=== PATIENT | male | born 1970 | race African-American/Black ===

== ENCOUNTER 2017-07-03 08:44 | Inpatient (IN) | payer OTHER ==
[~2017-07-03] VITALS: Ht 170.2 cm; Wt 117.8 kg
[2017-07-03] VITALS (12 sets, daily range): BP systolic 104–128; BP diastolic 62–89; PULSE 89–101; RESP 20–28; TEMP 97.8–98.3; O2SAT 94–99
[~2017-07-03 08:44] MED LIST: OXYC-360 PO
[2017-07-03] MEDS ORDERED: ASPIRIN 325 MG TAB PO ONE (09:45)
[2017-07-03] MEDS ORDERED: SODIUM CHLORIDE 0.9% FLUSH 10 ML FLUSH IVF PRN (09:45)
--- NOTE | 2017-07-03 10:00 | PD ---
HPI Chief Complaint: Chest Pain Time Seen by Provider: 09:39 Travel History International Travel<30 days: No Contact w/Intl Traveler<30days: No Traveled to known affect area: No History of Present Illness HPI This patient complains of shortness of breath and chest pain. Duration 2 days. Severity is moderate. He has an anterior sternal heaviness and pressure. He also feels dyspneic. Worse with exertion. He does have a cough. Denies fever or hemoptysis. No alleviating factors. Symptoms of no exacerbating factors. Denies history of coronary artery disease. Chest pain is intermittent and spells are lasting around 10 minutes. PFSH Past Medical History Medical History: Denies Significant Hx Diminished Hearing: No Influenza Vaccination: No ?: Not Past Surgical History Surgical History: No Previous Surgery Social History Alcohol Use: Yes (OCASIONALLY) Tobacco Use: Yes (PPD) Substance Use: No Allergies-Medications (Allergen,Severity, Reaction): Coded Allergies: No Known Allergies (Verified Adverse Reaction, Unknown, 07/03/17) Reported Meds & Prescriptions Reported Meds & Active Scripts Active No Active Prescriptions or Reported Medications Review of Systems General / Constitutional: No: Fever Eyes: No: Visual changes HENT: Positive: Congestion, No: Headaches Cardiovascular: Positive: Chest Pain or Discomfort Respiratory: Positive: Cough, Shortness of Breath Gastrointestinal: No: Abdominal Pain Genitourinary: No: Dysuria Musculoskeletal: No: Pain Skin: No Rash Neurologic: No: Weakness Psychiatric: No: Depression Endocrine: No: Polydipsia Hematologic/Lymphatic: No: Easy Bruising Physical Exam Narrative GENERAL: Well-nourished, well-developed patient in no apparent distress. SKIN: Focused skin assessment reveals no rash and nodules. Skin is Warm and dry. HEAD: Atraumatic. Normocephalic. EYES: Pupils equal and round. No scleral icterus. No injection or drainage. ENT: No nasal bleeding or discharge. Mucous membranes pink and moist. NECK: Trachea midline. No JVD. CARDIOVASCULAR: Regular rate and rhythm. No murmur appreciated. RESPIRATORY: No accessory muscle use. Clear to auscultation. Breath sounds equal bilaterally. GASTROINTESTINAL: Abdomen soft, non-tender, obese, nondistended. Hepatic and splenic margins not palpable. MUSCULOSKELETAL: No obvious deformities. No clubbing. No cyanosis. No edema. NEUROLOGICAL: Awake and alert. No obvious cranial nerve deficits. Motor grossly within normal limits. Normal speech. PSYCHIATRIC: Appropriate mood and affect; insight and judgment normal. Data Data Last Documented VS Vital Signs Date Time Temp Pulse Resp B/P (MAP) Pulse Ox O2 Delivery O2 Flow Rate FiO2 07/03/17 12:06 89 28 118/62 (80) 98 Nasal Cannula 2.00 07/03/17 09:27 98.0 Orders Orders Electrocardiogram (07/03/17 09:45) Basic Metabolic Panel (Bmp) (07/03/17 09:45) Ckmb (Isoenzyme) Profile (07/03/17 09:45) Complete Blood Count With Diff (07/03/17 09:45) D-Dimer (07/03/17 09:45) Prothrombin Time / Inr (Pt) (07/03/17 09:45) Act Partial Throm Time (Ptt) (07/03/17 09:45) Troponin I (07/03/17 09:45) Chest, Single Ap (07/03/17 09:45) Ecg Monitoring (07/03/17 09:45) Iv Access Insert/Monitor (07/03/17 09:45) Oximetry (07/03/17 09:45) Oxygen Administration (07/03/17 09:45) Aspirin (Aspirin) (07/03/17 09:45) Sodium Chloride 0.9% Flush (Ns Flush) (07/03/17 09:45) CKMB (07/03/17 09:40) CKMB% (07/03/17 09:40) Ct Pulmonary Angiogram (07/03/17 ) Iohexol 350 Inj (Omnipaque 350 Inj) (07/03/17 11:14) Furosemide Inj (Lasix Inj) (07/03/17 11:45) Nitroglycerin 2% Oint (Nitroglycerin 2% (07/03/17 11:45) Enoxaparin Inj (Lovenox Inj) (07/03/17 11:45) Chest, Pa & Lat (07/03/17 ) Drug Screen, Random Urine (07/03/17 11:56) Alcohol (Ethanol) (07/03/17 11:56) Tylenol (Acetaminophen) (07/03/17 11:56) Salicylates (Aspirin) (07/03/17 11:56) Place In Observation (07/03/17 ) Vital Signs (Adult) MELISSA.Q4H (07/03/17 11:57) Activity Bed Rest (07/03/17 11:57) Durable Medical Equipment Repairer / Telemetry MELISSA.Q8H (07/03/17 11:57) Intake + Output 06,14,22 (07/03/17 11:57) Notify Dr: Other (07/03/17 11:57) Resp Oxygen Tom C Titrat 1-4 L (07/03/17 ) Sodium Chloride 0.9% Flush (Ns Flush) (07/03/17 12:00) Sodium Chloride 0.9% Flush (Ns Flush) (07/03/17 12:00) Labs Laboratory Tests Test 07/03/17 09:40 White Blood Count 8.8 TH/MM3 Red Blood Count 4.66 MIL/MM3 Hemoglobin 13.8 GM/DL Hematocrit 40.0 % Mean Corpuscular Volume 85.8 FL Mean Corpuscular Hemoglobin 29.6 PG Mean Corpuscular Hemoglobin Concent 34.5 % Red Cell Distribution Width 15.5 % Platelet Count 274 TH/MM3 Mean Platelet Volume 8.1 FL Neutrophils (%) (Auto) 70.7 % Lymphocytes (%) (Auto) 18.6 % Monocytes (%) (Auto) 8.7 % Eosinophils (%) (Auto) 0.8 % Basophils (%) (Auto) 1.2 % Neutrophils # (Auto) 6.2 TH/MM3 Lymphocytes # (Auto) 1.6 TH/MM3 Monocytes # (Auto) 0.8 TH/MM3 Eosinophils # (Auto) 0.1 TH/MM3 Basophils # (Auto) 0.1 TH/MM3 CBC Comment DIFF FINAL Differential Comment Prothrombin Time 12.7 SEC Prothromb Time International Ratio 1.3 RATIO Activated Partial Thromboplast Time 25.8 SEC D-Dimer Quantitative (PE/DVT) 1.97 MG/L FEU Blood Urea Nitrogen 10 MG/DL Creatinine 1.02 MG/DL Random Glucose 177 MG/DL Calcium Level 8.7 MG/DL Sodium Level 139 MEQ/L Potassium Level 4.3 MEQ/L Chloride Level 107 MEQ/L Carbon Dioxide Level 27.1 MEQ/L Anion Gap 5 MEQ/L Estimat Glomerular Filtration Rate 95 ML/MIN Total Creatine Kinase 321 U/L Creatine Kinase MB 2.5 NG/ML Creatine Kinase MB % 0.8 % Troponin I 0.90 NG/ML Salicylates Level LESS THAN 1.7 MG/DL MDM Medical Decision Making Medical Screen Exam Complete: Yes Emergency Medical Condition: Yes Medical Record Reviewed: Yes Differential Diagnosis PR, ACS, COPD, pneumonia, PE Narrative Course I have reviewed the patient's electronic medical record. IV placed I reviewed the EKG which shows sinus rhythm and no acute ST elevation I reviewed the chest x-ray which shows a large size heart with bibasilar effusion Extended cardiac monitoring shows sinus rhythm without ectopy CBC is normal Metabolic profile is normal CK is normal Troponin is elevated at 0.9 Coagulation studies are normal D-dimer is elevated and therefore not useful to rule out PE CT pulmonary angiogram was done as dyspnea was his main complaint. It is negative for PE. It shows bilateral pleural effusion and some diffuse groundglass infiltrates the radiologist suspects is edema He does have some mild lower extremity symmetric edema I gave him 40 mg IV Lasix and 100 mg subcutaneous Lovenox and 2 inches of nitroglycerin paste Patient will require inpatient telemetry admission I reviewed with medical residents who will admit for acute coronary syndrome and dyspnea Critical Care Narrative Aggregate critical care time was 35 minutes. Time to perform other separately billable procedures was not included in the critical care time. My time did not include minutes spent treating any other patients simultaneously or on activities that did not directly contribute to the patient's treatment. The services I provided to this patient were to treat and/or prevent clinically significant deterioration that could result in: Cardiopulmonary arrest, myocardial damage, cardiac arrhythmia I provided critical care services requiring my management, as noted below: Chart data review, documentation time, medication orders and management, vital sign assessments/reviewing monitor data, ordering and reviewing lab tests, ordering and interpreting/reviewing x-rays and diagnostic studies, care of the patient and discussion of the patient with the admitting physicians. Diagnosis Primary Impression: Acute coronary syndrome Additional Impression: Shortness of breath Admitting Information Admitting Physician Requests: Admit Scripts No Active Prescriptions or Reported Meds Carlos Le MD Jul 03, 2017 10:00
--- NOTE | 2017-07-03 10:04 | RADRPT ---
EXAM DATE/TIME: 07/03/2017 09:52 [facility] COMPARISON: No previous studies available for comparison. INDICATIONS : Chest pain, short of breath. MEDICAL HISTORY : None. SURGICAL HISTORY : None. ENCOUNTER: Initial ACUITY: 2 days PAIN SCORE: 7/10 LOCATION: Bilateral chest FINDINGS: A single portable frontal view the chest is lordotic in position. Lung bases are limited in evaluatio n due to the lordotic nature in conjunction with the patient's body habitus. No gross infiltrate or e ffusion. Heart is normal in size. Bony structures are unremarkable. CONCLUSION: Limited evaluation of the lung bases as detailed above. A lateral view the chest would be a better ev aluation. No infiltrate or effusion observed. Rodolfo Layne Jr., MD on July 03, 2017 at 10:00 Board Certified Radiologist. This report was verified electronically.
[2017-07-03 10:09] LABS: AUTOMATED NEUTROPHIL # 6.2 TH/MM3 (1.8-7.7); BASOPHIL # 0.1 TH/MM3 (0-0.2); BASOPHIL % 1.2 % (0.0-2.0); EOSINOPHIL # 0.1 TH/MM3 (0-0.4); EOSINOPHIL % 0.8 % (0.0-4.0); HEMOGLOBIN 13.8 GM/DL (13.0-17.0); LYMPH % 18.6 % (9.0-44.0); LYMPHOCYTE # 1.6 TH/MM3 (1.0-4.8); MEAN CELL VOLUME 85.8 FL (80.0-100.0); MEAN CORPUSCULAR HEMOGLOBIN 29.6 PG (27.0-34.0); MEAN CORPUSCULAR HGB CONC 34.5 % (32.0-36.0); MEAN PLATELET VOLUME 8.1 FL (7.0-11.0); MONO % 8.7 % (0.0-8.0); MONOCYTE # 0.8 TH/MM3 (0-0.9); NEUT % 70.7 % (16.0-70.0); PLATELET COUNT 274 TH/MM3 (150-450); RED BLOOD COUNT 4.66 MIL/MM3 (4.50-5.90); RED CELL DISTRIBUTION WIDTH 15.5 % (11.6-17.2); WHITE BLOOD COUNT 8.8 TH/MM3 (4.0-11.0)
[2017-07-03 10:20] LABS: INTERNATIONAL NORMALIZED RATIO 1.3 RATIO; PROTHROMBIN TIME - PATIENT 12.7 SEC (9.8-11.6)
[2017-07-03 10:35] LABS: BICARBONATE 27.1 MEQ/L (21.0-32.0); CALCIUM 8.7 MG/DL (8.5-10.1); CREATININE 1.02 MG/DL (0.60-1.30); D-DIMER 1.97 MG/L FEU (0.00-0.50)
[2017-07-03 10:45] LABS: TROPONIN I 0.9 NG/ML (0.02-0.05)
[2017-07-03] MEDS ORDERED: IOHEXOL 350 MG/ML 10 ML VIAL (for RAD DIAG) IVCONTRAST ONE (11:14)
--- NOTE | 2017-07-03 11:27 | RADRPT ---
EXAM DATE/TIME: 07/03/2017 11:08 [facility] COMPARISON: No previous studies available for comparison. INDICATIONS : Chest pain, shortness of breath. IV CONTRAST: 73 cc Omnipaque 350 (iohexol) IV RADIATION DOSE: 23.22 CTDIvol (mGy) MEDICAL HISTORY : None SURGICAL HISTORY : None. ENCOUNTER: Initial ACUITY: 2 days PAIN SCALE: 10/10 LOCATION: chest TECHNIQUE: Volumetric scanning of the chest was performed using a pulmonary embolism protocol MIP images were re constructed. Using automated exposure control and adjustment of the mA and/or kV according to patien t size, radiation dose was kept as low as reasonably achievable to obtain optimal diagnostic quality images. DICOM format image data is available electronically for review and comparison. Follow-up recommendations for detected pulmonary nodules are based at a minimum on nodule size and pa tient risk factors according to Fleischner Society Guidelines. FINDINGS: Study is breathing motion degraded. PULMONARY ARTERIES: The pulmonary arteries are limited in their evaluation due to breathing motion artifact. This limitat ion involves the segmental branches. The more central pulmonary arteries are well evaluated. No filli ng defects observed. LUNGS: Diffuse bilateral groundglass opacities. No mass or bronchiectasis. PLEURAE: Moderate size bilateral pleural effusions are posteriorly layering. MEDIASTINUM: The heart is at the upper limits of normal in terms of size. No pericardial effusion. Mediastinal rosario nopathy is noted involving the anterior mediastinum. The largest lymph node is posterior to the SVC m easuring 2.8 x 1.9 cm. MUSCULOSKELETAL: Within normal limits for patient age. MISCELLANEOUS: The visualized upper abdominal organs demonstrate no acute abnormality. CONCLUSION: 1. Limited study due to breathing motion artifact. 2. No pulmonary embolus. 3. Bilateral pleural effusions and diffuse bilateral groundglass infiltrates. I suspect pulmonary heena ma. Rodolfo Layne Jr., MD on July 03, 2017 at 11:20 Board Certified Radiologist. This report was verified electronically.
[2017-07-03] MEDS ORDERED: ENOXAPARIN SODIUM 100 MG/ML SYRINGE SQ ONE (11:45)
[2017-07-03] MEDS ORDERED: FUROSEMIDE 40 MG/4 ML VIAL IV PUSH ONE (11:45)
[2017-07-03] MEDS ORDERED: NITROGLYCERIN 2% OINT 1 GM PACKET TOPICAL ONE (11:45)
[2017-07-03] MEDS ORDERED: SODIUM CHLORIDE 0.9% FLUSH 10 ML FLUSH IV FLUSH SCH (12:00)
[2017-07-03] MEDS ORDERED: SODIUM CHLORIDE 0.9% FLUSH 10 ML FLUSH IV FLUSH PRN ×2 (12:00→13:45)
[2017-07-03 12:25] LABS: ACETAMINOPHEN LESS THAN 2.0 MCG/ML (10.0-30.0)
--- NOTE | 2017-07-03 12:43 | RADRPT ---
EXAM DATE/TIME: 07/03/2017 12:19 [facility] COMPARISON: CHEST SINGLE AP, July 03, 2017, 9:52. INDICATIONS : Chest pain. MEDICAL HISTORY : None. SURGICAL HISTORY : None. ENCOUNTER: Initial ACUITY: 1 day PAIN SCORE: 7/10 LOCATION: Bilateral chest FINDINGS: Slight cardiomegaly has not changed. There may be a small loculated pleural effusion on the right beau e posteriorly. Slight degree of pulmonary venous congestion and pulmonary edema is seen. CONCLUSION: Mild CHF and possible mild loculated pleural effusion on the right. Kunal Mock MD on July 03, 2017 at 12:39 Board Certified Radiologist. This report was verified electronically.
--- NOTE | 2017-07-03 13:30 | HHI.HP ---
HPI Service Family Medicine Primary Care Physician No Primary Care Physician Admission Diagnosis ACS,short of breath Diagnoses: Chief Complaint: SOB, CP International Travel<30 Days: No Contact w/Intl Traveler<30days: No Known Affected Area: No History of Present Illness Mr Costa is a 46YO male with no PCP and has been told he has HTN in the past presents with a week of SOB progressively getting worse and new onset intermittent chest pain. He reports the dyspnea began a week ago and he thought it would stop or get better but it hasn't. He feels like he he gets out of breath very easy now and feels very anxious because he feels like he is going to . The CP began within the last day or so and pt states the pain is substernal with radiation to his left shoulder and has occurred both at rest and with walking/activity. The pain is 7/10 on pain scale and is worse with inspiration. Coughing makes the pain worse. He has taken no pain medication and , in fact, takes no medications. He denies cold and flu sxs recently. He has a little lower abdominal pain which he can palpate on his belly, but has no N/V. He says he now has a headache too but doesn't have a hx of HAs. Denies hx of [place] , but feels like he has a fair amount of stress. He denies drug (and specifically, cocaine) use. Denies visual sxs but indicates he has seen bright red blood in his stool recently. (Orlando Pollock MD R1) Review of Systems Constitutional: COMPLAINS OF: Weight gain, DENIES: Fever, Weight loss, Chills, Night Sweats Eyes: DENIES: Blurred vision, Diplopia, Vision loss Ears, nose, mouth, throat: DENIES: Hearing loss, Nasal discharge, Running Nose , Sinus Pain Respiratory: COMPLAINS OF: Cough, Snoring, Wheezing, Shortness of breath, DENIES: Hemoptysis, Sputum production Cardiovascular: COMPLAINS OF: Chest pain (radiation to left shoulder), Palpitations, Dyspnea on Exertion, Lower Extremity Edema, DENIES: Syncope, Orthopnea Gastrointestinal: COMPLAINS OF: Abdominal pain, Bloody stools, Constipation, DENIES: Black stools, Diarrhea, Nausea, Vomiting Genitourinary: DENIES: Urinary frequency, Urinary incontinence, Urgency, Hematuria, Dysuria Musculoskeletal: COMPLAINS OF: Joint pain (left shoulder) Integumentary: DENIES: Pruritus, Rash Hematologic/lymphatic: DENIES: Lymphadenopathy Neurologic: COMPLAINS OF: Headache, DENIES: Paresthesias, Seizures (Orlando Pollock MD R1) Past Family Social History Past Medical History denies; however, has been told in the past that he has high blood pressure Past Surgical History none Reported Medications none (Orlando Pollock MD R1) Allergies: Coded Allergies: No Known Allergies (Verified Allergy, Unknown, 07/03/17) Active Ordered Medications Current Medications Medications (Trade) Dose Ordered Sig/Elsa Route Start Time Stop Time Status Last Admin (NS Flush) 2 ml UNSCH PRN IVF 07/03/17 09:45 (NS Flush) 2 ml UNSCH PRN IV FLUSH 07/03/17 12:00 (NS Flush) 2 ml BID IV FLUSH 07/03/17 12:00 07/03/17 12:42 Family History Mother - 62 YOA of COPD, extensive smoking hx Father - in 60s of HTN Social History EtOH - none Tobacco - smokes 1ppd x 20 years Drug - none Lives with Sakshi and daughter No pets (Orlando Pollock MD R1) Physical Exam Vital Signs Vital Signs Date Time Temp Pulse Resp B/P (MAP) Pulse Ox O2 Delivery O2 Flow Rate FiO2 07/03/17 12:06 89 28 118/62 (80) 98 Nasal Cannula 2.00 07/03/17 10:30 99 Nasal Cannula 2.00 07/03/17 09:27 90 28 98 Nasal Cannula 2.00 07/03/17 09:27 98.0 93 28 122/64 (83) 99 Nasal Cannula 2.00 07/03/17 08:46 97.8 101 26 120/88 (99) 97 Physical Exam GENERAL: This is a well-nourished, well-developed obese AAM patient, lying in bed in moderate distress. SKIN: No rashes or ecchymose. Cool and dry. Venous stasis dermatitis over bilateral LEs below the knees. HEAD: Atraumatic. Normocephalic. EYES: Pupils equal round and reactive. Extraocular motions intact. No scleral icterus. No injection or drainage. ENT: Nose without bleeding, drainage or septal abnormality. Throat without erythema, tonsillar hypertrophy or exudate. Uvula midline. Airway patent. MMM. NECK: Trachea midline. No lymphadenopathy. Supple, nontender, no meningeal signs. CARDIOVASCULAR: Regular rate and rhythm without murmur, gallop, or rub. RESPIRATORY: Distant bibasilar breath sounds c/w fluid level posteriorly. Upper lung padilla CTAB. No wheezes, rales, or rhonchi. GASTROINTESTINAL: Abdomen soft, non-tender, distended. No hepato-splenomegaly, or palpable masses. No guarding. MUSCULOSKELETAL: Extremities without clubbing, cyanosis, or edema. No joint tenderness, effusion, or edema noted. No calf tenderness. NEUROLOGICAL: Awake and alert. Cranial nerves II through XII intact. Motor and sensory grossly within normal limits. Five out of 5 muscle strength in all muscle groups. Normal speech. Laboratory Laboratory Tests Test 07/03/17 09:40 White Blood Count 8.8 Red Blood Count 4.66 Hemoglobin 13.8 Hematocrit 40.0 Mean Corpuscular Volume 85.8 Mean Corpuscular Hemoglobin 29.6 Mean Corpuscular Hemoglobin Concent 34.5 Red Cell Distribution Width 15.5 Platelet Count 274 Mean Platelet Volume 8.1 Neutrophils (%) (Auto) 70.7 Lymphocytes (%) (Auto) 18.6 Monocytes (%) (Auto) 8.7 Eosinophils (%) (Auto) 0.8 Basophils (%) (Auto) 1.2 Neutrophils # (Auto) 6.2 Lymphocytes # (Auto) 1.6 Monocytes # (Auto) 0.8 Eosinophils # (Auto) 0.1 Basophils # (Auto) 0.1 CBC Comment DIFF FINAL Differential Comment Prothrombin Time 12.7 Prothromb Time International Ratio 1.3 Activated Partial Thromboplast Time 25.8 D-Dimer Quantitative (PE/DVT) 1.97 Blood Urea Nitrogen 10 Creatinine 1.02 Random Glucose 177 Calcium Level 8.7 Sodium Level 139 Potassium Level 4.3 Chloride Level 107 Carbon Dioxide Level 27.1 Anion Gap 5 Estimat Glomerular Filtration Rate 95 Total Creatine Kinase 321 Creatine Kinase MB 2.5 Creatine Kinase MB % 0.8 Troponin I 0.90 Salicylates Level LESS THAN 1.7 Acetaminophen Level LESS THAN 2.0 Ethyl Alcohol Level LESS THAN 3 (Orlando Pollock MD R1) Result Diagram: 07/03/17 0940 07/03/17 0940 Imaging Last Impressions Chest X-Ray 07/03/17 0945 Signed Impressions: Service Date/Time: June 09:52 - CONCLUSION: Limited evaluation of the lung bases as detailed above. A lateral view the chest would be a better evaluation. No infiltrate or effusion observed. Rodolfo Layne Jr., MD CT Angiography 07/03/17 0000 Signed Impressions: Service Date/Time: June 11:08 - CONCLUSION: 1. Limited study due to breathing motion artifact. 2. No pulmonary embolus. 3. Bilateral pleural effusions and diffuse bilateral groundglass infiltrates. I suspect pulmonary edema. Rodolfo Layne Jr., MD (Orlando Pollock MD R1) Septic Shock Reassessment Septic shock perfusion: reassessment completed (Orlando Pollock MD R1) Caprini VTE Risk Assessment Caprini VTE Risk Assessment: No/Low Risk (score <= 1) Caprini Risk Assessment Model Point Value = 1 Point Value = 2 Point Value = 3 Point Value = 5 Age 41-60 Minor surgery BMI > 25 kg/m2 Swollen legs Varicose veins or History of unexplained or recurrent spontaneous Oral contraceptives or hormone replacement Sepsis (< 1 month) Serious lung disease, including pneumonia (< 1 month) Abnormal pulmonary function Acute myocardial infarction Congestive heart failure (< 1 month) History of inflammatory bowel disease Medical patient at bed rest Age 61-74 Arthroscopic surgery Major open surgery (> 45 min) Laparoscopic surgery (> 45 min) Malignancy Confined to bed (> 72 hours) Immobilizing plaster cast Central venous access Age >= 75 History of VTE Family history of VTE Factor V Leiden Prothrombin [id number] Lupus anticoagulant Anticardiolipin antibodies Elevated serum homocysteine Heparin-induced thrombocytopenia Other congenital or acquired thrombophilia Stroke (< 1 month) Elective arthroplasty Hip, pelvis, or leg fracture Acute spinal cord injury (< 1 month) Prophylaxis Regimen Total Risk Factor Score Risk Level Prophylaxis Regimen 0-1 Low Early ambulation 2 Moderate Order ONE of the following: *Sequential Compression Device (SCD) *Heparin 5000 units SQ BID 3-4 Higher Order ONE of the following medications: *Heparin 5000 units SQ TID *Enoxaparin/Lovenox 40 mg SQ daily (WT < 150 kg, CrCl > 30 mL/min) *Enoxaparin/Lovenox 30 mg SQ daily (WT < 150 kg, CrCl > 10-29 mL/min) *Enoxaparin/Lovenox 30 mg SQ BID (WT < 150 kg, CrCl > 30 mL/min) AND/OR *Sequential Compression Device (SCD) 5 or more Highest Order ONE of the following medications: *Heparin 5000 units SQ TID (Preferred with Epidurals) *Enoxaparin/Lovenox 40 mg SQ daily (WT < 150 kg, CrCl > 30 mL/min) *Enoxaparin/Lovenox 30 mg SQ daily (WT < 150 kg, CrCl > 10-29 mL/min) *Enoxaparin/Lovenox 30 mg SQ BID (WT < 150 kg, CrCl > 30 mL/min) AND *Sequential Compression Device (SCD) (Orlando Pollock MD R1) Assessment and Plan Assessment and Plan 46 YO male with likely Hx of HTN p/w 2 days of CP and 1 week of SOB - ACS r/o empirically; Dr Adhikari took pt to [facility] for left heart cath reported to be wnl, but with concern for cardiomyopathy. Impression: D-dimer 1.57 CTA with No pulmonary embolus. Bilateral pleural effusions and diffuse bilateral ground glass infiltrates. pulmonary edema suspected. Repeat CXR with mild CHF and possible mild loculated pleural effusion on right EKG: POSSIBLE LEFT ATRIAL ENLARGEMENT; MARKED LEFT AXIS DEVIATION; ST DEVIATION AND MODERATE T-WAVE ABNORMALITY, CONSIDER LATERAL ISCHEMIA ABNORMAL ECG Since the prior tracing, there has been no significant change UDS and EtOH neg CBC wnl BMP wnl (glucose 177) Tropnin 0.90 -> 0.81-> 0.68 BNP 467 Total CK 321-> 311-> 253 CK-MB wnl x3 Lipid panel Trig 200 / Chol 186 / LDL 117 / HDL 28.9 1. Atypical CP - ACS r/o - pt risk factors include obesity and smoking hx -As per EKG above, consider lateral ischemia -As per CXR above, Mild CHF -Morphine 2mg q8h IV PRN -O2 supplemental and titrate for effect -Nitroglycerin ointment 0.5inch q3h PRN -ASA 325mg -Consider starting BB in AM (holding due to CHF component and BP in 120s/60s) -Consider starting NICHELLE in AM -Atorvastatin 40mg qhs -Heparin -ECHO results wnl but with cardiomyopathy -Left heart cath wnl 07/03 -Lasix 40mg BID -Lipid panel results as above -Ativan 0.5mg q6h IV PRN 2. Dyspnea -Supplemental O2 as above -Duonebs q4h scheduled -Albuterol nebs q4h PRN -Mucinex BID 3. Tobacco abuse -Encourage smoking cessation 4. HLD -Atorvastatin 40 qhs as above -Encourage lifestyle changes in weight and diet 5. FEN/GI/PPx: Fluids: PO only; pt fluid overloaded Electrolytes: wnl; will monitor and replete as necessary Nutrition: heart healthy diet; Na restriction 2gm per day GI: Protonix 40mg PO daily PPx: Redose Heparin in AM Code Status Full Code Discussed Condition With Korin Pritchard and Diana (Orlando Pollock MD R1) Attending Attestation The patient has been seen and examined. The chart and all resident notes have been reviewed. I agree that inpatient care is appropriate and that a two midnight stay is expected for the reasons documented in the resident history and physical. I have discussed this with the resident and certify the resident s order for inpatient admission. (Alicia Pritchard MD) Problem List: (1) Acute coronary syndrome ICD Codes: I24.9 - Acute ischemic heart disease, unspecified Status: Acute (2) Shortness of breath ICD Codes: R06.02 - Shortness of breath Status: Acute (3) HLD (hyperlipidemia) ICD Codes: E78.5 - Hyperlipidemia, unspecified (4) Tobacco abuse ICD Codes: Z72.0 - Tobacco use (5) FEN/GI/PPx (Orlando Pollock MD R1) Problem Qualifiers (1) HLD (hyperlipidemia): Qualified Codes: E78.2 - Mixed hyperlipidemia Orlando Pollock MD R1 Jul 03, 2017 13:30 Alicia Pritchard MD Jul 07, 2017 09:20
[2017-07-03] MEDS ORDERED: NITROGLYCERIN 2% OINT 1 GM PACKET TOP PRN (13:45)
[2017-07-03] MEDS ORDERED: ONDANSETRON HCL 4 MG/2 ML VIAL IV PUSH PRN (13:45)
[2017-07-03] MEDS ORDERED: DOCUSATE SODIUM 100 MG CAP PO PRN (13:45)
[2017-07-03] MEDS ORDERED: LORazepam 2 MG/ML VIAL IV PUSH PRN (14:00)
[2017-07-03] MEDS: MORPHINE SULFATE 4 MG/ML INJ IV PUSH PRN ×2 (14:32→19:31)
--- NOTE | 2017-07-03 15:24 | PD.CONS ---
HPI Consult Requested By Primary Care Physician No Primary Care Physician History of Present Illness 46 y/o M smoker, obese that presents with complaints of worsening SOB on minimal exertion and chest pain with inspiration. No leg edema or PND. D-Dimer elevated. CTA negative for PE. Troponin trending up. EKG SR with inferior Q waves and non specific ST changes. Cardiology consulted for further evaluation and management. Review of Systems Consitutional: DENIES: Fatigue, Fever, Chills, Weight gain, Weight loss Eyes: DENIES: Amaurosis Fugax, Change in vision HEENT: DENIES: Lightheadedness, Change in hearing Respiratory: COMPLAINS OF: See HPI, Shortness of breath, DENIES: Cough, Snoring , Wheezing, Sputum production Cardiovascular: COMPLAINS OF: See HPI, Chest pain, DENIES: Palpitations, Syncope, Tachycardia Gastrointestinal: DENIES: Nausea, Vomiting, Change in bowel habits, Reflux, Bloody stools, Melena Genitourinary: DENIES: Urinary incontinence, Difficulty voiding Integumentary: DENIES: Rash Neurologic: DENIES: Tingling or numbness, Memory problems, Poor Balance, Stroke symptoms Musculoskeletal: DENIES: Joint pain, Muscle pain, Limited range of motion, Back pain Psychiatric: DENIES: Anxiety, Depression, Sleep disturbances Endocrine: DENIES: Weight gain, Weight loss, Thyroid disease Past Family Social History Allergies: Coded Allergies: No Known Allergies (Verified Allergy, Unknown, 07/03/17) Reported Medications Reported Meds & Active Scripts Active No Active Prescriptions or Reported Medications Active Ordered Medications Current Medications Medications (Trade) Dose Ordered Sig/Elsa Route Start Time Stop Time Status Last Admin (NS Flush) 2 ml BID IV FLUSH 07/03/17 21:00 (NS Flush) 2 ml UNSCH PRN IV FLUSH 07/03/17 13:45 (Ecotrin Ec) 325 mg DAILY PO 07/04/17 09:00 (Nitroglycerin 2% Oint) 0.5 inch Q6HR PRN TOP 07/03/17 13:45 (Morphine Inj) 2 mg Q2HR PRN IV PUSH 07/03/17 13:45 07/03/17 14:32 (Tylenol) 650 mg Q6H PRN PO 07/03/17 13:45 (Colace) 100 mg BID PRN PO 07/03/17 13:45 (Zofran Inj) 4 mg Q6H PRN IV PUSH 07/03/17 13:45 (Lipitor) 40 mg HS PO 07/03/17 21:00 (Ativan Inj) 0.5 mg Q6H PRN IV PUSH 07/03/17 14:00 Social History smoker Physical Exam Vital Signs Vital Signs Date Time Temp Pulse Resp B/P (MAP) Pulse Ox O2 Delivery O2 Flow Rate FiO2 07/03/17 14:06 98.3 94 20 128/69 (88) 97 07/03/17 12:06 89 28 118/62 (80) 98 Nasal Cannula 2.00 07/03/17 10:30 99 Nasal Cannula 2.00 07/03/17 09:27 90 28 98 Nasal Cannula 2.00 07/03/17 09:27 98.0 93 28 122/64 (83) 99 Nasal Cannula 2.00 07/03/17 08:46 97.8 101 26 120/88 (99) 97 Physical Exam GENERAL: Well-nourished, well-developed patient. SKIN: Warm and dry. HEAD: Normocephalic. EYES: No scleral icterus. No injection or drainage. NECK: Supple, trachea midline. No JVD or lymphadenopathy. CARDIOVASCULAR: Regular rate and rhythm without murmurs, gallops, or rubs. RESPIRATORY: Breath sounds equal bilaterally. No accessory muscle use. GASTROINTESTINAL: Abdomen soft, non-tender, nondistended. EXTREMITIES: No cyanosis, or edema. NEUROLOGICAL: Awake, alert, and oriented x 3. Non-focal. Laboratory Laboratory Tests Test 07/03/17 09:40 07/03/17 13:42 07/03/17 14:24 White Blood Count 8.8 Red Blood Count 4.66 Hemoglobin 13.8 Hematocrit 40.0 Mean Corpuscular Volume 85.8 Mean Corpuscular Hemoglobin 29.6 Mean Corpuscular Hemoglobin Concent 34.5 Red Cell Distribution Width 15.5 Platelet Count 274 Mean Platelet Volume 8.1 Neutrophils (%) (Auto) 70.7 Lymphocytes (%) (Auto) 18.6 Monocytes (%) (Auto) 8.7 Eosinophils (%) (Auto) 0.8 Basophils (%) (Auto) 1.2 Neutrophils # (Auto) 6.2 Lymphocytes # (Auto) 1.6 Monocytes # (Auto) 0.8 Eosinophils # (Auto) 0.1 Basophils # (Auto) 0.1 CBC Comment DIFF FINAL Differential Comment Prothrombin Time 12.7 Prothromb Time International Ratio 1.3 Activated Partial Thromboplast Time 25.8 D-Dimer Quantitative (PE/DVT) 1.97 Blood Urea Nitrogen 10 Creatinine 1.02 Random Glucose 177 Calcium Level 8.7 Sodium Level 139 Potassium Level 4.3 Chloride Level 107 Carbon Dioxide Level 27.1 Anion Gap 5 Estimat Glomerular Filtration Rate 95 Total Creatine Kinase 321 Creatine Kinase MB 2.5 Creatine Kinase MB % 0.8 Troponin I 0.90 Salicylates Level LESS THAN 1.7 Acetaminophen Level LESS THAN 2.0 Ethyl Alcohol Level LESS THAN 3 Urine Opiates Screen NEG Urine Barbiturates Screen NEG Urine Amphetamines Screen NEG Urine Benzodiazepines Screen NEG Urine Cocaine Screen NEG Urine Cannabinoids Screen NEG Result Diagram: 07/03/17 0940 07/03/17 0940 Imaging Last Impressions Chest X-Ray 07/03/17 0945 Signed Impressions: Service Date/Time: June 09:52 - CONCLUSION: Limited evaluation of the lung bases as detailed above. A lateral view the chest would be a better evaluation. No infiltrate or effusion observed. Rodolfo Layne Jr., MD CT Angiography 07/03/17 0000 Signed Impressions: Service Date/Time: June 11:08 - CONCLUSION: 1. Limited study due to breathing motion artifact. 2. No pulmonary embolus. 3. Bilateral pleural effusions and diffuse bilateral groundglass infiltrates. I suspect pulmonary edema. Rodolfo Layne Jr., MD Assessment and Plan Problem List: (1) Shortness of breath ICD Codes: R06.02 - Shortness of breath Status: Acute Plan: 46y/o M with cardiac risk factors that include obesity, smoker presents with elevated troponin and EKG changes in the setting of worsening WOLF and atypical chest pain. No previous cardiac hx, however significant SOB/WOLF ? angina equivalent. Recommend LHC for CAD risk stratification. Risk benefits of LHC +/- including but not limited to neurovascular trauma, kidney failure, stroke, CABG, bleeding, infection and have been explained to patient. He understands risk and is willing to proceed. Recommendations: 1. Keep NPO for LHC today 2. ECHO 3. ASA and Heparin drip 4. Lipid panel 5. Smoking cessation Levi Guerrero MD Jul 03, 2017 15:24
[2017-07-03] MEDS ORDERED: HEPARIN-NS/PF INJ 1,000 ML ONE (15:32)
[2017-07-03] MEDS ORDERED: MIDAZOLAM HCL 2 MG/2 ML VIAL ONE (15:32)
[2017-07-03] MEDS ORDERED: VERAPAMIL HCL 5 MG/2 ML VIAL ONE (15:42)
[2017-07-03] MEDS ORDERED: NITROGLYCERIN INJ 5 ML ONE (15:42)
[2017-07-03] MEDS ORDERED: HEPARIN SODIUM - IV 10,000 UNITS/10 ML VIAL ONE (15:42)
[2017-07-03] MEDS ORDERED: FUROSEMIDE 40 MG/4 ML VIAL ONE (16:05)
--- NOTE | 2017-07-03 16:22 | CATHPROC ---
[employer] HIS Report Study Information Study Number Admission Scheduled Start Study Start [id number] Jul 03 2017 12:27PM 07/03/2017 Jul 03 2017 3:32PM [place] Service Cardiac Catheterization Admit Source Facility Department Emergency department [facility] - [employer] Reading Teacher Physician and Clinical Staff Initial Levi Bal Bisque Finishernav Spivey RN, Darren Gordon RN Other cathlab, cathlab Recorder Nany Herndon,VISUAL AID EXPERT TECH2 Scrub Chip Baez RCIS(BS) Procedures Performed Procedure Location (Site) Vessel Name Coronary Angiograms LCA Left Coronary Coronary Angiograms RCA Right Coronary L Heart Cath LV Gram-hand inj. LV LV Ventricle Equipment Time Laborer Driver Description Size Mfg Part Number Used/Scraped TRANSDUCER, TRUWAVE [id number] 15:33 CISNEROS PORTER * Used W/STOCKCOCK *[id number] TRANSDUCER, TRUWAVE [id number] 15:40 CISNEROS PORTER * Used W/STOCKCOCK *[id number] 15:40 [employer] [place] PACK, CCL CUSTOM * Used *[id number] 15:33 [employer] [place] PACK, CCL CUSTOM * Used *[id number] 15:33 [employer] SUPPORT, ARTERIAL ADULT [id number] *[id number] Used 15:40 [employer] SUPPORT, ARTERIAL ADULT 43427 *[id number] Used [id number] 16:05 MEDTRONIC JL 3.5 DXTERITY CATHETER FR 5 Used *[id number] 15:58 [employer] JR 4.0 DXTERITY CATHETER FR 5 Used *[id number] BAND, RADIAL COMPRESSION TR [id number] 16:12 [employer] 29CM Used LARGE 29 *[id number] 15:40 [employer] WIRE, 3MMJ .035 180CM 180CM Used *[id number] [id number] 15:33 [employer] WIRE, 3MMJ .035 180CM 180CM Used *[id number] 15:33 NAMIC MANIFOLD, 4 PORT * Used *[id number] 15:40 [employer] MANIFOLD, 4 PORT * Used *[id number] 15:33 [employer] OMNIPAQUE, 350 MG, 150ML 150ML [id number] Used 15:40 [employer] OMNIPAQUE, 350 MG, 150ML 150ML [id number] Used [id number] 15:40 [employer] BLANKET,WARM AIR CCL * Used *[id number] [id number] 15:33 [facility] BLANKET,WARM AIR CCL * Used *[id number] SHEATH, FR6 TRANSRADIAL RM*[id number] 15:33 [employer] MED[employer] FR 6 Used SLENDER 10CM *[id number] SHEATH, FR6 TRANSRADIAL [id number] 15:40 [employer] FR 6 Used SLENDER 10CM *[id number] Equipment Model, Serial, Lot Number and Expiration Data Description Model Number Serial Number Lot Number Expiration Date JR 4.0 DXTERITY CATHETER [id number] 03-13-2020 History: Allergies Allergy Reaction No Known Allergies History: Risk Factors Family History of Hypertension Dyslipidemia Previous [place] Previous Heart Failure Premature CAD No No No No No Prior Valve Prior PCI Prior CABG Surgery No No No Cerebrovascular Peripheral Artery Chronic Lung On Dialysis Diabetes Disease Disease Disease No No No No No History: Symptoms/Diagnosis Selection Items SOB History: Stress Tests Stress or Imaging Studies Performed No History: Other Current Smoker Packs a Day Years Used Pack Years Yes 1 20 Labs Hgb (g/dl) Hct (%) WBC (l/cumm) Platelets (thousands) 11.60-17.00 35.00-51.00 4.00-11.00 150.00-450.00 13.8 40 8.8 274 Glucose (mg/dl) BUN (mg/dl) Creatinine (mg/dl) BUN:Creatinine (1:x) 74.00-106.00 7.00-18.00 0.50-1.30 10.00-20.00 177 10 1.0 10 Na (meq/l) K (meq/l) 136.00-145.00 3.50-5.10 139 4.3 Troponin I (ng/ml) CPK-MB (ng/ML) 0.02-0.05 0.50-3.60 0.9 2.5 Medication Medication Total Dose (Bolus/Oral) Medication Total Dosage/Unit 1% XYLOCAINE 20 mL FENTANYL 50 mcg LASIX 40 mg OXYGEN 3 l/min RADIAL COCKTAIL 5 mL (Bolus) VERSED 1 mg Medications (Bolus/Oral) Medication Time Given Dosage/Unit Administered By Reason OXYGEN 07/03/2017 3:31:50 PM 3 l/min Levi Guerrero Patient arrived on 3 l/min OXYGEN given by Levi Guerrero via Nasal. Ordered by Levi Guerrero. FENTANYL 07/03/2017 3:55:44 PM 50 mcg Wojciech Spivey RN 50 mcg FENTANYL given in lab by Wojciech Spivey RN in Left Antecubital via Peripheral IV. Ordered by Levi Washington. VERSED 07/03/2017 3:56:10 PM 1 mg Wojciech Spivey RN 1 mg VERSED given in lab by Wojciech Spivey RN in Left Antecubital via Peripheral IV. Ordered by Levi Haskins. 1% XYLOCAINE 07/03/2017 3:56:20 PM 20 mL Levi Guerrero 20 mL 1% XYLOCAINE given in lab by Levi Guerrero in Right Radial via Subcutaneous. Ordered by Levi Washington. Ntg 200mcg Verapamil 2.5mg Heparin RADIAL COCKTAIL 07/03/2017 3:57:48 PM 5 mL (Bolus) Wojciech Spivey RN 2500U 5 mL (Bolus) RADIAL COCKTAIL given in lab by Wojciech Spivey RN via Radial. Using [Solution Name]. Order ed by Levi Guerrero. Reason: Ntg 200mcg Verapamil 2.5mg Heparin 2500U. LASIX 07/03/2017 4:08:59 PM 40 mg Wojciech Spivey RN 40 mg LASIX given in lab by Wojciech Spivey RN in Right Antecubital via Peripheral IV. Ordered by Levi Stapleton. Medication (Drip) Medication Time Given Dosage/Unit Concentration/Unit Diluent (ml) Solution IV Solutions 07/03/2017 3:32:06 PM 0 mL (IV) 500 NaCl .9 IV Solutions given in lab by Wojciech Spivey RN in Left Antecubital via Peripheral IV. Pump/Drip Flow = 20 ml/hr using NaCl .9. Ordered by Levi Guerrero. Initial Case Assessment Cardiovascular HR NIBP 91 120/81 Edema Present Skin color Skin None Normal Warm Dry Circulatory - Right Pulses Dorsalis Pedis Femoral Radial 3 3 3 Scale (0,1,2,3,4,d) Circulatory - Left Pulses Dorsalis Pedis Femoral Radial 3 Scale (0,1,2,3,4,d) Neurological State Oriented to time-place- Alert Moves all extremities person Respiration - General Respiration Rate SpO2 (%) O2 (lpm) (B/min) 13 97 3 Final Case Assessment Cardiovascular HR NIBP 93 141/74 Edema Present Skin color Skin None Normal Warm Dry Circulatory - Right Pulses Dorsalis Pedis Femoral 3 3 Scale (0,1,2,3,4,d) Circulatory - Left Pulses Dorsalis Pedis Femoral 3 Scale (0,1,2,3,4,d) Neurological State Oriented to time-place- Alert Moves all extremities person Respiration - General Respiration Rate SpO2 (%) O2 (lpm) (B/min) 15 95 3 Chronological Log Time Study Chronological Log 15::42 Patient arrived via Bed. 15::43 Patient Name, D.O.B, / Armband Verified By R.N. 15::43 Consent signed by the physician and the patient and verified by the [employer] Reading Teacher staff. 15:31:44 Pre-op and post- op instructions given; patient acknowledges understanding of instructions. Verbal Stimulation=~VERBAL~ Physical Stimulation=~PHYSICAL~ Airway=~AIRWAY~ Respiration=~RESPIR ATION~ 15::44 TOTAL=~TOTAL~. (0=absent, 1=limited, 2=present) 15:31:48 Presedation assessment performed by [employer] Reading Teacher RN. 15:31:50 Patient arrived on 3 l/min OXYGEN given by Levi Guerrero via Nasal. Ordered by Levi Saldana. 15:31:55 Allens test performed on the right radial and ulnar artery. 15:31:57 Patient has been NPO for More than 6Hrs. 15:31:58 Skin Breakdown- 15:31:59 Patient Warmer Placed on the Table. 15:32:03 Lita Prominences Protected 15:32:05 A # 20 IV was noted in the Antecubital (left). Grade = 0 IV Solutions given in lab by Wojciech Spivey RN in Left Antecubital via Peripheral IV. Pump/Drip F low = 20 ml/hr using NaCl 15:32:06 .9. Ordered by Levi Guerrero. 15:32:06 History and physical on the chart or being dictated. Assessment: Initial Case, HR=91 BPM, ZLFW=080/81 mmhg, Edema=None, Color=Normal, Skin = Warm, D ry Right Pulses: Asad Ped=3, Femoral=3, Radial=3 15:32:08 Left Pulses: Femoral=3 Neurological: State=Alert, Ox3, FINLEY Respiration: Resp=13 B/min, SpO2=97 %, O2=3 lpm Vitals capture started with the following parameters, Patient=Adult, Interval=5 min, Initial Pr rewbzl=494 mmHg, 15:39:10 Deflation Rate=5 mmHg, Cuff placed on Left Arm 15:39:48 HR=91 bpm, FMGF=220/81 mmhg, SpO2=97.0 %, Resp=13 B/min, Pain=0, Marta=10, Teixeira=2 15:40:39 Allens test performed on the right radial and ulnar artery. 15:41:13 Reference ECG taken 15:44:41 HR=91 bpm, LEOL=394/81 mmhg, SpO2=96.0 %, Resp=14 B/min, Pain=0, Marta=10, Teixeira=2 15:47:18 Right Radial right groin prepped with 2% chlorhexidine, and draped after a 3 min. waiting t pauly. 15:49:44 HR=91 bpm, WTDB=062/79 mmhg, SpO2=97 %, Resp=13 B/min, Pain=0, Marta=10, Teixeira=2 15:51:32 Pressure channel 1 zeroed. 15:54:43 HR=95 bpm, BDIK=413/94 mmhg, SpO2=97.0 %, Resp=15 B/min, Pain=0, Marta=10, Teixeira=2 15:55:44 50 mcg FENTANYL given in lab by Wojciech Spivey RN in Left Antecubital via Peripheral IV. Orde red by Levi Guerrero. 15:56:10 1 mg VERSED given in lab by Wojciech Spivey RN in Left Antecubital via Peripheral IV. Ordered by Levi Guerrero. Time Out. Correct patient, correct procedure, correct physician, power injector loaded, or not loaded with contrast with 15:56:17 surgical team present. Time Out Concurred by MD and individual staff in procedure. 15:56:18 Case Start 20 mL 1% XYLOCAINE given in lab by Levi Guerrero in Right Radial via Subcutaneous. Ordered by Cesar 15:56:20 Levi. 15:57:40 Access site was Radial Artery. 5 mL (Bolus) RADIAL COCKTAIL given in lab by Wojciech Spivey RN via Radial. Using [Solution Name]. Ordered by Shayy 15:57:48 Levi Shoemaker. Reason: Ntg 200mcg Verapamil 2.5mg Heparin 2500U. A JR 4.0 DXTERITY CATHETER FR 5 was advanced over a wire. OMNIPAQUE, 350 MG, 150ML 150ML was us ed for 15:58:23 injections. Recorded Pressure: LV, HR=92, Condition=Condition 1 15:58:59 (Left Ventricle) LV 106/28/25 15:59:00 The LV was manually injected with 10 cc's and visualized. OMNIPAQUE, 350 MG, 150ML 150ML us ed. 15:59:42 GV=014 bpm, LUAJ=562/98 mmhg, SpO2=96.0 %, Resp=29 B/min, Pain=0, Marta=10, Teixeira=2 16:01:19 The RCA was injected and visualized at various angles. OMNIPAQUE, 350 MG, 150ML 150ML used . 16:04:12 Catheter was removed A JL 3.5 DXTERITY CATHETER FR 5 was advanced over a wire. OMNIPAQUE, 350 MG, 150ML 150ML was us ed for 16:04:13 injections. Recorded Pressure: Ao, HR=93, Condition=Condition 1 16:04:15 (Aorta) Ao 113/86/99 16:04:41 HR=94 bpm, IJGD=293/88 mmhg, SpO2=93.0 %, Resp=30 B/min, Pain=0, Marta=10, Teixeira=2 16:04:44 The LCA was injected and visualized at various angles. contrast used. 16:05:42 Catheter was removed 16:05:46 Case End 16:08:59 40 mg LASIX given in lab by Wojciech Spivey RN in Right Antecubital via Peripheral IV. Ordered by Levi Guerrero. 16:09:44 HR=93 bpm, XOGD=804/74 mmhg, SpO2=95.0 %, Resp=15 B/min, Pain=0, Marta=10, Teixeira=2 16:11:18 Catheter(s) removed without difficulty Radial Compression Device Used. 10 mLs of air placed in BAND, RADIAL COMPRESSION TR LARGE 29 29 CM. Affected 16:11:20 hand 93 % O2 saturation. 16:11:24 No case complications noted. 16:11:24 Case complication noted. 16:11:25 Cine recording checked. 16:11: Bedside Report will be given. 16:11:29 Contrast Scanned 16:11:31 A Left Heart Cath was performed. Assessment: Final Case, HR=93 BPM, MTFV=144/74 mmhg, Edema=None, Color=Normal, Skin = Warm, Dr y Right Pulses: Asad Ped=3, Femoral=3 16:12:18 Left Pulses: Femoral=3 Neurological: State=Alert, Ox3, FINLEY Respiration: Resp=15 B/min, SpO2=95 %, O2=3 lpm 16:12:25 Vitals capture stopped. End Study - Contrast Media Used In Study Contrast Total Opened (mL) Total Used (mL) Total Wasted (mL) Omnipaque 25 25 0 End Study - Maximum Contrast Load Max Contrast Load (mL) 575.0 End Study - Radiation Exposure Fluoro Time (minutes) 3.3 End Study - Patient Disposition Complications Transferred To Telemetry Bed
[2017-07-03 16:25] LABS: TROPONIN I 0.81 NG/ML (0.02-0.05)
[2017-07-03] MEDS ORDERED: MISC INFORMATION XX ONE (16:30)
[2017-07-03] MEDS ORDERED: IOHEXOL 350 MG/ML 50 ML BTL (for Cath Lab) OTHER ONE (16:31)
[2017-07-03] MEDS: FUROSEMIDE 40 MG/5 ML UNIT DOSE CUP NG SCH (18:00)
[2017-07-03] MEDS ORDERED: NITROGLYCERIN 2% OINT 1 GM PACKET ONE (18:41)
[2017-07-03] MEDS ORDERED: RESP: ALBUTEROL 2.5 MG/IPRATROPIUM 0.5 MG NEB (PRN) ONE (18:42)
[2017-07-03] MEDS: ATORVASTATIN 40 MG TAB PO SCH (19:32)
[2017-07-03] MEDS: ACETAMINOPHEN 325 MG TAB PO PRN (19:32)
[2017-07-03] MEDS: SODIUM CHLORIDE 0.9% FLUSH 10 ML FLUSH IV FLUSH SCH (19:32)
[2017-07-03 22:21] LABS: CHOLESTEROL 186 MG/DL (120-200); TRIGLYCERIDES 200 MG/DL (42-150)
--- NOTE | 2017-07-03 22:26 | HHI.FPPN ---
Subjective Subjective Patient seen and examined. Case reviewed and discussed Please refer to resident H&P for further details regarding HPI, ROS, PMH, SurgHx , FH and SocHx In summary, patient is a 46yoM presenting with 2 days history of shortness of breath and sudden onset of chest pain while walking to work yesterday Patient is seen in his ER room, complaining of 8/10 substernal chest pain. Shortness of breath stable. Does report weight gain. [facility] Objective Objective Last Impressions Chest X-Ray 07/03/17 0945 Signed Impressions: Service Date/Time: June 09:52 - CONCLUSION: Limited evaluation of the lung bases as detailed above. A lateral view the chest would be a better evaluation. No infiltrate or effusion observed. Rodolfo Layne Jr., MD CT Angiography 07/03/17 0000 Signed Impressions: Service Date/Time: June 11:08 - CONCLUSION: 1. Limited study due to breathing motion artifact. 2. No pulmonary embolus. 3. Bilateral pleural effusions and diffuse bilateral groundglass infiltrates. I suspect pulmonary edema. Rodolfo Layne Jr., MD Laboratory Tests - Abnormals Test 07/03/17 09:40 07/03/17 13:42 07/03/17 14:24 07/03/17 16:04 Neutrophils (%) (Auto) 70.7 % Monocytes (%) (Auto) 8.7 % Prothrombin Time 12.7 SEC D-Dimer Quantitative (PE/DVT) 1.97 MG/L FEU Random Glucose 177 MG/DL Total Creatine Kinase 321 U/L 311 U/L Troponin I 0.90 NG/ML 0.81 NG/ML Salicylates Level LESS THAN 1.7 MG/DL Acetaminophen Level LESS THAN 2.0 MCG/ML B-Type Natriuretic Peptide 467 PG/ML Blood Gas HCO3 28 mmol/L Blood Gas Base Excess 2.7 mmol/L Arterial Blood pH 7.37 Arterial Blood Partial Pressure CO2 48 mmHg Test 07/03/17 21:31 Vital Signs 07/03/17 07/03/17 07/03/17 07/03/17 08:46 09:27 09:27 10:30 Temp 97.8 98.0 Pulse 101 93 90 Resp 26 28 28 B/P (MAP) 120/88 (99) 122/64 (83) Pulse Ox 97 99 98 99 O2 Delivery Nasal Cannula Nasal Cannula Nasal Cannula O2 Flow Rate 2.00 2.00 2.00 07/03/17 07/03/17 07/03/17 07/03/17 12:06 14:06 15:29 18:15 Temp 98.3 Pulse 89 94 93 Resp 28 20 B/P (MAP) 118/62 (80) 128/69 (88) Pulse Ox 98 97 98 O2 Delivery Nasal Cannula Nasal Cannula O2 Flow Rate 2.00 2.00 07/03/17 07/03/17 07/03/17 19:15 19:46 20:06 Temp 98.2 Pulse 98 98 97 Resp 24 B/P (MAP) 125/89 (101) Pulse Ox 97 INTAKE & OUTPUT 07/04/17 07:00 Output Total 1775 ml Balance -1775 ml Physical exam GENERAL: obese male resting in bed. SKIN: Warm and dry. No rashes, lesions HEAD: Normocephalic. AT EYES: No scleral icterus. No injection or drainage. ENT: OP clear. MMM NECK: Supple, trachea midline. No JVD or lymphadenopathy. CARDIOVASCULAR: Regular rate and rhythm without audible murmurs, gallops, or rubs. RESPIRATORY: Breath sounds equal bilaterally. No accessory muscle use. GASTROINTESTINAL: Abdomen soft, non-tender, nondistended. Normal active BS. No rebound, guarding. MUSCULOSKELETAL: No cyanosis, or edema. No calf tenderness. BACK: Nontender without obvious deformity. No CVA tenderness NEURO: Awake and alert. Normal speech CN grossly intact. Assessment Assessment 46yoM admitted with: Chest pain, evaluate for ACS Shortness of breath Elevated troponin Fluid overload- new onset CHF Tobacco dependence Obesity PLAN PLAN Heparin gtt Nitro Statin ASA Cardiology consult Beta alexandre pending UDS Trend CE, ekg Patient seen and examined. Case reviewed and discussed Agree with plan of care as discussed with me and documented in the resident note. Alicia Pritchard MD Jul 03, 2017 22:26
[2017-07-03 22:30] LABS: CHOLESTEROL/ HDL RATIO 6.43 RATIO; HDL CHOLESTEROL 28.9 MG/DL (40.0-60.0); LDL CHOLESTEROL 117 MG/DL (0-99)
[2017-07-03 22:35] LABS: TROPONIN I 0.68 NG/ML (0.02-0.05)
--- NOTE | 2017-07-03 22:53 | EKG ---
Date Performed: 07/03/2017 Time Performed: 09:22:07 PTAGE: 46 years EKG: Sinus rhythm POSSIBLE LEFT ATRIAL ENLARGEMENT MARKED LEFT AXIS DEVIATION ST DEVIATION AND MODERATE T-WAVE ABNORMA LITY, CONSIDER LATERAL ISCHEMIA ABNORMAL ECG Since the prior tracing, there has been no significant c samir DOCTOR: Satinder Hoffmann Interpretating Date/Time 07/03/2017 22:52:45
[2017-07-04] VITALS (23 sets, daily range): BP systolic 100–125; BP diastolic 62–86; PULSE 71–98; RESP 16–24; TEMP 97–98.9; O2SAT 94–100
[2017-07-04 01:48] LABS: HEMATOCRIT 40.2 % (39.0-51.0); HEMOGLOBIN 13.4 GM/DL (13.0-17.0); MEAN CELL VOLUME 85.9 FL (80.0-100.0); MEAN CORPUSCULAR HEMOGLOBIN 28.7 PG (27.0-34.0); MEAN CORPUSCULAR HGB CONC 33.4 % (32.0-36.0); MEAN PLATELET VOLUME 7.7 FL (7.0-11.0); PLATELET COUNT 291 TH/MM3 (150-450); RED BLOOD COUNT 4.68 MIL/MM3 (4.50-5.90)
[2017-07-04 02:20] LABS: BICARBONATE 30.5 MEQ/L (21.0-32.0); C-REACTIVE PROTEIN 1.41 MG/DL (0.00-0.30); CALCIUM 8.5 MG/DL (8.5-10.1); CREATININE 1.03 MG/DL (0.60-1.30)
[2017-07-04 02:38] LABS: TROPONIN I 0.68 NG/ML (0.02-0.05)
[2017-07-04] MEDS: MORPHINE SULFATE 4 MG/ML INJ IV PUSH PRN ×3 (04:53→21:21)
--- NOTE | 2017-07-04 05:32 | MA ---
cc: MIRIAM MARTEL DATE July 03, 2017 DATE OF 12/31/1972 PROCEDURES PERFORMED 1. Left heart catheterization. 2. Selective right and left coronary angiography. 3. Left ventriculogram. INDICATION New-onset heart failure, elevated troponins. APPROACH Right transradial. PROCEDURE DESCRIPTION Consent signed. The patient was brought into the cardiac laboratory technician in a fasting state. Her right wrist was prepped and draped in sterile fashion. Using 1% lidocaine for local anesthesia and a micropuncture kit, a 6-Occitan sheath was inserted into the right radial artery. Antispasmodic cocktail was given, then selective right and left coronary angiography was performed with a JR-4 and JL- 3.5 diagnostic catheters, angiography taken in multiple views. The JR-4 diagnostic catheter was introduced into the ventricle over a wire. This was followed by pressure recordings of the left ventricle and on pull-back. The patient tolerated the procedure well without complication. Estimated blood loss less than 10 cc. Total contrast used 60 cc. The right radial access site was closed with a TR band. RESULTS LEFT VENTRICLE The left ventricular pressure was 106/28 with an LVEDP of 25. The aortic pressure was 113/86 with an mean of 99. There was no gradient upon pullback from the left ventricle to the aorta. The left ventricle with global hypokinesis with estimated ejection fraction of around 25-30%. ANGIOGRAPHY 1. RIGHT CORONARY ARTERY: The right coronary artery is a nondominant artery. It tapers down to a distal posterolateral branch which is small and patent. The right coronary artery has no significant obstructive coronary artery disease. 2. LEFT MAIN: Wide open. Bifurcates to the LAD and the left circumflex artery. 3. LAD: The LAD is a transapical vessel. It is giving off four diagonal vessels, all of which are patent with SHAYY-3 flow and nonobstructive coronary artery disease. The LAD per se is a small vessel and has no significant obstructive CAD. 4. LEFT CIRCUMFLEX ARTERY: Patent and dominant, giving off the PDA. It does have three obtuse marginal vessels all of which are patent with SHAYY-3 flow and nonobstructive coronary artery disease. CONCLUSIONS 1. Nonobstructive coronary artery disease. 2. Nonischemic cardiomyopathy. 3. Depressed LV systolic function and elevated LVEDP. RECOMMENDATIONS The patient to be admitted to the telemetry unit for post-cath care. He should get IV diuresis as well as optimal medical management for systolic heart failure management with Beta-Blockers, ACEi, get 2Decho and Pulmonology consult. Follow up with cardiology upon discharge. MD LEBRON Clark/JESICA /4:15 PM /5:13 AM NICOLE
--- NOTE | 2017-07-04 08:29 | HHI.FPPN ---
Subjective Remarks Pt seen and examined this morning. No acute events overnight. He reports feeling significantly improved since admission. He denies chest pain, abdominal pain. He does feel like his breathing is more labored than usual. He denies prior diagnosis of Asthma, COPD. (Alivia Maya MD R3) Objective Vitals Vital Signs Date Time Temp Pulse Resp B/P (MAP) Pulse Ox O2 Delivery O2 Flow Rate FiO2 07/04/17 07:00 95 07/04/17 07:00 98.4 89 22 117/65 (82) 100 07/04/17 06:00 92 07/04/17 05:00 90 07/04/17 04:46 98.9 96 20 100/67 (78) 96 07/04/17 04:03 88 07/04/17 03:00 88 07/04/17 02:00 94 07/04/17 01:00 92 07/04/17 00:32 97.0 90 20 106/70 (82) 96 07/04/17 00:00 94 07/03/17 23:00 98 07/03/17 23:00 95 104/72 (83) 07/03/17 22:00 92 119/70 (86) 07/03/17 22:00 92 07/03/17 21:00 94 109/65 (80) 94 07/03/17 21:00 94 07/03/17 20:06 97 07/03/17 19:46 98.2 98 24 125/89 (101) 97 07/03/17 19:15 98 07/03/17 18:15 98 Nasal Cannula 2.00 07/03/17 15:29 93 07/03/17 14:06 98.3 94 20 128/69 (88) 97 07/03/17 12:06 89 28 118/62 (80) 98 Nasal Cannula 2.00 07/03/17 10:30 99 Nasal Cannula 2.00 07/03/17 09:27 90 28 98 Nasal Cannula 2.00 07/03/17 09:27 98.0 93 28 122/64 (83) 99 Nasal Cannula 2.00 07/03/17 08:46 97.8 101 26 120/88 (99) 97 I/O 07/03/17 07/03/17 07/03/17 07/04/17 07/04/17 07/04/17 07:00 15:00 23:00 07:00 15:00 23:00 Intake Total 880 ml Output Total 1275 ml 1375 ml Balance -1275 ml -495 ml Intake Oral 880 ml Output Urine Total 1275 ml 1375 ml (Alivia Maya MD R3) Result Diagram: 07/04/1713007/04/17130 Objective Remarks GENERAL: This is a well-nourished, well-developed obese AAM patient, lying in bed SKIN: Cool and dry. Venous stasis dermatitis over bilateral LEs below the knees. HEAD: Atraumatic. Normocephalic. EYES: Extraocular motions intact. No scleral icterus. No injection or drainage. ENT: Nose without bleeding, drainage or septal abnormality. Uvula midline. Airway patent. MMM. NECK: Trachea midline. No lymphadenopathy. Supple, nontender, no meningeal signs. CARDIOVASCULAR: Regular rate and rhythm without murmur, gallop, or rub. RESPIRATORY: Crackles appreciated at lung bases. Upper lung padilla CTAB. No wheezes, rales, or rhonchi. GASTROINTESTINAL: Abdomen Obese, soft, non-tender, distended. Small reducible umbilical hernia. No hepato-splenomegaly, or palpable masses. No guarding. MUSCULOSKELETAL: Extremities without clubbing, cyanosis, or edema. No joint tenderness, effusion, or edema noted. No calf tenderness. NEUROLOGICAL: Awake and alert. Motor and sensory grossly within normal limits. Five out of 5 muscle strength in all muscle groups. Normal speech. 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 Impression: D-dimer 1.57 CTA with No pulmonary embolus. Bilateral pleural effusions and diffuse bilateral ground glass infiltrates. pulmonary edema suspected. Repeat CXR with mild CHF and possible mild loculated pleural effusion on right EKG: POSSIBLE LEFT ATRIAL ENLARGEMENT; MARKED LEFT AXIS DEVIATION; ST DEVIATION AND MODERATE T-WAVE ABNORMALITY, CONSIDER LATERAL ISCHEMIA ABNORMAL ECG Since the prior tracing, there has been no significant change UDS and EtOH neg CBC wnl BMP wnl (glucose 177) Tropnin 0.90 -> 0.81-> 0.68 BNP 467 Total CK 321-> 311-> 253 CK-MB wnl x3 Lipid panel Trig 200 / Chol 186 / LDL 117 / HDL 28.9 1. Atypical CP - ACS r/o - pt risk factors include obesity and smoking hx -Cardiology consulted, appreciate recommendations and intervention -As per EKG above, consider lateral ischemia -As per CXR above, Mild CHF -Morphine 2mg q8h IV PRN -O2 supplemental -Nitroglycerin ointment 0.5inch q3h PRN -ASA 325mg -Consider starting BB in AM (holding due to CHF component and BP in 120s/60s) -Lisinopril 5mg po daily -Coreg 3.125 po BID -Atorvastatin 40mg qhs -ECHO results wnl but with cardiomyopathy -Left heart cath wnl 07/03 -Lasix 40mg IV BID -Lipid panel results as above -Ativan 0.5mg q6h IV PRN -[id number]-->338 2. Dyspnea -Supplemental O2 as above -Duonebs q4h scheduled -Albuterol nebs q4h PRN -Mucinex BID -Pulmonology consulted, appreciate recommendations -Prednisone 30mg po BID 3. Tobacco abuse -Encourage smoking cessation 4. HLD -Atorvastatin 40 qhs as above -Encourage lifestyle changes in weight and diet 5. FEN/GI/PPx: Fluids: PO only; pt fluid overloaded Electrolytes: wnl; will monitor and replete as necessary Nutrition: heart healthy diet; Na restriction 2gm per day GI: Protonix 40mg PO daily PPx: Redose Heparin in AM (Alivia Maya MD R3) Attending Attestation Patient seen and examined. Case reviewed and discussed. Agree with plan of care as discussed with me and documented in the resident note. (Alicia Pritchard MD) Problem List: (1) Acute coronary syndrome ICD Codes: I24.9 - Acute ischemic heart disease, unspecified Status: Acute (2) Shortness of breath ICD Codes: R06.02 - Shortness of breath Status: Acute (3) HLD (hyperlipidemia) ICD Codes: E78.5 - Hyperlipidemia, unspecified (4) Tobacco abuse ICD Codes: Z72.0 - Tobacco use (5) FEN/GI/PPx (Alivia Maya MD R3) Problem Qualifiers (1) HLD (hyperlipidemia): Qualified Codes: E78.2 - Mixed hyperlipidemia Alivia Maya MD R3 Jul 04, 2017 08:29 Alicia Pritchard MD Jul 07, 2017 09:21
[2017-07-04] MEDS: FUROSEMIDE 40 MG/4 ML VIAL IV PUSH SCH ×2 (08:41→18:00)
--- NOTE | 2017-07-04 08:43 | PD.CARD.PN ---
Subjective Subjective Remarks still SOB ECHO pending Objective Medications Current Medications Medications (Trade) Dose Ordered Sig/Elsa Route Start Time Stop Time Status Last Admin (NS Flush) 2 ml BID IV FLUSH 07/03/17 21:00 07/03/17 19:32 (NS Flush) 2 ml UNSCH PRN IV FLUSH 07/03/17 13:45 (Ecotrin Ec) 325 mg DAILY PO 07/04/17 09:00 (Nitroglycerin 2% Oint) 0.5 inch Q6HR PRN TOP 07/03/17 13:45 (Morphine Inj) 2 mg Q2HR PRN IV PUSH 07/03/17 13:45 07/04/17 04:53 (Tylenol) 650 mg Q6H PRN PO 07/03/17 13:45 07/03/17 19:32 (Colace) 100 mg BID PRN PO 07/03/17 13:45 (Zofran Inj) 4 mg Q6H PRN IV PUSH 07/03/17 13:45 (Lipitor) 40 mg HS PO 07/03/17 21:00 07/03/17 19:32 (Ativan Inj) 0.5 mg Q6H PRN IV PUSH 07/03/17 14:00 (Protonix) 40 mg DAILY PO 07/04/17 09:00 (Duoneb Neb) 1 ampule Q4HR WHILE AWAKE NEB NEB 07/04/17 08:00 (Albuterol Neb) 2.5 mg Q4HR NEB PRN NEB 07/03/17 23:45 (Mucinex Er) 600 mg BID PO 07/04/17 09:00 (Lasix Inj) 40 mg BID@ IV PUSH 07/04/17 09:00 07/04/17 08:41 (KCl) 20 meq Q12HR PO 07/04/17 09:00 (Prinivil) 5 mg DAILY PO 07/04/17 09:00 (Lovenox Inj) 40 mg Q24H SQ 07/04/17 09:00 Vital Signs / I&O Vital Signs Date Time Temp Pulse Resp B/P (MAP) Pulse Ox O2 Delivery O2 Flow Rate FiO2 07/04/17 07:00 95 07/04/17 07:00 98.4 89 22 117/65 (82) 100 07/04/17 06:00 92 07/04/17 05:00 90 1/26/18 04:46 98.9 96 20 100/67 (78) 96 07/04/17 04:03 88 07/04/17 03:00 88 07/04/17 02:00 94 07/04/17 01:00 92 07/04/17 00:32 97.0 90 20 106/70 (82) 96 07/04/17 00:00 94 07/03/17 23:00 98 07/03/17 23:00 95 104/72 (83) 07/03/17 22:00 92 119/70 (86) 07/03/17 22:00 92 07/03/17 21:00 94 109/65 (80) 94 07/03/17 21:00 94 07/03/17 20:06 97 07/03/17 19:46 98.2 98 24 125/89 (101) 97 07/03/17 19:15 98 07/03/17 18:15 98 Nasal Cannula 2.00 07/03/17 15:29 93 07/03/17 14:06 98.3 94 20 128/69 (88) 97 07/03/17 12:06 89 28 118/62 (80) 98 Nasal Cannula 2.00 07/03/17 10:30 99 Nasal Cannula 2.00 07/03/17 09:27 90 28 98 Nasal Cannula 2.00 07/03/17 09:27 98.0 93 28 122/64 (83) 99 Nasal Cannula 2.00 07/03/17 08:46 97.8 101 26 120/88 (99) 97 I/O 07/03/17 07/03/17 07/03/17 07/04/17 07/04/17 07/04/17 07:00 15:00 23:00 07:00 15:00 23:00 Intake Total 880 ml Output Total 1275 ml 1375 ml Balance -1275 ml -495 ml Intake Oral 880 ml Output Urine Total 1275 ml 1375 ml Physical Exam GENERAL: Well-nourished, well-developed patient. SKIN: Warm and dry. HEAD: Normocephalic. EYES: No scleral icterus. No injection or drainage. NECK: Supple, trachea midline. No JVD or lymphadenopathy. CARDIOVASCULAR: Regular rate and rhythm without murmurs, gallops, or rubs. RESPIRATORY: Breath sounds equal bilaterally. No accessory muscle use. Bilateral rales GASTROINTESTINAL: Abdomen soft, non-tender, nondistended. EXTREMITIES: No cyanosis, or edema. NEUROLOGICAL: Awake, alert, and oriented x 3. Non-focal. Laboratory Laboratory Tests Test 07/03/17 09:40 07/03/17 13:42 07/03/17 14:24 07/03/17 16:04 White Blood Count 8.8 TH/MM3 Red Blood Count 4.66 MIL/MM3 Hemoglobin 13.8 GM/DL Hematocrit 40.0 % Mean Corpuscular Volume 85.8 FL Mean Corpuscular Hemoglobin 29.6 PG Mean Corpuscular Hemoglobin Concent 34.5 % Red Cell Distribution Width 15.5 % Platelet Count 274 TH/MM3 Mean Platelet Volume 8.1 FL Neutrophils (%) (Auto) 70.7 % Lymphocytes (%) (Auto) 18.6 % Monocytes (%) (Auto) 8.7 % Eosinophils (%) (Auto) 0.8 % Basophils (%) (Auto) 1.2 % Neutrophils # (Auto) 6.2 TH/MM3 Lymphocytes # (Auto) 1.6 TH/MM3 Monocytes # (Auto) 0.8 TH/MM3 Eosinophils # (Auto) 0.1 TH/MM3 Basophils # (Auto) 0.1 TH/MM3 CBC Comment DIFF FINAL Differential Comment Prothrombin Time 12.7 SEC Prothromb Time International Ratio 1.3 RATIO Activated Partial Thromboplast Time 25.8 SEC 27.7 SEC D-Dimer Quantitative (PE/DVT) 1.97 MG/L FEU Blood Urea Nitrogen 10 MG/DL Creatinine 1.02 MG/DL Random Glucose 177 MG/DL Calcium Level 8.7 MG/DL Sodium Level 139 MEQ/L Potassium Level 4.3 MEQ/L Chloride Level 107 MEQ/L Carbon Dioxide Level 27.1 MEQ/L Anion Gap 5 MEQ/L Estimat Glomerular Filtration Rate 95 ML/MIN Total Creatine Kinase 321 U/L 311 U/L Creatine Kinase MB 2.5 NG/ML 2.6 NG/ML Creatine Kinase MB % 0.8 % 0.8 % Troponin I 0.90 NG/ML 0.81 NG/ML Salicylates Level LESS THAN 1.7 MG/DL Acetaminophen Level LESS THAN 2.0 MCG/ML Ethyl Alcohol Level LESS THAN 3 MG/DL Urine Opiates Screen NEG Urine Barbiturates Screen NEG Urine Amphetamines Screen NEG Urine Benzodiazepines Screen NEG Urine Cocaine Screen NEG Urine Cannabinoids Screen NEG B-Type Natriuretic Peptide 467 PG/ML Blood Gas Puncture Site DRAWN IN OR Blood Gas Patient Temperature 98.6 Blood Gas HCO3 28 mmol/L Blood Gas Base Excess 2.7 mmol/L Blood Gas Oxygen Saturation 93 % Arterial Blood pH 7.37 Arterial Blood Partial Pressure CO2 48 mmHg Arterial Blood Partial Pressure O2 84 mmHg Arterial Blood Oxygen Content 17.0 Vol % Arterial Blood Carboxyhemoglobin 1.7 % Arterial Blood Methemoglobin 1.3 % Blood Gas Hemoglobin 13.0 G/DL Test 07/03/17 21:31 07/04/17 01:31 Total Creatine Kinase 253 U/L Creatine Kinase MB 1.7 NG/ML Troponin I 0.68 NG/ML 0.68 NG/ML Triglycerides Level 200 MG/DL Cholesterol Level 186 MG/DL LDL Cholesterol 117 MG/DL HDL Cholesterol 28.9 MG/DL Cholesterol/HDL Ratio 6.43 RATIO Thyroid Stimulating Hormone 3rd Gen 2.320 uIU/ML White Blood Count 10.0 TH/MM3 Red Blood Count 4.68 MIL/MM3 Hemoglobin 13.4 GM/DL Hematocrit 40.2 % Mean Corpuscular Volume 85.9 FL Mean Corpuscular Hemoglobin 28.7 PG Mean Corpuscular Hemoglobin Concent 33.4 % Red Cell Distribution Width 16.0 % Platelet Count 291 TH/MM3 Mean Platelet Volume 7.7 FL Blood Urea Nitrogen 16 MG/DL Creatinine 1.03 MG/DL Random Glucose 198 MG/DL Calcium Level 8.5 MG/DL Sodium Level 139 MEQ/L Potassium Level 3.7 MEQ/L Chloride Level 104 MEQ/L Carbon Dioxide Level 30.5 MEQ/L Anion Gap 5 MEQ/L Estimat Glomerular Filtration Rate 94 ML/MIN C-Reactive Protein 1.41 MG/DL B-Type Natriuretic Peptide 338 PG/ML Imaging Last 24 hours Impressions Chest X-Ray 07/03/17 0991 Signed Impressions: Service Date/Time: June 09:52 - CONCLUSION: Limited evaluation of the lung bases as detailed above. A lateral view the chest would be a better evaluation. No infiltrate or effusion observed. Rodolfo Layne Jr., MD Assessment and Plan Problem List: (1) Shortness of breath ICD Codes: R06.02 - Shortness of breath Status: Acute Plan: 46y/o M with cardiac risk factors that include obesity, smoker presents with elevated troponin and EKG changes in the setting of worsening WOLF and atypical chest pain. NonIschemic CMP. Recommendations: ECHO ASA Coreg 3.125mg PO BID Lisinopril 5mg PO daily Lipitor 20mg PO daily Lipid panel Smoking cessation Pulmonary consult Strict I&O Daily weight Low sodium diet Cont IV diuresis Levi Guerrero MD Jul 04, 2017 08:43
--- NOTE | 2017-07-04 08:54 | EKG ---
Date Performed: 07/03/2017 Time Performed: 20:25:06 PTAGE: 46 years EKG: Sinus rhythm POSSIBLE LEFT ATRIAL ENLARGEMENT LEFT ANTERIOR FASCICULAR BLOCK ST ABNORMALITY, CONSIDER ACUTE INFER IOR AND LATERAL INJURY PATTERN ABNORMAL ECG PREVIOUS TRACING : 07/03/2017 09.22 Compared to previous tracing, ST abnormality is now slightl y more pronounced. DOCTOR: Gen Marrero Interpretating Date/Time 07/04/2017 08:53:48
[2017-07-04] MEDS ORDERED: POTASSIUM CHLORIDE 10 MEQ CONTROLLED RELEASE TAB PO SCH (09:00)
[2017-07-04] MEDS ORDERED: predniSONE 10 MG TAB PO ONE (09:15)
[2017-07-04] MEDS: RESP: ALBUTEROL 2.5 MG/IPRATROPIUM 0.5 MG NEB (SCH) NEB ×4 (09:45→20:50)
[2017-07-04] MEDS: guaiFENesin E.R. 600 MG TAB PO SCH ×2 (09:50→21:09)
[2017-07-04] MEDS: ASPIRIN EC 325 MG TABEC PO SCH (09:50)
[2017-07-04] MEDS: PANTOPRAZOLE SOD 40 MG DELAYED RELEASE TAB PO SCH (09:50)
[2017-07-04] MEDS: LISINOPRIL 5 MG TAB PO SCH (09:51)
[2017-07-04] MEDS: ENOXAPARIN SODIUM 40 MG/0.4 ML SYRINGE SQ SCH (09:51)
[2017-07-04] MEDS: POTASSIUM CHLORIDE 10 MEQ CONTROLLED RELEASE TAB PO SCH ×2 (09:51→21:10)
[2017-07-04] MEDS: SODIUM CHLORIDE 0.9% FLUSH 10 ML FLUSH IV FLUSH SCH ×2 (09:55→21:10)
[2017-07-04 15:43] LABS: HEMOGLOBIN A1C 8.6 % (4.3-6.0)
--- NOTE | 2017-07-04 19:01 | ECHRPT ---
Indication: CHEST PAIN CONCLUSIONS The left ventricular systolic function is severely reduced with an estimated ejection fraction less than 20%. There is global left ventricular dysfunction. Trace mitral valve regurgitation. BP: / HR: Rhythm: Sinus MEASUREMENTS (Male / Female) Normal Values Technical Quality:Good 2D ECHO LV Diastolic Diameter PLAX 5.1 cm 4.2 - 5.9 / 3.9 - 5.3 cm LV Systolic Diameter PLAX 4.7 cm IVS Diastolic Thickness 1.1 cm 0.6 - 1.0 / 0.6 - 0.9 cm LVPW Diastolic Thickness 1.2 cm 0.6 - 1.0 / 0.6 - 0.9 cm LV Relative Wall Thickness 0.5 RV Internal Dim ED PLAX 2.9 cm LVOT Diameter 2.1 cm LA Systolic Diameter LX 3.6 cm 3.0 - 4.0 / 2.7 - 3.8 cm LV Ejection Fraction MOD 4C 17.9 % LV Ejection Fraction 4C AL 18.8 % DOPPLER AV Peak Velocity 107.0 cm/s AV Peak Gradient 4.6 mmHg LVOT Peak Velocity 66.1 cm/s LVOT Peak Gradient 1.7 mmHg AV Area Cont Eq pk 2.1 cm MV Area PHT 5.4 cm Mitral E Point Velocity 124.0 cm/s Mitral A Point Velocity 43.9 cm/s Mitral E to A Ratio 2.8 LV E' Lateral Velocity 4.1 cm/s Mitral E to LV E' Lateral Ratio 30.3 LV E' Septal Velocity 4.3 cm/s Mitral E to LV E' Septal Ratio 28.9 PV Peak Velocity 77.4 cm/s PV Peak Gradient 2.4 mmHg FINDINGS LEFT VENTRICLE The left ventricular systolic function is severely reduced with an estimated ejection fraction less than 20%. Normal left ventricular size. Wall thickness is measured at the upper limits of normal. There is global left ventricular dysfunction. RIGHT VENTRICLE The right ventricular size is normal. The right ventricular systoilc function is mildly decreased. LEFT ATRIUM The left atrial size is upper limits of normal. RIGHT ATRIUM The right atrial size is normal. ATRIAL SEPTUM Normal atrial septal thickness without atrial level shunting by limited color doppler interrogation. AORTA The aortic root and proximal ascending aorta are normal in size on limited imaging. MITRAL VALVE Structurally normal mitral valve. Trace mitral valve regurgitation. No mitral valve stenosis. AORTIC VALVE Trileaflet aortic valve. No aortic valve stenosis or regurgitation. TRICUSPID VALVE Structurally normal tricuspid valve. No tricuspid valve stenosis or regurgitation. PULMONARY VALVE The pulmonary valve is not well visualized. VESSELS The inferior vena cava is normal in size. PERICARDIUM No pericardial effusion. Satinder Hoffmann DO (Electronically Signed) Final Date:04 July 2017 19:01
[2017-07-04] MEDS ORDERED: GLUCAGON 1 MG/ML VIAL OTHER PRN (19:45)
[2017-07-04] MEDS ORDERED: DEXTROSE 50% IN WATER 50 ML VIAL(D50) IV PUSH PRN (19:45)
[2017-07-04] MEDS ORDERED: ATROPINE SULFATE 1 MG/10 ML SYRINGE ONE (20:31)
[2017-07-04] MEDS ORDERED: EPINEPHrine HCL (1:10,000) 1 MG/10 ML SYRINGE ONE (20:31)
[2017-07-04] MEDS: ATORVASTATIN 40 MG TAB PO SCH (21:09)
[2017-07-04] MEDS: BUDESONIDE-FORMOTEROL 160/4.5 MCG INHALER INH SCH (21:10)
[2017-07-04] MEDS: AZITHROMYCIN INJ 500 MG in SODIUM CHLOR 0.9% 250 ML INJ 250 ML IV SCH (21:11)
--- NOTE | 2017-07-04 21:29 | RADRPT ---
EXAM DATE/TIME: 07/04/2017 20:40 [facility] COMPARISON: CHEST PA & LAT, July 03, 2017, 12:19. INDICATIONS : Chest pain, shortness of breath for 1 week MEDICAL HISTORY : None. SURGICAL HISTORY : None. ENCOUNTER: Initial ACUITY: 1 week PAIN SCORE: 5/10 LOCATION: Bilateral chest FINDINGS: There is mild basilar airspace disease. Small pleural effusions. Mild cardiomegaly. CONCLUSION: 1. Mild basilar airspace disease with small pleural effusions. Edema pattern slightly improved from J anuary 25. Cardiomegaly. Jewel Adhikari MD on July 04, 2017 at 21:25 Board Certified Radiologist. This report was verified electronically.
[2017-07-04] MEDS: INSULIN ASPART SUPPLEMENTAL SCALE SQ SCH (23:04)
[2017-07-05] VITALS (23 sets, daily range): BP systolic 96–134; BP diastolic 60–81; PULSE 78–111; RESP 18–24; TEMP 97.6–98.8; O2SAT 93–99
[2017-07-05] MEDS: MORPHINE SULFATE 4 MG/ML INJ IV PUSH PRN ×3 (00:13→21:37)
[2017-07-05] MEDS: RESP: ALBUTEROL 2.5 MG/IPRATROPIUM 0.5 MG NEB (SCH) NEB ×4 (02:44→21:19)
[2017-07-05 06:28] LABS: HEMATOCRIT 38.8 % (39.0-51.0); HEMOGLOBIN 12.8 GM/DL (13.0-17.0); MEAN CELL VOLUME 87.1 FL (80.0-100.0); MEAN CORPUSCULAR HEMOGLOBIN 28.6 PG (27.0-34.0); MEAN CORPUSCULAR HGB CONC 32.8 % (32.0-36.0); MEAN PLATELET VOLUME 8.1 FL (7.0-11.0); PLATELET COUNT 290 TH/MM3 (150-450); RED BLOOD COUNT 4.46 MIL/MM3 (4.50-5.90); RED CELL DISTRIBUTION WIDTH 15.4 % (11.6-17.2); WHITE BLOOD COUNT 14.3 TH/MM3 (4.0-11.0)
[2017-07-05 06:52] LABS: ALBUMIN 2.8 GM/DL (3.4-5.0); ALT (GPT) 51 U/L (12-78); AST (GOT) 19 U/L (15-37); BICARBONATE 32.1 MEQ/L (21.0-32.0); BLOOD UREA NITROGEN 14 MG/DL (7-18); CALCIUM 8.5 MG/DL (8.5-10.1); CHLORIDE 103 MEQ/L (98-107); CREATININE 1.02 MG/DL (0.60-1.30); GLOMERULAR FILTRATION RATE 95 ML/MIN (>89); GLUCOSE,RANDOM 114 MG/DL (74-106); SODIUM (NA) 141 MEQ/L (136-145)
[2017-07-05 06:54] LABS: ALKALINE PHOSPHATASE 112 U/L (45-117); TOTAL BILIRUBIN ADULT 0.4 MG/DL (0.2-1.0); TOTAL PROTEIN 6.8 GM/DL (6.4-8.2)
[2017-07-05] MEDS: INSULIN ASPART SUPPLEMENTAL SCALE SQ SCH ×4 (08:00→21:29)
--- NOTE | 2017-07-05 08:13 | HHI.FPPN ---
Subjective Remarks Mr. Costa is doing better this morning. He was sitting by the side of his bed and was not short of breath at that time but states that he gets short of breath when he walks to the bathroom. We discussed his new diagnosis of diabetes based on his A1c and elevated glucose levels, and we also discussed the results of his echocardiogram. Reemphasized the need for close PCP follow- up. Later in the morning, I received a page from his nurse that he had an 11 beat run of V. tach. I went by to see him again and he was lying in bed, and was asymptomatic at the time of the V. tach. However, he has been having sharp, intermittent chest pain with coughing. I spoke with the road engineer on-call for the [facility] heart group who will stop by to see him and will make further recommendations in light of his recent echo findings. (Eko,Janeth Hope MD R2) Objective Vitals Vital Signs Date Time Temp Pulse Resp B/P (MAP) Pulse Ox O2 Delivery O2 Flow Rate FiO2 07/05/17 06:00 86 07/05/17 05:29 98.3 92 18 115/68 (84) 94 07/05/17 05:00 84 07/05/17 04:00 89 07/05/17 03:00 88 07/05/17 02:00 90 07/05/17 01:00 94 07/05/17 00:19 97.9 98 20 134/80 (98) 94 07/05/17 00:00 99 07/04/17 23:00 98 07/04/17 22:00 92 07/04/17 21:06 98.1 91 16 106/62 (77) 94 07/04/17 21:00 90 07/04/17 21:00 96 07/04/17 20:02 89 07/04/17 19:00 96 07/04/17 18:00 89 07/04/17 17:00 74 07/04/17 16:00 71 07/04/17 15:15 22 07/04/17 15:00 79 07/04/17 15:00 98.3 71 24 125/86 (99) 96 07/04/17 14:00 79 07/04/17 12:00 97.4 76 24 122/76 (91) 98 07/04/17 11:48 95 I/O 07/04/17 07/04/17 07/04/17 07/05/17 07/05/17 07/05/17 07:00 15:00 23:00 07:00 15:00 23:00 Intake Total 880 ml 475 ml 440 ml Output Total 1375 ml 1500 ml 750 ml Balance -495 ml -1025 ml -310 ml Intake Oral 880 ml 475 ml 440 ml Output Urine Total 1375 ml 1500 ml 750 ml (JuvenaloJaneth MD R2) Result Diagram: 07/05/1742907/05/17429 Objective Remarks GENERAL: This is a well-nourished, well-developed obese AAM patient, sitting by the side of his bed SKIN: Cool and dry. Venous stasis dermatitis over bilateral LEs below the knees. HEAD: Atraumatic. Normocephalic. EYES: Extraocular motions intact. No scleral icterus. No injection or drainage. ENT: Nose without bleeding, drainage or septal abnormality. Uvula midline. Airway patent. MMM. NECK: Trachea midline. No lymphadenopathy. Supple, nontender, no meningeal signs. CARDIOVASCULAR: Regular rate and rhythm without murmur, gallop, or rub. RESPIRATORY: Crackles appreciated at lung bases. Upper lung padilla CTAB. No wheezes, rales, or rhonchi. GASTROINTESTINAL: Abdomen Obese, soft, non-tender, distended. Small reducible umbilical hernia. No hepato-splenomegaly, or palpable masses. No guarding. MUSCULOSKELETAL: Extremities without clubbing, cyanosis, or edema. No joint tenderness, effusion, or edema noted. No calf tenderness. NEUROLOGICAL: Awake and alert. Motor and sensory grossly within normal limits. Five out of 5 muscle strength in all muscle groups. Normal speech. 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 2-D echo concerning for severely reduced left ventricular systolic function is with an estimated ejection fraction less than 20% as well as global left ventricular dysfunction. Atypical CP - ACS r/o -Pt risk factors include obesity and smoking hx -Cardiology consulted, appreciate recommendations and intervention -Lateral ischemia per EKG on admission -Mild CHF per chest x-ray on admission -Morphine 2mg q8h IV PRN -O2 supplemental -Nitroglycerin ointment 0.5 q3h PRN -Ativan 0.5mg q6h IV PRN Workup on admission: D-dimer 1.57 CTA with No pulmonary embolus. Bilateral pleural effusions and diffuse bilateral ground glass infiltrates. pulmonary edema suspected. Repeat CXR with mild CHF and possible mild loculated pleural effusion on right EKG: POSSIBLE LEFT ATRIAL ENLARGEMENT; MARKED LEFT AXIS DEVIATION; ST DEVIATION AND MODERATE T-WAVE ABNORMALITY, CONSIDER LATERAL ISCHEMIA ABNORMAL ECG Since the prior tracing, there has been no significant change UDS and EtOH neg CBC wnl BMP wnl (glucose 177) Tropnin 0.90 -> 0.81-> 0.68 BNP 467 Total CK 321-> 311-> 253 CK-MB wnl x3 Lipid panel Trig 200 / Chol 186 / LDL 117 / HDL 28.9 Congestive heart failure/Nonischemic cardiomyopathy 2-D echo concerning for severely reduced left ventricular systolic function is with an estimated ejection fraction less than 20% as well as global left ventricular dysfunction. -Cardiology on board: may need life vest. Will reevaluate -BNP 467(07/03)-->338(07/04)-->321(07/05) -ASA 325mg -Lisinopril 5 mg po daily -Coreg 3.125 po BID -Atorvastatin 40mg qhs -Lasix 40mg IV BID Dypsnea -Supplemental O2 as above -Duonebs q4h scheduled -Albuterol nebs q4h PRN -Tessalon Perrles 200mg TID prn cough -Pulmonology consulted, appreciate recommendations -Prednisone 20mg po BID -Pulmonology on board * -Start azithromycin 500 mg IV daily per pulmonology * -Symbicort 160/4.52 puffs twice a day * -Bedside PFT when clinically stable Diabetes Type II -Newly diagnosed, A1c 8.6 -Accu-Cheks with sliding scale insulin -Will require antidiabetic medication on discharge Tobacco abuse -Encourage smoking cessation HLD -Atorvastatin 40 qhs as above -Encourage lifestyle changes in weight and diet FEN/GI/PPx: Fluids: PO only; pt fluid overloaded Electrolytes: wnl; will monitor and replete as necessary Nutrition: heart healthy diet; Na restriction 2gm per day GI: Protonix 40mg PO daily PPx: Lovenox 40 mg subcutaneous every [address] Pritchard Discharge Planning Possibly in the next 1-2 day (Janeth Ortiz MD R2) Attending Attestation Patient seen and examined. Case reviewed and discussed. Agree with plan of care as discussed with me and documented in the resident note. Spoke extensively with patient about his new diagnosis of DM Also discussed 2D echo results with patient and plan moving forward for lifevest. Patient verbalized his understanding. (Alicia Pritchard MD) Problem List: (1) Acute coronary syndrome ICD Codes: I24.9 - Acute ischemic heart disease, unspecified Status: Acute (2) Shortness of breath ICD Codes: R06.02 - Shortness of breath Status: Acute (3) HLD (hyperlipidemia) ICD Codes: E78.5 - Hyperlipidemia, unspecified (4) Tobacco abuse ICD Codes: Z72.0 - Tobacco use (5) FEN/GI/PPx (Janeth Ortiz MD R2) Problem Qualifiers (1) HLD (hyperlipidemia): Qualified Codes: E78.2 - Mixed hyperlipidemia Janeth Ortiz MD R2 Jul 05, 2017 08:13 Alicia Pritchard MD Jul 07, 2017 09:04
[2017-07-05] MEDS ORDERED: predniSONE 10 MG TAB PO SCH (09:00)
[2017-07-05] MEDS: BUDESONIDE-FORMOTEROL 160/4.5 MCG INHALER INH SCH ×2 (09:31→22:09)
[2017-07-05] MEDS: POTASSIUM CHLORIDE 10 MEQ CONTROLLED RELEASE TAB PO SCH ×2 (09:32→21:28)
[2017-07-05] MEDS: PANTOPRAZOLE SOD 40 MG DELAYED RELEASE TAB PO SCH (09:33)
[2017-07-05] MEDS: FUROSEMIDE 40 MG/4 ML VIAL IV PUSH SCH ×2 (09:33→18:00)
[2017-07-05] MEDS: guaiFENesin E.R. 600 MG TAB PO SCH (09:33)
[2017-07-05] MEDS: ASPIRIN EC 325 MG TABEC PO SCH (09:33)
[2017-07-05] MEDS: predniSONE 10 MG TAB PO SCH ×2 (09:34→21:27)
[2017-07-05] MEDS: LISINOPRIL 5 MG TAB PO SCH (09:34)
[2017-07-05] MEDS: SODIUM CHLORIDE 0.9% FLUSH 10 ML FLUSH IV FLUSH SCH ×2 (09:35→21:27)
[2017-07-05] MEDS: ENOXAPARIN SODIUM 40 MG/0.4 ML SYRINGE SQ SCH (09:35)
--- NOTE | 2017-07-05 11:25 | MB ---
cc: Apollo DODSON M.D. DATE OF CONSULTATION: 07/05/2017. REASON FOR CONSULTATION: Respiratory distress and hypoxia. HISTORY OF PRESENT ILLNESS: This is a 46-year-old obese -[place] male with a history of hypertension and history of shortness of breath with leg swelling who was admitted via the emergency room since his dyspnea was worse and he could not ambulate much and was complaining of some leg edema as well. The patient had some pains along the upper chest and shoulders and had some pleuritic chest pain as well and was coughing quite severely and complained of headaches and denied fevers or chills, night sweats and thus was admitted. His chest CT done in the emergency room showed evidence of pulmonary edema with pleural effusions consistent with possible heart failure. The patient has been bringing up whitish mucus and he had complained of some wheezing as well. PAST MEDICAL HISTORY: The patient's past history has included: 1. History of hypertension. Denies any other known history and no history of surgery. PAST SURGICAL HISTORY: No history of surgery. ALLERGIES: None listed. FAMILY HISTORY: Family history is significant for hypertension and his mother of COPD and was a smoker. REVIEW OF SYSTEMS: The patient is overweight. He has postnasal drip, cough, wheezing and denies abdominal pains. Denies urinary symptoms. Denies leg or calf muscle pains. He has some arthritis in his extremities. HABITS: The patient smoked one to two packs per day for over 30 years and alcohol use minimal. PHYSICAL EXAMINATION: GENERAL: This is a moderately obese middle-aged man who is anxious and dyspneic. VITAL SIGNS: Blood pressure 120/60, pulse 90, respirations 22, temperature 98.2. HEAD, EYES, EARS, NOSE, THROAT: Head normocephalic. Pupils are reactive. Tongue moist. Throat was clear. NECK: The neck is supple. No venous distension. No thyromegaly or lymphadenopathy. CHEST: Equal movements with percussion note resonant throughout. Crackles heard at the lung bases with occasional wheezes in the upper lung padilla. HEART: The heart sounds are regular S1-S2 with no definite murmur. No S3. ABDOMEN: The abdomen is soft, obese without masses. No organomegaly or tenderness. Bowel sounds are active. EXTREMITIES: Decreased pulses. NEUROLOGIC: Reflexes are 1+ with no gross motor deficits. Cranial nerves grossly intact. RECTAL: Exam is deferred. SKIN: No lesions observed. IMPRESSION: 1. Pulmonary edema with pleural effusions. 2. COPD with chronic bronchitis and acute exacerbation. 3. Hypertension. 4. Cardiomyopathy. 5. Hyperlipidemia. PLAN: 1. The patient has been counseled about quitting cigarette smoking. 2. Nebulized DuoNeb solution added four times a day and PRN. 3. Symbicort 160/4.5 two puffs twice a day. 4. Prednisone to be tapered down to 20 milligrams twice a day. 5. We will also add Zithromax 500 milligrams IV daily for exacerbation of bronchitis. 6. Cardiac evaluation is in progress for coronary syndrome and echocardiogram was noted. 7. The patient will also have a pulmonary function study when he is clinically stable. 8. Follow up chest x-ray to be done this week. 9. Oxygen supplementation at 2 liters nasal cannula. 10. Diuretic therapy will be continued at 40 milligrams Lasix twice a day. 11. Potassium supplementation. Thank you Dr. Pritchard for this consultation. MD ODILON Chris/CHAN /8:05 PM /11:06 AM
--- NOTE | 2017-07-05 11:33 | RADRPT ---
EXAM DATE/TIME: 07/05/2017 11:03 [facility] COMPARISON: CHEST SINGLE AP, July 03, 2017, 9:52. INDICATIONS : Chest pain. MEDICAL HISTORY : None. SURGICAL HISTORY : None. ENCOUNTER: Subsequent ACUITY: 4 - 6 days PAIN SCORE: 5/10 LOCATION: Bilateral chest FINDINGS: Upright portable view of the chest demonstrate stable appearance of cardiomegaly, cephalization of pu lmonary vasculature and bilateral basilar airspace opacities. CONCLUSION: Stable exam. Findings consistent with congestive heart failure and pulmonary edema. Juliana Nye MD on July 05, 2017 at 11:30 Board Certified Radiologist. This report was verified electronically.
[2017-07-05] MEDS: RESP: ALBUTEROL 2.5 MG/3 ML NEB (PRN) NEB (14:17)
[2017-07-05] MEDS: BENZONATATE 100 MG CAP PO PRN (14:28)
[2017-07-05 15:10] LABS: MAGNESIUM 2.2 MG/DL (1.5-2.5); PHOSPHORUS 3.1 MG/DL (2.5-4.9)
--- NOTE | 2017-07-05 18:15 | PD.CARD.PN ---
Subjective Subjective Remarks Follow up for Dr. Adhikari No chest pain, SOB better Objective Medications Current Medications Medications (Trade) Dose Ordered Sig/Elsa Route Start Time Stop Time Status Last Admin (NS Flush) 2 ml BID IV FLUSH 07/03/17 21:00 07/05/17 09:35 (NS Flush) 2 ml UNSCH PRN IV FLUSH 07/03/17 13:45 (Ecotrin Ec) 325 mg DAILY PO 07/04/17 09:00 07/05/17 09:33 (Nitroglycerin 2% Oint) 0.5 inch Q6HR PRN TOP 07/03/17 13:45 (Morphine Inj) 2 mg Q2HR PRN IV PUSH 07/03/17 13:45 07/05/17 14:27 (Tylenol) 650 mg Q6H PRN PO 07/03/17 13:45 07/03/17 19:32 (Colace) 100 mg BID PRN PO 07/03/17 13:45 (Zofran Inj) 4 mg Q6H PRN IV PUSH 07/03/17 13:45 (Lipitor) 40 mg HS PO 07/03/17 21:00 07/04/17 21:09 (Ativan Inj) 0.5 mg Q6H PRN IV PUSH 07/03/17 14:00 07/05/17 09:44 (Protonix) 40 mg DAILY PO 07/04/17 09:00 07/05/17 09:33 (Albuterol Neb) 2.5 mg Q4HR NEB PRN NEB 07/03/17 23:45 07/05/17 14:17 (Lasix Inj) 40 mg BID@ IV PUSH 07/04/17 09:00 07/05/17 09:33 (KCl) 20 meq Q12HR PO 07/04/17 09:00 07/05/17 09:32 (Prinivil) 5 mg DAILY PO 07/04/17 09:00 07/05/17 09:34 (Lovenox Inj) 40 mg Q24H SQ 07/04/17 09:00 07/05/17 09:35 (D50w (Vial) Inj) 50 ml UNSCH PRN IV PUSH 07/04/17 19:45 (Glucagon Inj) 1 mg UNSCH PRN OTHER 07/04/17 19:45 (NovoLOG SUPPLEMENTAL SCALE) 1 ACHS SLIDING SCALE SQ 07/04/17 21:00 07/05/17 12:00 (Deltasone) 20 mg BID PO 07/05/17 09:00 07/05/17 09:34 (Duoneb Neb) 1 ampule Q6HR NEB NEB 07/04/17 22:00 07/05/17 10:00 (Symbicort 160-4.5 Mcg Inh) 2 puff Q12HR INH 07/04/17 21:00 07/05/17 09:31 Azithromycin 500 mg/Sodium Chloride 250 ml @ 250 mls/hr Q24H IV 07/04/17 20:00 07/04/17 21:11 (Tessalon) 200 mg TID PRN PO 07/05/17 11:00 07/05/17 14:28 Vital Signs / I&O Vital Signs Date Time Temp Pulse Resp B/P (MAP) Pulse Ox O2 Delivery O2 Flow Rate FiO2 07/05/17 13:34 85 07/05/17 11:13 111 07/05/17 11:13 98.0 99 20 102/62 (75) 95 07/05/17 10:32 93 07/05/17 09:00 90 07/05/17 08:13 97.6 90 24 101/71 (81) 93 07/05/17 06:00 86 07/05/17 05:29 98.3 92 18 115/68 (84) 94 07/05/17 05:00 84 07/05/17 04:00 89 07/05/17 03:00 88 07/05/17 02:00 90 07/05/17 01:00 94 07/05/17 00:19 97.9 98 20 134/80 (98) 94 07/05/17 00:00 99 07/04/17 23:00 98 07/04/17 22:00 92 07/04/17 21:06 98.1 91 16 106/62 (77) 94 07/04/17 21:00 90 07/04/17 21:00 96 07/04/17 20:02 89 07/04/17 19:00 96 I/O 07/04/17 07/04/17 07/04/17 07/05/17 07/05/17 07/05/17 07:00 15:00 23:00 07:00 15:00 23:00 Intake Total 880 ml 475 ml 440 ml Output Total 1375 ml 1500 ml 750 ml Balance -495 ml -1025 ml -310 ml Intake Oral 880 ml 475 ml 440 ml Output Urine Total 1375 ml 1500 ml 750 ml Physical Exam GENERAL: NAD, AAOx3 SKIN: Warm and dry. HEAD: Atraumatic. Normocephalic. EYES: Pupils equal and round. No scleral icterus. No injection or drainage. ENT: No nasal bleeding or discharge. Mucous membranes pink and moist. NECK: Trachea midline. No JVD. CARDIOVASCULAR: Regular rate and rhythm. RESPIRATORY: No accessory muscle use. Clear to auscultation. Breath sounds equal bilaterally. GASTROINTESTINAL: Abdomen soft, non-tender, nondistended. Hepatic and splenic margins not palpable. MUSCULOSKELETAL: Extremities without clubbing, cyanosis, or edema. No obvious deformities. Right radial no hematoma, neurovascularly intact distally NEUROLOGICAL: Awake and alert. No obvious cranial nerve deficits. Motor grossly within normal limits. Five out of 5 muscle strength in the arms and legs. Normal speech. PSYCHIATRIC: Appropriate mood and affect; insight and judgment normal. Laboratory Laboratory Tests Test 07/05/17 04:30 07/05/17 12:29 07/05/17 14:20 White Blood Count 14.3 TH/MM3 Red Blood Count 4.46 MIL/MM3 Hemoglobin 12.8 GM/DL Hematocrit 38.8 % Mean Corpuscular Volume 87.1 FL Mean Corpuscular Hemoglobin 28.6 PG Mean Corpuscular Hemoglobin Concent 32.8 % Red Cell Distribution Width 15.4 % Platelet Count 290 TH/MM3 Mean Platelet Volume 8.1 FL Blood Urea Nitrogen 14 MG/DL Creatinine 1.02 MG/DL Random Glucose 114 MG/DL Total Protein 6.8 GM/DL Albumin 2.8 GM/DL Calcium Level 8.5 MG/DL Alkaline Phosphatase 112 U/L Aspartate Amino Transf (AST/SGOT) 19 U/L Alanine Aminotransferase (ALT/SGPT) 51 U/L Total Bilirubin 0.4 MG/DL Sodium Level 141 MEQ/L Potassium Level 4.1 MEQ/L Chloride Level 103 MEQ/L Carbon Dioxide Level 32.1 MEQ/L Anion Gap 6 MEQ/L Estimat Glomerular Filtration Rate 95 ML/MIN B-Type Natriuretic Peptide 321 PG/ML Troponin I 0.29 NG/ML Phosphorus Level 3.1 MG/DL Magnesium Level 2.2 MG/DL Imaging Last 24 hours Impressions Chest X-Ray 07/05/17 0000 Signed Impressions: Service Date/Time: Wednesday, July 05, 2017 11:03 - CONCLUSION: Stable exam. Findings consistent with congestive heart failure and pulmonary edema. Juliana Nye MD Assessment and Plan Problem List: (1) Shortness of breath ICD Codes: R06.02 - Shortness of breath Status: Acute (2) Elevated troponin ICD Codes: R74.8 - Abnormal levels of other serum enzymes (3) NICM (nonischemic cardiomyopathy) ICD Codes: I42.8 - Other cardiomyopathies (4) Tobacco abuse ICD Codes: Z72.0 - Tobacco use Assessment and Plan 1) NICM, EF ~20% Con't ASA/Lipitor/Lisinopril Add Coreg 2) Will apply for Life[facility] due to cardiomyopathy 3) Repeat echo in 3 months, if EF low then consider ICD 4) Spoke to him about tobacco cessation for greater than 3 mins 5) No further cardiovascular work up, stable for discharge Satinder Hoffmann DO Jul 05, 2017 18:15
[2017-07-05] MEDS ORDERED: DEFIB EXTERNAL (18:17)
[2017-07-05] MEDS: AZITHROMYCIN INJ 500 MG in SODIUM CHLOR 0.9% 250 ML INJ 250 ML IV SCH (21:25)
[2017-07-05] MEDS: CARVEDILOL 3.125 MG TAB PO SCH (21:27)
[2017-07-05] MEDS: ATORVASTATIN 40 MG TAB PO SCH (21:28)
[2017-07-06] VITALS (28 sets, daily range): BP systolic 106–121; BP diastolic 64–82; PULSE 80–95; RESP 18–20; TEMP 98.2–98.9; O2SAT 95–98
[2017-07-06] MEDS: RESP: ALBUTEROL 2.5 MG/IPRATROPIUM 0.5 MG NEB (SCH) NEB ×4 (03:37→21:34)
[2017-07-06] MEDS: MORPHINE SULFATE 4 MG/ML INJ IV PUSH PRN (03:55)
[2017-07-06] MEDS ORDERED: CARV3.125 PO (07:58)
[2017-07-06] MEDS ORDERED: ASPI81 CHEW (07:58)
[2017-07-06] MEDS ORDERED: FURO1TAB60 PO (07:58)
[2017-07-06] MEDS ORDERED: KLOR10TA PO (07:58)
[2017-07-06] MEDS ORDERED: LISI-519 PO (07:58)
[2017-07-06] MEDS ORDERED: ATOR40TA16 PO (07:58)
[2017-07-06] MEDS ORDERED: Albuterol-Ipratropium Neb NEB (07:58)
[2017-07-06] MEDS: INSULIN ASPART SUPPLEMENTAL SCALE SQ SCH ×4 (08:00→21:49)
[2017-07-06] MEDS: BUDESONIDE-FORMOTEROL 160/4.5 MCG INHALER INH SCH ×2 (08:40→21:45)
[2017-07-06] MEDS: FUROSEMIDE 40 MG/4 ML VIAL IV PUSH SCH ×2 (08:41→18:29)
[2017-07-06] MEDS: POTASSIUM CHLORIDE 10 MEQ CONTROLLED RELEASE TAB PO SCH ×2 (08:41→21:48)
[2017-07-06] MEDS: LISINOPRIL 5 MG TAB PO SCH (08:41)
[2017-07-06] MEDS: CARVEDILOL 3.125 MG TAB PO SCH ×2 (08:42→21:47)
[2017-07-06] MEDS: PANTOPRAZOLE SOD 40 MG DELAYED RELEASE TAB PO SCH (08:42)
[2017-07-06] MEDS: SODIUM CHLORIDE 0.9% FLUSH 10 ML FLUSH IV FLUSH SCH ×2 (08:42→21:46)
[2017-07-06] MEDS: ASPIRIN 81 MG CHEW TAB CHEW SCH (08:42)
[2017-07-06] MEDS: predniSONE 10 MG TAB PO SCH ×2 (08:43→21:47)
[2017-07-06] MEDS: ENOXAPARIN SODIUM 40 MG/0.4 ML SYRINGE SQ SCH (08:45)
[2017-07-06] MEDS: ACETAMINOPHEN 325 MG TAB PO PRN (08:55)
[2017-07-06] MEDS ORDERED: NITROGLYCERIN 0.3 MG SL 100 TABS/BTL SL ONE (09:15)
--- NOTE | 2017-07-06 09:43 | RADRPT ---
EXAM DATE/TIME: 07/06/2017 09:20 [facility] COMPARISON: CHEST PA & LAT, July 04, 2017, 20:40. INDICATIONS : Short of Breath MEDICAL HISTORY : None. SURGICAL HISTORY : None. ENCOUNTER: Subsequent ACUITY: 3 days PAIN SCORE: 0/10 LOCATION: chest FINDINGS: Heart size is normal. The lungs are significant for patchy areas of ill-defined airspace density. No evidence of pneumothorax. The pulmonary vasculature appears normal in caliber. Osseous structures are intact. CONCLUSION: Stable lung exam concerning for viral infection/pneumonia or atypical pneumonia. In the appropriate c linical setting this can also be seen in non-cardiogenic pulmonary edema. Juliana Nye MD on July 06, 2017 at 9:39 Board Certified Radiologist. This report was verified electronically.
--- NOTE | 2017-07-06 10:51 | PD.CARD.PN ---
Subjective Subjective Remarks Follow up for Dr. Adhikari No chest pain, SOB better Telemetry yesterday with short run of wide complex tachycardia, patient asymptomatic Objective Medications Current Medications Medications (Trade) Dose Ordered Sig/Elsa Route Start Time Stop Time Status Last Admin (NS Flush) 2 ml BID IV FLUSH 07/03/17 21:00 07/06/17 08:42 (NS Flush) 2 ml UNSCH PRN IV FLUSH 07/03/17 13:45 (Nitroglycerin 2% Oint) 0.5 inch Q6HR PRN TOP 07/03/17 13:45 (Morphine Inj) 2 mg Q2HR PRN IV PUSH 07/03/17 13:45 07/06/17 03:55 (Tylenol) 650 mg Q6H PRN PO 07/03/17 13:45 07/06/17 08:55 (Colace) 100 mg BID PRN PO 07/03/17 13:45 (Zofran Inj) 4 mg Q6H PRN IV PUSH 07/03/17 13:45 (Lipitor) 40 mg HS PO 07/03/17 21:00 07/05/17 21:28 (Ativan Inj) 0.5 mg Q6H PRN IV PUSH 07/03/17 14:00 07/05/17 09:44 (Protonix) 40 mg DAILY PO 07/04/17 09:00 07/06/17 08:42 (Albuterol Neb) 2.5 mg Q4HR NEB PRN NEB 07/03/17 23:45 07/05/17 14:17 (Lasix Inj) 40 mg BID@ IV PUSH 07/04/17 09:00 07/06/17 08:41 (KCl) 20 meq Q12HR PO 07/04/17 09:00 07/06/17 08:41 (Prinivil) 5 mg DAILY PO 07/04/17 09:00 07/06/17 08:41 (Lovenox Inj) 40 mg Q24H SQ 07/04/17 09:00 07/05/17 09:35 (D50w (Vial) Inj) 50 ml UNSCH PRN IV PUSH 07/04/17 19:45 (Glucagon Inj) 1 mg UNSCH PRN OTHER 07/04/17 19:45 (NovoLOG SUPPLEMENTAL SCALE) 1 ACHS SLIDING SCALE SQ 07/04/17 21:00 07/06/17 08:00 (Deltasone) 20 mg BID PO 07/05/17 09:00 07/06/17 08:43 (Duoneb Neb) 1 ampule Q6HR NEB NEB 07/04/17 22:00 07/06/17 10:09 (Symbicort 160-4.5 Mcg Inh) 2 puff Q12HR INH 07/04/17 21:00 07/06/17 08:40 Azithromycin 500 mg/Sodium Chloride 250 ml @ 250 mls/hr Q24H IV 07/04/17 20:00 07/05/17 21:25 (Tessalon) 200 mg TID PRN PO 07/05/17 11:00 07/05/17 14:28 (Coreg) 3.125 mg Q12HR PO 07/05/17 21:00 07/06/17 08:42 (Aspirin Chew) 81 mg DAILY CHEW 07/06/17 09:00 07/06/17 08:42 (Lasix Inj) 40 mg ONCE ONCE IV PUSH 07/06/17 12:00 07/06/17 12:01 Vital Signs / I&O Vital Signs Date Time Temp Pulse Resp B/P (MAP) Pulse Ox O2 Delivery O2 Flow Rate FiO2 07/06/17 10:10 98 Nasal Cannula 2.00 07/06/17 07:00 88 07/06/17 06:00 92 07/06/17 05:00 86 07/06/17 04:00 90 07/06/17 03:45 88 18 106/76 (86) 95 07/06/17 03:00 88 07/06/17 02:00 82 07/06/17 01:00 88 07/06/17 00:00 90 07/05/17 23:00 89 07/05/17 23:00 91 20 96/68 (77) 98 07/05/17 22:00 98 07/05/17 21:00 88 07/05/17 20:00 98.8 99 24 126/81 (96) 99 07/05/17 20:00 94 07/05/17 19:55 Nasal Cannula 2.00 07/05/17 19:00 93 07/05/17 18:00 85 07/05/17 17:00 86 07/05/17 16:00 78 07/05/17 15:00 98.0 18 114/60 (78) 95 07/05/17 13:34 85 07/05/17 11:13 111 07/05/17 11:13 98.0 99 20 102/62 (75) 95 I/O 07/05/17 07/05/17 07/05/17 07/06/17 07/06/17 07/06/17 06:59 14:59 22:59 06:59 14:59 22:59 Intake Total 440 ml 700 ml 400 ml Output Total 750 ml 800 ml 650 ml Balance -310 ml -100 ml -250 ml Intake Oral 440 ml 700 ml 400 ml Output Urine Total 750 ml 800 ml 650 ml Stool Total 0 ml Physical Exam GENERAL: NAD, AAOx3 SKIN: Warm and dry. HEAD: Atraumatic. Normocephalic. EYES: Pupils equal and round. No scleral icterus. No injection or drainage. ENT: No nasal bleeding or discharge. Mucous membranes pink and moist. NECK: Trachea midline. No JVD. CARDIOVASCULAR: Regular rate and rhythm. RESPIRATORY: No accessory muscle use. Clear to auscultation. Breath sounds equal bilaterally. GASTROINTESTINAL: Abdomen soft, non-tender, nondistended. Hepatic and splenic margins not palpable. MUSCULOSKELETAL: Extremities without clubbing, cyanosis, or edema. No obvious deformities. Right radial no hematoma, neurovascularly intact distally NEUROLOGICAL: Awake and alert. No obvious cranial nerve deficits. Motor grossly within normal limits. Five out of 5 muscle strength in the arms and legs. Normal speech. PSYCHIATRIC: Appropriate mood and affect; insight and judgment normal. Laboratory Laboratory Tests Test 07/05/17 12:29 07/05/17 14:20 Troponin I 0.29 NG/ML Phosphorus Level 3.1 MG/DL Magnesium Level 2.2 MG/DL Imaging Last 24 hours Impressions Chest X-Ray 07/06/17 0000 Signed Impressions: Service Date/Time: Thursday, July 06, 2017 09:20 - CONCLUSION: Stable lung exam concerning for viral infection/pneumonia or atypical pneumonia. In the appropriate clinical setting this can also be seen in non-cardiogenic pulmonary edema. Juliana Nye MD Assessment and Plan Problem List: (1) Shortness of breath ICD Codes: R06.02 - Shortness of breath Status: Acute (2) Elevated troponin ICD Codes: R74.8 - Abnormal levels of other serum enzymes (3) NICM (nonischemic cardiomyopathy) ICD Codes: I42.8 - Other cardiomyopathies (4) Tobacco abuse ICD Codes: Z72.0 - Tobacco use Assessment and Plan 1) NICM, EF ~20% Con't ASA/Lipitor/Lisinopril Added Coreg Wide complex tachycardia, asymptomatic, not on BB at the time No further work up at this time, if further episodes will need EP study 2) Will apply for Life[facility] due to cardiomyopathy 3) Repeat echo in 3 months, if EF low then consider ICD 4) Spoke to him about tobacco cessation for greater than 3 mins 5) No further cardiovascular work up, stable for discharge Satinder Hoffmann DO Jul 06, 2017 10:51
[2017-07-06 11:53] LABS: AUTOMATED NEUTROPHIL # 9.3 TH/MM3 (1.8-7.7); BASOPHIL % 0.2 % (0.0-2.0); EOSINOPHIL # 0.1 TH/MM3 (0-0.4); EOSINOPHIL % 0.4 % (0.0-4.0); HEMATOCRIT 40.8 % (39.0-51.0); HEMOGLOBIN 13.3 GM/DL (13.0-17.0); LYMPH % 20.3 % (9.0-44.0); LYMPHOCYTE # 2.6 TH/MM3 (1.0-4.8); MEAN CORPUSCULAR HEMOGLOBIN 28.4 PG (27.0-34.0); MEAN CORPUSCULAR HGB CONC 32.7 % (32.0-36.0); MEAN PLATELET VOLUME 8.1 FL (7.0-11.0); MONO % 7.8 % (0.0-8.0); NEUT % 71.3 % (16.0-70.0); PLATELET COUNT 320 TH/MM3 (150-450); RED BLOOD COUNT 4.69 MIL/MM3 (4.50-5.90); RED CELL DISTRIBUTION WIDTH 15.9 % (11.6-17.2)
[2017-07-06] MEDS ORDERED: FUROSEMIDE 40 MG/4 ML VIAL IV PUSH ONE (12:00)
--- NOTE | 2017-07-06 12:00 | HHI.FPPN ---
Subjective Remarks Mr Costa had no acute events overnight; however, he is complaining about 1 hour of CP this morning worsened by coughing. He declined nitroglycerin ointment indicating it gives him a headache. We will give him sublingual nitroglycerin one time preceded by tylenol to see if this corrects the problem. He has not yet had his morning medications and asked the nurse to get him his morning Lasix dose. He says he does not feel any better today. We discussed his new onset diabetes and that we will start him on an oral glycemic when he discharges. Dr Mejia has signed off for Cardiology; however, he will need a Lifevest for cardiomyopathy and it may take some time for CM to arrange this due to pt being self-pay. Discussed this w/CM. We will wean off of IV morphine in favor of Tylenol 3. We discussed Denies being SOB, N/V/D and DVT pain. (Orlando Pollock MD R1) Objective Vitals Vital Signs Date Time Temp Pulse Resp B/P (MAP) Pulse Ox O2 Delivery O2 Flow Rate FiO2 07/06/17 10:10 98 Nasal Cannula 2.00 07/06/17 08:00 98.2 93 20 118/79 (92) 98 07/06/17 07:00 88 07/06/17 06:00 92 07/06/17 05:00 86 07/06/17 04:00 90 07/06/17 03:45 88 18 106/76 (86) 95 07/06/17 03:00 88 07/06/17 02:00 82 07/06/17 01:00 88 07/06/17 00:00 90 07/05/17 23:00 89 07/05/17 23:00 91 20 96/68 (77) 98 07/05/17 22:00 98 07/05/17 21:00 88 07/05/17 20:00 98.8 99 24 126/81 (96) 99 07/05/17 20:00 94 07/05/17 19:55 Nasal Cannula 2.00 07/05/17 19:00 93 07/05/17 18:00 85 07/05/17 17:00 86 07/05/17 16:00 78 07/05/17 15:00 98.0 18 114/60 (78) 95 07/05/17 13:34 85 I/O 07/05/17 07/05/17 07/05/17 07/06/17 07/06/17 07/06/17 07:00 15:00 23:00 07:00 15:00 23:00 Intake Total 440 ml 700 ml 400 ml Output Total 750 ml 800 ml 650 ml Balance -310 ml -100 ml -250 ml Intake Oral 440 ml 700 ml 400 ml Output Urine Total 750 ml 800 ml 650 ml Stool Total 0 ml (Orlando Pollock MD R1) Result Diagram: 07/05/17 0430 07/05/17 0430 Imaging Last 48 hours Impressions Chest X-Ray 07/06/17 0000 Signed Impressions: Service Date/Time: Thursday, July 06, 2017 09:20 - CONCLUSION: Stable lung exam concerning for viral infection/pneumonia or atypical pneumonia. In the appropriate clinical setting this can also be seen in non-cardiogenic pulmonary edema. Juliana Nye MD Chest X-Ray 07/05/17 0000 Signed Impressions: Service Date/Time: Wednesday, July 05, 2017 11:03 - CONCLUSION: Stable exam. Findings consistent with congestive heart failure and pulmonary edema. Juliana Nye MD Objective Remarks GENERAL: This is a well-nourished, well-developed obese AAM patient, lying in bed SKIN: Cool and dry. Venous stasis dermatitis over bilateral LEs below the knees. HEAD: Atraumatic. Normocephalic. EYES: Extraocular motions intact. No scleral icterus. No injection or drainage. ENT: Nose without bleeding, drainage or septal abnormality. Uvula midline. Airway patent. MMM. NECK: Trachea midline. No lymphadenopathy. Supple, nontender, no meningeal signs. CARDIOVASCULAR: Regular rate and rhythm without murmur, gallop, or rub. RESPIRATORY: Moves air poorly, but are clear bilaterally. No wheezes, rales, or rhonchi. GASTROINTESTINAL: Abdomen obese, soft, non-tender, distended. Small reducible umbilical hernia. No hepato-splenomegaly, or palpable masses. No guarding. MUSCULOSKELETAL: Extremities without clubbing, cyanosis, or edema. No joint tenderness, effusion, or edema noted. No calf tenderness. NEUROLOGICAL: Awake and alert. Motor and sensory grossly within normal limits. Five out of 5 muscle strength in all muscle groups. Normal speech. Medications and IVs Current Medications Medications (Trade) Dose Ordered Sig/Elsa Route Start Time Stop Time Status Last Admin (NS Flush) 2 ml BID IV FLUSH 07/03/17 21:00 07/06/17 08:42 (NS Flush) 2 ml UNSCH PRN IV FLUSH 07/03/17 13:45 (Nitroglycerin 2% Oint) 0.5 inch Q6HR PRN TOP 07/03/17 13:45 (Morphine Inj) 2 mg Q2HR PRN IV PUSH 07/03/17 13:45 07/06/17 03:55 (Tylenol) 650 mg Q6H PRN PO 07/03/17 13:45 07/06/17 08:55 (Colace) 100 mg BID PRN PO 07/03/17 13:45 (Zofran Inj) 4 mg Q6H PRN IV PUSH 07/03/17 13:45 (Lipitor) 40 mg HS PO 07/03/17 21:00 07/05/17 21:28 (Ativan Inj) 0.5 mg Q6H PRN IV PUSH 07/03/17 14:00 07/05/17 09:44 (Protonix) 40 mg DAILY PO 07/04/17 09:00 07/06/17 08:42 (Albuterol Neb) 2.5 mg Q4HR NEB PRN NEB 07/03/17 23:45 07/05/17 14:17 (Lasix Inj) 40 mg BID@ IV PUSH 07/04/17 09:00 07/06/17 08:41 (KCl) 20 meq Q12HR PO 07/04/17 09:00 07/06/17 08:41 (Prinivil) 5 mg DAILY PO 07/04/17 09:00 07/06/17 08:41 (Lovenox Inj) 40 mg Q24H SQ 07/04/17 09:00 07/05/17 09:35 (D50w (Vial) Inj) 50 ml UNSCH PRN IV PUSH 07/04/17 19:45 (Glucagon Inj) 1 mg UNSCH PRN OTHER 07/04/17 19:45 (NovoLOG SUPPLEMENTAL SCALE) 1 ACHS SLIDING SCALE SQ 07/04/17 21:00 07/06/17 08:00 (Deltasone) 20 mg BID PO 07/05/17 09:00 07/06/17 08:43 (Duoneb Neb) 1 ampule Q6HR NEB NEB 07/04/17 22:00 07/06/17 10:09 (Symbicort 160-4.5 Mcg Inh) 2 puff Q12HR INH 07/04/17 21:00 07/06/17 08:40 Azithromycin 500 mg/Sodium Chloride 250 ml @ 250 mls/hr Q24H IV 07/04/17 20:00 07/05/17 21:25 (Tessalon) 200 mg TID PRN PO 07/05/17 11:00 07/05/17 14:28 (Coreg) 3.125 mg Q12HR PO 07/05/17 21:00 07/06/17 08:42 (Aspirin Chew) 81 mg DAILY CHEW 07/06/17 09:00 07/06/17 08:42 (Lasix Inj) 40 mg ONCE ONCE IV PUSH 07/06/17 12:00 07/06/17 12:01 (Orlando Pollock MD R1) Urinary Catheter: No (Orlando Pollock MD R1) Vascular Central Line Catheter: No (Orlando Pollock MD R1) A/P Assessment and Plan 46 YO male with likely Hx of HTN p/w 2 days of CP and 1 week of SOB - ACS r/o empirically; Dr Adhikari took pt to [facility] for left heart cath reported to be wnl, but with concern for non-ischemic cardiomyopathy. 2-D echo concerning for severely reduced left ventricular systolic function is with an estimated ejection fraction less than 20% as well as global left ventricular dysfunction. Dr Mejia has signed off for Cardiology on 06/25; however, Lifevest needs to be arranged for pt. CM notified and may take awhile due to pt being self-pay. CXR 07/06 showing stable exam but with concern for viral/pneumonia infection. Adding Rocephin to existing Azithromycin for empiric CAP treatment. Atypical CP - ACS r/o -Pt risk factors include obesity and smoking hx -Cardiology consulted, appreciate recommendations and intervention -Lateral ischemia per EKG on admission -Mild CHF per chest x-ray on admission -Discontinue Morphine 2mg q8h IV PRN on 07/06 -Start Tylenol 3 w/codeine 1 tab PO q8h -O2 supplemental -Nitroglycerin ointment 0.5 q3h PRN -Ativan 0.5mg q6h IV PRN Workup on admission: D-dimer 1.57 CTA with No pulmonary embolus. Bilateral pleural effusions and diffuse bilateral ground glass infiltrates. pulmonary edema suspected. Repeat CXR with mild CHF and possible mild loculated pleural effusion on right EKG: POSSIBLE LEFT ATRIAL ENLARGEMENT; MARKED LEFT AXIS DEVIATION; ST DEVIATION AND MODERATE T-WAVE ABNORMALITY, CONSIDER LATERAL ISCHEMIA ABNORMAL ECG Since the prior tracing, there has been no significant change UDS and EtOH neg CBC wnl BMP wnl (glucose 177) Tropnin 0.90 -> 0.81-> 0.68 BNP 467 Total CK 321-> 311-> 253 CK-MB wnl x3 Lipid panel Trig 200 / Chol 186 / LDL 117 / HDL 28.9 Congestive heart failure/Nonischemic cardiomyopathy 2-D echo concerning for severely reduced left ventricular systolic function is with an estimated ejection fraction less than 20% as well as global left ventricular dysfunction. -Cardiology on board: per Dr Mejia, will need life vest due to concern for high possibility of sudden cardiac ; CM notified -BNP 467(07/03)-->338(07/04)-->321(07/05)-->347(07/06) -ASA 81mg -Lisinopril 5 mg po daily -Coreg 3.125 po BID -Atorvastatin 40mg qhs -Lasix 40mg IV BID (added extra dose at noon on 07/06) Dypsnea -Supplemental O2 as above -Duonebs q4h scheduled -Albuterol nebs q4h PRN -Tessalon Perrles 200mg TID prn cough -Pulmonology consulted, appreciate recommendations -Prednisone 20mg po BID -Pulmonology on board * -Start azithromycin 500 mg IV daily per pulmonology * -Symbicort 160/4.52 puffs twice a day * -Bedside PFT when clinically stable Diabetes Type II -Newly diagnosed, A1c 8.6 -Accu-Cheks with sliding scale insulin -Plan to discharge starting with Metformin 500mg BID Tobacco abuse -Encourage smoking cessation HLD -Atorvastatin 40 qhs as above -Encourage lifestyle changes in weight and diet FEN/GI/PPx: Fluids: PO only; pt fluid overloaded Electrolytes: wnl; will monitor and replete as necessary Nutrition: heart healthy diet; Na restriction 2gm per day GI: Protonix 40mg PO daily PPx: Lovenox 40 mg subcutaneous every [address] Pritchard Discharge Planning Pending Lifevest; CM notified (Orlando Pollock MD R1) Attending Attestation Patient seen and examined with Dr. Pollock. Case reviewed and discussed Agree with plan of care as discussed with me and documented in the resident note. Patient with some chest pain, atypical, suspect MSK vs PNA. Will initiate treatment for CAP given persistent cough, resp symptoms despite aggressive diuresis Suspect BNP at patient's baseline. (Alicia Pritchard MD) Problem List: (1) Acute coronary syndrome ICD Codes: I24.9 - Acute ischemic heart disease, unspecified Status: Acute (2) Shortness of breath ICD Codes: R06.02 - Shortness of breath Status: Acute (3) HLD (hyperlipidemia) ICD Codes: E78.5 - Hyperlipidemia, unspecified (4) Tobacco abuse ICD Codes: Z72.0 - Tobacco use (5) FEN/GI/PPx (Orlando Pollock MD R1) Problem Qualifiers (1) HLD (hyperlipidemia): Qualified Codes: E78.2 - Mixed hyperlipidemia Orlando Pollock MD R1 Jul 06, 2017 12:00 Alicia Pritchard MD Jul 07, 2017 08:33
[2017-07-06 12:17] LABS: BICARBONATE 31.2 MEQ/L (21.0-32.0); CREATININE 1.16 MG/DL (0.60-1.30)
--- NOTE | 2017-07-06 12:22 | EKG ---
Date Performed: 07/05/2017 Time Performed: 11:21:02 PTAGE: 46 years EKG: Sinus rhythm Possible left anterior fascicular block Lateral T wave changes may be due to myocardial ischemia Abn ormal ECG PREVIOUS TRACING : 07/03/2017 20.25 Since the prior tracing, there has been no significant randolph DOCTOR: Ludin Gibson Interpretating Date/Time 07/06/2017 12:19:59
[2017-07-06] MEDS ORDERED: MORPHINE SULFATE 2 MG/ML INJ IV PUSH PRN (13:00)
[2017-07-06] MEDS: cefTRIAXone INJ 1,000 MG in SODIUM CHLORIDE 0.9% INJ 100 ML IV SCH (14:12)
[2017-07-06] MEDS: ACETAMINOPHEN/CODEINE 300 MG/30 MG TAB PO PRN ×2 (14:18→21:48)
[2017-07-06] MEDS: AZITHROMYCIN INJ 500 MG in SODIUM CHLOR 0.9% 250 ML INJ 250 ML IV SCH (21:46)
[2017-07-06] MEDS: ATORVASTATIN 40 MG TAB PO SCH (21:48)
[2017-07-06] MEDS: BENZONATATE 100 MG CAP PO PRN (23:57)
[2017-07-07] VITALS (30 sets, daily range): BP systolic 91–145; BP diastolic 56–77; PULSE 56–99; RESP 16–20; TEMP 97.9–98.7; O2SAT 93–99
[2017-07-07] MEDS: RESP: ALBUTEROL 2.5 MG/3 ML NEB (PRN) NEB (00:14)
[2017-07-07] MEDS: RESP: ALBUTEROL 2.5 MG/IPRATROPIUM 0.5 MG NEB (SCH) NEB ×4 (03:55→20:44)
[2017-07-07 06:51] LABS: BASOPHIL % 0.3 % (0.0-2.0); EOSINOPHIL % 0.1 % (0.0-4.0); HEMATOCRIT 41.4 % (39.0-51.0); HEMOGLOBIN 13.9 GM/DL (13.0-17.0); LYMPH % 18.7 % (9.0-44.0); LYMPHOCYTE # 2.7 TH/MM3 (1.0-4.8); MEAN CELL VOLUME 86.5 FL (80.0-100.0); MEAN CORPUSCULAR HEMOGLOBIN 29.1 PG (27.0-34.0); MEAN CORPUSCULAR HGB CONC 33.6 % (32.0-36.0); MEAN PLATELET VOLUME 8.2 FL (7.0-11.0); MONO % 5.2 % (0.0-8.0); MONOCYTE # 0.8 TH/MM3 (0-0.9); NEUT % 75.7 % (16.0-70.0); PLATELET COUNT 328 TH/MM3 (150-450); RED BLOOD COUNT 4.78 MIL/MM3 (4.50-5.90); RED CELL DISTRIBUTION WIDTH 15.6 % (11.6-17.2); WHITE BLOOD COUNT 14.6 TH/MM3 (4.0-11.0)
[2017-07-07 07:19] LABS: ALBUMIN 3.2 GM/DL (3.4-5.0); ALKALINE PHOSPHATASE 132 U/L (45-117); ALT (GPT) 67 U/L (12-78); AST (GOT) 23 U/L (15-37); BICARBONATE 31.1 MEQ/L (21.0-32.0); BLOOD UREA NITROGEN 16 MG/DL (7-18); CALCIUM 9.2 MG/DL (8.5-10.1); CHLORIDE 96 MEQ/L (98-107); CREATININE 1.07 MG/DL (0.60-1.30); GLOMERULAR FILTRATION RATE 90 ML/MIN (>89); GLUCOSE,RANDOM 192 MG/DL (74-106); SODIUM (NA) 133 MEQ/L (136-145); TOTAL BILIRUBIN ADULT 0.5 MG/DL (0.2-1.0); TOTAL PROTEIN 7.4 GM/DL (6.4-8.2)
[2017-07-07] MEDS: INSULIN ASPART SUPPLEMENTAL SCALE SQ SCH ×4 (08:00→21:26)
[2017-07-07] MEDS ORDERED: METF500T PO (08:51)
[2017-07-07] MEDS: ASPIRIN 81 MG CHEW TAB CHEW SCH (08:53)
[2017-07-07] MEDS: ENOXAPARIN SODIUM 40 MG/0.4 ML SYRINGE SQ SCH (08:53)
[2017-07-07] MEDS: BUDESONIDE-FORMOTEROL 160/4.5 MCG INHALER INH SCH ×2 (08:53→20:40)
[2017-07-07] MEDS: predniSONE 10 MG TAB PO SCH ×2 (08:53→20:36)
[2017-07-07] MEDS: PANTOPRAZOLE SOD 40 MG DELAYED RELEASE TAB PO SCH (08:53)
[2017-07-07] MEDS: CARVEDILOL 3.125 MG TAB PO SCH ×2 (08:53→20:37)
[2017-07-07] MEDS: SODIUM CHLORIDE 0.9% FLUSH 10 ML FLUSH IV FLUSH SCH ×2 (08:53→20:41)
--- NOTE | 2017-07-07 08:53 | HHI.FPPN ---
Subjective Remarks Patient seen and examined this morning by medical team. No acute events overnight per report. Patient remains mildly tachycardic with other vital signs WNL. This morning he has no complaints and denies any new fevers, chills, SOB, chest pain, NVD, ABD pain, or calf tenderness. Medical team stressed the importance of medication compliance upon discharge and close follow up with cardiology and his PCP for further management. Objective Vitals Vital Signs Date Time Temp Pulse Resp B/P (MAP) Pulse Ox O2 Delivery O2 Flow Rate FiO2 07/07/17 07:01 85 07/07/17 06:00 92 07/07/17 05:15 56 16 145/69 (94) 97 07/07/17 05:00 88 07/07/17 04:00 92 07/07/17 03:00 99 07/07/17 02:00 90 07/07/17 01:00 90 07/07/17 00:00 88 07/06/17 23:00 91 18 108/74 (85) 96 07/06/17 23:00 95 07/06/17 22:00 82 07/06/17 21:00 86 07/06/17 20:45 98.9 93 18 121/82 (95) 97 07/06/17 20:00 94 07/06/17 19:00 87 07/06/17 18:00 82 07/06/17 17:00 88 07/06/17 16:00 80 07/06/17 15:40 98.2 80 18 114/64 (81) 98 07/06/17 15:39 18 07/06/17 15:00 81 07/06/17 14:00 86 07/06/17 13:00 84 07/06/17 12:00 90 07/06/17 11:30 98.4 84 20 118/80 (93) 98 07/06/17 11:00 87 07/06/17 10:10 98 Nasal Cannula 2.00 07/06/17 10:00 20 07/06/17 09:00 90 I/O 07/06/17 07/06/17 07/06/17 07/07/17 07/07/17 07/07/17 07:00 15:00 23:00 07:00 15:00 23:00 Intake Total 400 ml 100 ml 860 ml 400 ml Output Total 650 ml 1425 ml 1150 ml Balance -250 ml 100 ml -565 ml -750 ml Intake Oral 400 ml 860 ml 400 ml IV Total 100 ml Output Urine Total 650 ml 1425 ml 1150 ml Stool Total 0 ml # Bowel Movements 1 0 Result Diagram: 07/07/1744907/07/17449 Objective Remarks GENERAL: Well-nourished, well-developed male lying in bed in no acute distress. SKIN: Warm and dry. No rash. HEENT: Atraumatic, normocephalic with extraocular motions intact. No rhinorrhea. No visible lymphadenopathy or jugulovenous distension appreciated. CARDIOVASCULAR: Regular rate and rhythm without obvious murmurs, gallops, or rubs. 2+ pulses in all four extremities. RESPIRATORY: Clear to auscultation bilaterally with no crackles, wheezes, or rhonchi. Poor air movement overall. No increased work of breathing. GASTROINTESTINAL: Abdomen soft, non-tender, nondistended with positive bowel sounds. No masses appreciated. MUSCULOSKELETAL: No cyanosis or edema. No calf tenderness. Ambulating per report without assistance. NEURO/PSYCH: Afocal. Awake, alert, and oriented x3. Normal speech and judgement. 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 2-D echo concerning for severely reduced left ventricular systolic function is with an estimated ejection fraction less than 20% as well as global left ventricular dysfunction. Dr Mejia has signed off for Cardiology on 07/05; however, Life[facility] needs to be arranged for pt. CM notified and may take awhile due to pt being self-pay. CXR 07/06 showing stable exam but with concern for viral/pneumonia infection. Adding Rocephin to existing Azithromycin for empiric CAP treatment. Atypical CP - ACS r/o -Pt risk factors include obesity and smoking hx -Cardiology consulted, appreciate recommendations and intervention -Lateral ischemia per EKG on admission -Mild CHF per chest x-ray on admission -Discontinue Morphine 2mg q8h IV PRN on 07/06 -Start Tylenol 3 w/codeine 1 tab PO q8h -O2 supplemental -Nitroglycerin ointment 0.5 q3h PRN -Ativan 0.5mg q6h IV PRN Workup on admission: D-dimer 1.57 CTA with No pulmonary embolus. Bilateral pleural effusions and diffuse bilateral ground glass infiltrates. pulmonary edema suspected. Repeat CXR with mild CHF and possible mild loculated pleural effusion on right EKG: POSSIBLE LEFT ATRIAL ENLARGEMENT; MARKED LEFT AXIS DEVIATION; ST DEVIATION AND MODERATE T-WAVE ABNORMALITY, CONSIDER LATERAL ISCHEMIA ABNORMAL ECG Since the prior tracing, there has been no significant change UDS and EtOH neg CBC wnl BMP wnl (glucose 177) Tropnin 0.90 -> 0.81-> 0.68 BNP 467->344 Total CK 321-> 311-> 253 CK-MB wnl x3 Lipid panel Trig 200 / Chol 186 / LDL 117 / HDL 28.9 Congestive heart failure/Nonischemic cardiomyopathy 2-D echo concerning for severely reduced left ventricular systolic function is with an estimated ejection fraction less than 20% as well as global left ventricular dysfunction. -Cardiology on board: per Dr Mejia, will need life vest due to concern for high possibility of sudden cardiac ; CM notified -BNP 467(07/03)-->338(07/04)-->321(07/05)-->347(07/06) -ASA 81mg -Lisinopril 5 mg po daily -Coreg 3.125 po BID -Atorvastatin 40mg qhs -Lasix 40mg IV BID (added extra dose at noon on 07/06) Dypsnea -Supplemental O2 as above -Duonebs q4h scheduled -Albuterol nebs q4h PRN -Tessalon Perrles 200mg TID prn cough -Pulmonology consulted, appreciate recommendations -Prednisone 20mg po BID -Pulmonology on board * -Continue azithromycin 500 mg IV daily and ceftriaxone 1g QD * -Symbicort 160/4.52 puffs twice a day * -PFT to be completed as outpatient * -Plan discharge home on Levaquin for a total of 7 days Diabetes Type II -Newly diagnosed, A1c 8.6 -Accu-Cheks with sliding scale insulin -Plan to discharge starting with Metformin 500mg BID Tobacco abuse -Encourage smoking cessation HLD -Atorvastatin 40 qhs as above -Encourage lifestyle changes in weight and diet FEN/GI/PPx: Fluids: PO only; pt fluid overloaded Electrolytes: wnl; will monitor and replete as necessary Nutrition: heart healthy diet; Na restriction 2gm per day GI: Protonix 40mg PO daily PPx: Lovenox 40 mg subcutaneous every [address] Pritchard Discharge Planning Pending Lifevest; CM notified Problem List: (1) Acute coronary syndrome ICD Codes: I24.9 - Acute ischemic heart disease, unspecified Status: Acute (2) Shortness of breath ICD Codes: R06.02 - Shortness of breath Status: Acute (3) HLD (hyperlipidemia) ICD Codes: E78.5 - Hyperlipidemia, unspecified (4) Tobacco abuse ICD Codes: Z72.0 - Tobacco use (5) FEN/GI/PPx Problem Qualifiers (1) HLD (hyperlipidemia): Qualified Codes: E78.2 - Mixed hyperlipidemia Vinicio Van MD R2 Jul 07, 2017 08:53
[2017-07-07] MEDS: POTASSIUM CHLORIDE 10 MEQ CONTROLLED RELEASE TAB PO SCH ×2 (09:00→20:37)
[2017-07-07] MEDS: LISINOPRIL 5 MG TAB PO SCH (09:00)
[2017-07-07] MEDS: FUROSEMIDE 40 MG/4 ML VIAL IV PUSH SCH ×2 (09:00→17:15)
[2017-07-07] MEDS: BENZONATATE 100 MG CAP PO PRN ×2 (11:47→20:37)
[2017-07-07] MEDS: ACETAMINOPHEN 325 MG TAB PO PRN (11:48)
--- NOTE | 2017-07-07 12:11 | PD.CARD.PN ---
Subjective Subjective Remarks Follow up for Dr. Adhikari No chest pain, SOB better Objective Medications Current Medications Medications (Trade) Dose Ordered Sig/Elsa Route Start Time Stop Time Status Last Admin (NS Flush) 2 ml BID IV FLUSH 07/03/17 21:00 07/07/17 08:53 (NS Flush) 2 ml UNSCH PRN IV FLUSH 07/03/17 13:45 (Nitroglycerin 2% Oint) 0.5 inch Q6HR PRN TOP 07/03/17 13:45 (Tylenol) 650 mg Q6H PRN PO 07/03/17 13:45 07/07/17 11:48 (Colace) 100 mg BID PRN PO 07/03/17 13:45 (Zofran Inj) 4 mg Q6H PRN IV PUSH 07/03/17 13:45 (Lipitor) 40 mg HS PO 07/03/17 21:00 07/06/17 21:48 (Ativan Inj) 0.5 mg Q6H PRN IV PUSH 07/03/17 14:00 07/05/17 09:44 (Protonix) 40 mg DAILY PO 07/04/17 09:00 07/07/17 08:53 (Albuterol Neb) 2.5 mg Q4HR NEB PRN NEB 07/03/17 23:45 07/07/17 00:14 (Lasix Inj) 40 mg BID@ IV PUSH 07/04/17 09:00 07/06/17 18:29 (KCl) 20 meq Q12HR PO 07/04/17 09:00 07/06/17 21:48 (Prinivil) 5 mg DAILY PO 07/04/17 09:00 07/06/17 08:41 (Lovenox Inj) 40 mg Q24H SQ 07/04/17 09:00 07/07/17 08:53 (D50w (Vial) Inj) 50 ml UNSCH PRN IV PUSH 07/04/17 19:45 (Glucagon Inj) 1 mg UNSCH PRN OTHER 07/04/17 19:45 (NovoLOG SUPPLEMENTAL SCALE) 1 ACHS SLIDING SCALE SQ 07/04/17 21:00 07/07/17 08:00 (Deltasone) 20 mg BID PO 07/05/17 09:00 07/07/17 08:53 (Duoneb Neb) 1 ampule Q6HR NEB NEB 07/04/17 22:00 07/07/17 09:27 (Symbicort 160-4.5 Mcg Inh) 2 puff Q12HR INH 07/04/17 21:00 07/07/17 08:53 Azithromycin 500 mg/Sodium Chloride 250 ml @ 250 mls/hr Q24H IV 07/04/17 20:00 07/06/17 21:46 (Tessalon) 200 mg TID PRN PO 07/05/17 11:00 07/07/17 11:47 (Coreg) 3.125 mg Q12HR PO 07/05/17 21:00 07/07/17 08:53 (Aspirin Chew) 81 mg DAILY CHEW 07/06/17 09:00 07/07/17 08:53 (Tylenol-Codeine #3) 1 tab Q8H PRN PO 07/06/17 12:45 07/06/17 21:48 Ceftriaxone Sodium 1000 mg/ Sodium Chloride 100 ml @ 200 mls/hr Q24H IV 07/06/17 14:00 07/06/17 14:12 (Morphine Inj) 2 mg Q6HR PRN IV PUSH 07/06/17 13:00 Future Hold Vital Signs / I&O Vital Signs Date Time Temp Pulse Resp B/P (MAP) Pulse Ox O2 Delivery O2 Flow Rate FiO2 07/07/17 11:45 98.6 89 18 91/56 (68) 96 07/07/17 09:28 93 21 07/07/17 08:45 98.7 87 18 93/62 (72) 96 07/07/17 07:01 85 07/07/17 06:00 92 07/07/17 05:15 56 16 145/69 (94) 97 07/07/17 05:00 88 07/07/17 04:00 92 07/07/17 03:00 99 07/07/17 02:00 90 07/07/17 01:00 90 07/07/17 00:00 88 07/06/17 23:00 91 18 108/74 (85) 96 07/06/17 23:00 95 07/06/17 22:00 82 07/06/17 21:00 86 07/06/17 20:45 98.9 93 18 121/82 (95) 97 07/06/17 20:00 94 1/28/18 19:00 87 07/06/17 18:00 82 07/06/17 17:00 88 07/06/17 16:00 80 07/06/17 15:40 98.2 80 18 114/64 (81) 98 07/06/17 15:39 18 07/06/17 15:00 81 07/06/17 14:00 86 07/06/17 13:00 84 I/O 07/06/17 07/06/17 07/06/17 07/07/17 07/07/17 07/07/17 07:00 15:00 23:00 07:00 15:00 23:00 Intake Total 400 ml 100 ml 860 ml 400 ml Output Total 650 ml 1425 ml 1150 ml Balance -250 ml 100 ml -565 ml -750 ml Intake Oral 400 ml 860 ml 400 ml IV Total 100 ml Output Urine Total 650 ml 1425 ml 1150 ml Stool Total 0 ml # Bowel Movements 1 0 Physical Exam GENERAL: NAD, AAOx3 SKIN: Warm and dry. HEAD: Atraumatic. Normocephalic. EYES: Pupils equal and round. No scleral icterus. No injection or drainage. ENT: No nasal bleeding or discharge. Mucous membranes pink and moist. NECK: Trachea midline. No JVD. CARDIOVASCULAR: Regular rate and rhythm. RESPIRATORY: No accessory muscle use. Clear to auscultation. Breath sounds equal bilaterally. GASTROINTESTINAL: Abdomen soft, non-tender, nondistended. Hepatic and splenic margins not palpable. MUSCULOSKELETAL: Extremities without clubbing, cyanosis, or edema. No obvious deformities. Right radial no hematoma, neurovascularly intact distally NEUROLOGICAL: Awake and alert. No obvious cranial nerve deficits. Motor grossly within normal limits. Five out of 5 muscle strength in the arms and legs. Normal speech. PSYCHIATRIC: Appropriate mood and affect; insight and judgment normal. Laboratory Laboratory Tests Test 07/07/17 04:50 White Blood Count 14.6 TH/MM3 Red Blood Count 4.78 MIL/MM3 Hemoglobin 13.9 GM/DL Hematocrit 41.4 % Mean Corpuscular Volume 86.5 FL Mean Corpuscular Hemoglobin 29.1 PG Mean Corpuscular Hemoglobin Concent 33.6 % Red Cell Distribution Width 15.6 % Platelet Count 328 TH/MM3 Mean Platelet Volume 8.2 FL Neutrophils (%) (Auto) 75.7 % Lymphocytes (%) (Auto) 18.7 % Monocytes (%) (Auto) 5.2 % Eosinophils (%) (Auto) 0.1 % Basophils (%) (Auto) 0.3 % Neutrophils # (Auto) 11.0 TH/MM3 Lymphocytes # (Auto) 2.7 TH/MM3 Monocytes # (Auto) 0.8 TH/MM3 Eosinophils # (Auto) 0.0 TH/MM3 Basophils # (Auto) 0.0 TH/MM3 CBC Comment DIFF FINAL Differential Comment Blood Urea Nitrogen 16 MG/DL Creatinine 1.07 MG/DL Random Glucose 192 MG/DL Total Protein 7.4 GM/DL Albumin 3.2 GM/DL Calcium Level 9.2 MG/DL Alkaline Phosphatase 132 U/L Aspartate Amino Transf (AST/SGOT) 23 U/L Alanine Aminotransferase (ALT/SGPT) 67 U/L Total Bilirubin 0.5 MG/DL Sodium Level 133 MEQ/L Potassium Level 4.8 MEQ/L Chloride Level 96 MEQ/L Carbon Dioxide Level 31.1 MEQ/L Anion Gap 6 MEQ/L Estimat Glomerular Filtration Rate 90 ML/MIN B-Type Natriuretic Peptide 344 PG/ML Assessment and Plan Problem List: (1) Shortness of breath ICD Codes: R06.02 - Shortness of breath Status: Acute (2) Elevated troponin ICD Codes: R74.8 - Abnormal levels of other serum enzymes (3) NICM (nonischemic cardiomyopathy) ICD Codes: I42.8 - Other cardiomyopathies (4) Tobacco abuse ICD Codes: Z72.0 - Tobacco use Assessment and Plan 1) NICM, EF ~20% Con't ASA/Lipitor/Lisinopril Added Coreg Wide complex tachycardia, asymptomatic, not on BB at the time No further work up at this time, if further episodes will need EP study 2) Lifevest today 3) Repeat echo in 3 months, if EF low then consider ICD 4) Spoke to him about tobacco cessation for greater than 3 mins 5) No further cardiovascular work up, stable for discharge 6) Decrease Lasix to 40mg daily PO on discharge Satinder Hoffmann DO Jul 07, 2017 12:11
[2017-07-07] MEDS: cefTRIAXone INJ 1,000 MG in SODIUM CHLORIDE 0.9% INJ 100 ML IV SCH (14:06)
[2017-07-07] MEDS: ACETAMINOPHEN/CODEINE 300 MG/30 MG TAB PO PRN ×2 (15:26→20:37)
--- NOTE | 2017-07-07 19:14 | HHI.PR ---
Subjective Remarks Wants pain meds. Off O2 . SOB better. Still has a cough. CXR is stable. Will have life Vest. Objective Vital Signs Date Time Temp Pulse Resp B/P (MAP) Pulse Ox O2 Delivery O2 Flow Rate FiO2 07/07/17 18:01 87 07/07/17 17:01 84 07/07/17 16:00 86 07/07/17 15:30 96 Room Air 07/07/17 15:30 97.9 87 18 116/77 (90) 96 07/07/17 15:01 85 07/07/17 14:27 96 Room Air 07/07/17 14:01 87 07/07/17 13:00 90 07/07/17 12:00 84 07/07/17 11:45 98.6 89 18 91/56 (68) 96 07/07/17 11:00 85 07/07/17 10:00 91 07/07/17 09:28 93 21 07/07/17 09:00 90 07/07/17 08:45 98.7 87 18 93/62 (72) 96 07/07/17 08:00 92 07/07/17 07:01 85 07/07/17 06:00 92 07/07/17 05:15 56 16 145/69 (94) 97 07/07/17 05:00 88 07/07/17 04:00 92 07/07/17 03:00 99 07/07/17 02:00 90 07/07/17 01:00 90 07/07/17 00:00 88 07/06/17 23:00 91 18 108/74 (85) 96 07/06/17 23:00 95 07/06/17 22:00 82 07/06/17 21:00 86 07/06/17 20:45 98.9 93 18 121/82 (95) 97 07/06/17 20:00 94 I/O 07/06/17 07/06/17 07/06/17 07/07/17 07/07/17 07/07/17 07:00 15:00 23:00 07:00 15:00 23:00 Intake Total 400 ml 100 ml 860 ml 400 ml 600 ml Output Total 650 ml 1425 ml 1150 ml Balance -250 ml 100 ml -565 ml -750 ml 600 ml Intake Oral 400 ml 860 ml 400 ml 600 ml IV Total 100 ml Output Urine Total 650 ml 1425 ml 1150 ml Stool Total 0 ml # Voids 2 # Bowel Movements 1 0 0 Result Diagram: 07/07/1744907/07/17449 Objective Remarks GENERAL: This is a moderately obese middle-aged man who is anxious and dyspneic. HEAD, EYES, EARS, NOSE, THROAT: Head normocephalic. Pupils are reactive. Tongue moist. Throat was clear. NECK: The neck is supple. No venous distension. No thyromegaly or lymphadenopathy. CHEST: Equal movements with percussion note resonant throughout. Crackles heard at the lung bases with occasional wheezes in the upper lung padilla. HEART: The heart sounds are regular S1-S2 with no definite murmur. No S3. ABDOMEN: The abdomen is soft, obese without masses. No organomegaly or tenderness. Bowel sounds are active. EXTREMITIES: Decreased pulses.Mild edema NEUROLOGIC: Reflexes are 1+ with no gross motor deficits. RECTAL: Exam is deferred. SKIN: No lesions observed. Assessment and Plan Assessment and Plan GENERAL: This is a moderately obese middle-aged man who is anxious and dyspneic. IMPRESSION: 1. Pulmonary edema with pleural effusions. 2. COPD with chronic bronchitis and acute exacerbation. 3. Hypertension. 4. Cardiomyopathy. 5. Hyperlipidemia. Plan : 1. D/C IV Zithromax.and Rocephin. 2. PO Zithromax 500 mg for 3 days.Ceftin 500 mg BID X 7 days 3. Duonebs qid. 4. Continue Lasix 40 mg BID 5. PFT in am. 6. Symbicort 160/4.5 mcg , 2 puffs bid 7. Taper Prednisone to 30 mg daily and taper over 3 weeks. Apollo Bustamante MD Jul 07, 2017 19:13
--- NOTE | 2017-07-07 19:33 | EKG ---
Date Performed: 07/06/2017 Time Performed: 09:04:20 PTAGE: 46 years EKG: Sinus rhythm Left anterior fascicular block Possible inferior infarct - age undetermined Lateral T wave changes m ay be due to myocardial ischemia Since previous tracing, no significant change noted Abnormal ECG PREVIOUS TRACING : 07/05/2017 11.21 DOCTOR: Fahad Rivera Interpretating Date/Time 07/07/2017 19:32:55
[2017-07-07] MEDS: ATORVASTATIN 40 MG TAB PO SCH (20:37)
[2017-07-07] MEDS ORDERED: INSULIN DETEMIR 100 UNITS/ML VIAL SQ SCH (21:00)
[2017-07-07] MEDS ORDERED: AZITHROMYCIN 250 MG TAB PO SCH (21:00)
[2017-07-08] VITALS (18 sets, daily range): BP systolic 109–114; BP diastolic 55–81; PULSE 82–92; RESP 18–20; TEMP 98.2–98.7; O2SAT 96–99
[2017-07-08] MEDS: BENZONATATE 100 MG CAP PO PRN (01:11)
[2017-07-08] MEDS: RESP: ALBUTEROL 2.5 MG/IPRATROPIUM 0.5 MG NEB (SCH) NEB ×3 (02:44→15:02)
[2017-07-08] MEDS: ACETAMINOPHEN/CODEINE 300 MG/30 MG TAB PO PRN (05:17)
[2017-07-08 06:40] LABS: HEMATOCRIT 41.3 % (39.0-51.0); HEMOGLOBIN 13.9 GM/DL (13.0-17.0); MEAN CELL VOLUME 86.3 FL (80.0-100.0); MEAN CORPUSCULAR HGB CONC 33.6 % (32.0-36.0); MEAN PLATELET VOLUME 8.1 FL (7.0-11.0); PLATELET COUNT 323 TH/MM3 (150-450); RED BLOOD COUNT 4.78 MIL/MM3 (4.50-5.90); RED CELL DISTRIBUTION WIDTH 15.4 % (11.6-17.2); WHITE BLOOD COUNT 15.2 TH/MM3 (4.0-11.0)
[2017-07-08 07:04] LABS: BICARBONATE 29.9 MEQ/L (21.0-32.0); CALCIUM 9.2 MG/DL (8.5-10.1); CREATININE 1.06 MG/DL (0.60-1.30)
[2017-07-08] MEDS: INSULIN ASPART SUPPLEMENTAL SCALE SQ SCH ×2 (08:04→12:10)
[2017-07-08] MEDS: SODIUM CHLORIDE 0.9% FLUSH 10 ML FLUSH IV FLUSH SCH (08:41)
[2017-07-08] MEDS: ASPIRIN 81 MG CHEW TAB CHEW SCH (08:42)
[2017-07-08] MEDS: predniSONE 10 MG TAB PO SCH (08:43)
[2017-07-08] MEDS: POTASSIUM CHLORIDE 10 MEQ CONTROLLED RELEASE TAB PO SCH (08:44)
[2017-07-08] MEDS: CARVEDILOL 3.125 MG TAB PO SCH (08:45)
[2017-07-08] MEDS: LISINOPRIL 5 MG TAB PO SCH (08:45)
[2017-07-08] MEDS: PANTOPRAZOLE SOD 40 MG DELAYED RELEASE TAB PO SCH (08:45)
[2017-07-08] MEDS: FUROSEMIDE 40 MG/4 ML VIAL IV PUSH SCH (08:46)
[2017-07-08] MEDS: BUDESONIDE-FORMOTEROL 160/4.5 MCG INHALER INH SCH (08:47)
[2017-07-08] MEDS: ACETAMINOPHEN 325 MG TAB PO PRN ×3 (09:41→14:41)
[2017-07-08] MEDS: ENOXAPARIN SODIUM 40 MG/0.4 ML SYRINGE SQ SCH (09:42)
[2017-07-08] MEDS: cefTRIAXone INJ 1,000 MG in SODIUM CHLORIDE 0.9% INJ 100 ML IV SCH (14:26)
[2017-07-08] MEDS ORDERED: AZIT500T2 PO ×2 (14:29→15:38)
[2017-07-08] MEDS ORDERED: CEFU1TAB18 PO ×2 (14:29→15:38)
[2017-07-08] MEDS ORDERED: BENZ100 PO ×2 (14:29→15:38)
[2017-07-08] MEDS ORDERED: PRED10 PO ×2 (14:29→15:38)
--- NOTE | 2017-07-08 14:30 | HHI.DCPOC ---
Discharge Care Plan Diagnosis: (1) Acute coronary syndrome (2) Pneumonia Goals to Promote Your Health * To prevent worsening of your condition and complications * To maintain your health at the optimal level Directions to Meet Your Goals Take your medications as prescribed Follow your dietary instruction Follow activity as directed Keep your appointments as scheduled Take your immunizations and boosters as scheduled If your symptoms worsen call your PCP, if no PCP go to Urgent Care Center or Emergency Room Smoking is Dangerous to Your Health. Avoid second hand smoke Call the 24-hour hour crisis hotline for domestic abuse at Niurka Vera MD R1 Jul 08, 2017 14:30
--- NOTE | 2017-07-08 14:31 | HHI.DS ---
Discharge Summary Admission Date Jul 03, 2017 at 12:27 Admitting Diagnosis ACS,short of breath (1) Acute coronary syndrome ICD Codes: I24.9 - Acute ischemic heart disease, unspecified Status: Acute (2) Shortness of breath ICD Codes: R06.02 - Shortness of breath Status: Acute (3) HLD (hyperlipidemia) ICD Codes: E78.5 - Hyperlipidemia, unspecified (4) Tobacco abuse ICD Codes: Z72.0 - Tobacco use (5) FEN/GI/PPx Brief History Mr Costa is a 46YO male with no PCP and has been told he has HTN in the past presents with a week of SOB progressively getting worse and new onset intermittent chest pain. He reports the dyspnea began a week ago and he thought it would stop or get better but it hasn't. He feels like he he gets out of breath very easy now and feels very anxious because he feels like he is going to . The CP began within the last day or so and pt states the pain is substernal with radiation to his left shoulder and has occurred both at rest and with walking/activity. The pain is 7/10 on pain scale and is worse with inspiration. Coughing makes the pain worse. He has taken no pain medication and , in fact, takes no medications. He denies cold and flu sxs recently. He has a little lower abdominal pain which he can palpate on his belly, but has no N/V. He says he now has a headache too but doesn't have a hx of HAs. Denies hx of AL , but feels like he has a fair amount of stress. He denies drug (and specifically, cocaine) use. Denies visual sxs but indicates he has seen bright red blood in his stool recently. CBC/BMP: 07/08/17 0544 07/08/17 0544 Significant Findings Laboratory Tests Test 07/06/17 11:01 07/07/17 04:50 07/08/17 05:44 White Blood Count 13.0 TH/MM3 (4.0-11.0) 14.6 TH/MM3 (4.0-11.0) 15.2 TH/MM3 (4.0-11.0) Neutrophils (%) (Auto) 71.3 % (16.0-70.0) 75.7 % (16.0-70.0) Neutrophils # (Auto) 9.3 TH/MM3 (1.8-7.7) 11.0 TH/MM3 (1.8-7.7) Monocytes # (Auto) 1.0 TH/MM3 (0-0.9) Random Glucose 302 MG/DL (74-106) 192 MG/DL (74-106) 171 MG/DL (74-106) Sodium Level 134 MEQ/L (136-145) 133 MEQ/L (136-145) 135 MEQ/L (136-145) Chloride Level 97 MEQ/L (98-107) 96 MEQ/L (98-107) Estimat Glomerular Filtration Rate 82 ML/MIN (>89) B-Type Natriuretic Peptide 347 PG/ML (0-100) 344 PG/ML (0-100) Albumin 3.2 GM/DL (3.4-5.0) Alkaline Phosphatase 132 U/L (45-117) PE at Discharge GENERAL: Well-nourished, well-developed male lying in bed in no acute distress. SKIN: Warm and dry. No rash. HEENT: Atraumatic, normocephalic with extraocular motions intact. No rhinorrhea. No visible lymphadenopathy or jugulovenous distension appreciated. CARDIOVASCULAR: Regular rate and rhythm without obvious murmurs, gallops, or rubs. 2+ pulses in all four extremities. RESPIRATORY: Clear to auscultation bilaterally with no crackles, wheezes, or rhonchi. Poor air movement overall. No increased work of breathing. GASTROINTESTINAL: Abdomen soft, non-tender, nondistended with positive bowel sounds. No masses appreciated. MUSCULOSKELETAL: No cyanosis or edema. No calf tenderness. Ambulating per report without assistance. NEURO/PSYCH: Afocal. Awake, alert, and oriented x3. Normal speech and judgement. Niurka Vera MD R1 Jul 08, 2017 14:31
[2017-07-08] MEDS ORDERED: METF500T PO (15:38)
[2017-07-08] MEDS ORDERED: ATOR40TA16 PO (15:38)
[2017-07-08] MEDS ORDERED: LISI-519 PO (15:38)
[2017-07-08] MEDS ORDERED: ASPI81 CHEW (15:38)
[2017-07-08] MEDS ORDERED: CARV3.125 PO (15:38)
[2017-07-08] MEDS ORDERED: KLOR10TA PO (15:38)
[2017-07-08] MEDS ORDERED: FURO1TAB60 PO (15:38)
--- NOTE | 2017-07-08 16:14 | HHI.FPPN ---
Subjective Remarks Patient seen and examined by medical team this morning. No acute events overnight reported. Vital signs remained within normal limits. Patient's main complaint this morning is his continued cough and mild chest pain with his cough. Otherwise he has no complaints and denies any new fevers, chills, shortness of breath, bowel pain, NVD, or calf tenderness. Case management has inform medical team that patient will receive LifeVest for discharge today. Patient educated on LifeVest and importance of compliance with close cardiology follow-up. (Vinicio Van MD R2) Objective Vitals Vital Signs Date Time Temp Pulse Resp B/P (MAP) Pulse Ox O2 Delivery O2 Flow Rate FiO2 07/08/17 15:02 97 21 07/08/17 13:05 98.7 84 18 109/76 (87) 98 07/08/17 13:00 83 07/08/17 12:00 88 07/08/17 11:33 98.2 83 20 114/73 (87) 97 07/08/17 11:00 84 07/08/17 10:00 82 07/08/17 09:00 86 07/08/17 08:28 98.4 86 18 114/81 (92) 96 07/08/17 08:28 96 Room Air 07/08/17 08:00 84 07/08/17 08:00 82 07/08/17 07:51 97 07/08/17 07:00 82 07/08/17 06:00 82 07/08/17 05:00 88 07/08/17 05:00 85 20 112/55 (74) 99 07/08/17 04:00 Room Air 07/08/17 04:00 86 07/08/17 04:00 89 07/08/17 03:00 86 07/08/17 02:00 92 07/08/17 01:00 84 07/07/17 23:00 84 07/07/17 22:00 84 07/07/17 21:00 80 07/07/17 20:46 99 07/07/17 20:00 Room Air 07/07/17 20:00 98.5 87 20 109/72 (84) 98 07/07/17 20:00 92 07/07/17 19:00 86 07/07/17 18:01 87 07/07/17 17:01 84 I/O 07/07/17 07/07/17 07/07/17 07/08/17 07/08/17 07/08/17 07:00 15:00 23:00 07:00 15:00 23:00 Intake Total 400 ml 600 ml 480 ml 480 ml 100 ml Output Total 1150 ml 1000 ml 350 ml Balance -750 ml 600 ml -520 ml 130 ml 100 ml Intake Oral 400 ml 600 ml 480 ml 480 ml IV Total 100 ml Output Urine Total 1150 ml 1000 ml 350 ml # Voids 2 # Bowel Movements 0 0 1 (Vinicio Van MD R2) Result Diagram: 07/08/1754307/08/17543 Objective Remarks GENERAL: Well-nourished, well-developed male lying sitting up in his recliner watching TV in no acute distress. SKIN: Warm and dry. No rash. HEENT: Atraumatic, normocephalic with extraocular motions intact. No rhinorrhea. No visible lymphadenopathy or jugulovenous distension appreciated. CARDIOVASCULAR: Regular rate and rhythm without obvious murmurs, gallops, or rubs. 2+ pulses in all four extremities. RESPIRATORY: Clear to auscultation bilaterally with no crackles, wheezes, or rhonchi. Poor air movement overall. No increased work of breathing. Patient has deep cough throughout interview and exam that is nonproductive without hemoptysis. GASTROINTESTINAL: Abdomen soft, non-tender, nondistended with positive bowel sounds. No masses appreciated. MUSCULOSKELETAL: No cyanosis or edema. No calf tenderness. Ambulating per report without assistance. NEURO/PSYCH: Afocal. Awake, alert, and oriented x3. Normal speech and judgement. (Vinicio Van MD R2) A/P Assessment and Plan 46 YO male with likely Hx of HTN p/w 2 days of CP and 1 week of SOB - ACS r/o empirically; Dr Adhikari took pt to laboratory courier for left heart cath reported to be wnl, but with concern for non-ischemic cardiomyopathy. 2-D echo concerning for severely reduced left ventricular systolic function is with an estimated ejection fraction less than 20% as well as global left ventricular dysfunction. Dr Mejia has signed off for Cardiology on 07/05; however, Lifevest needs to be arranged for pt. CM notified and may take awhile due to pt being self-pay. CXR 07/06 showing stable exam but with concern for viral/pneumonia infection. Adding Rocephin to existing Azithromycin for empiric CAP treatment. Atypical CP - ACS r/o -Pt risk factors include obesity and smoking hx -Cardiology consulted, appreciate recommendations and intervention -Lateral ischemia per EKG on admission -Mild CHF per chest x-ray on admission -Discontinue Morphine 2mg q8h IV PRN on 07/06 -Start Tylenol 3 w/codeine 1 tab PO q8h -O2 supplemental -Nitroglycerin ointment 0.5 q3h PRN -Ativan 0.5mg q6h IV PRN -Patient to be discharged home on aspirin, atorvastatin, carvedilol, Lasix, and lisinopril Workup on admission: D-dimer 1.57 CTA with No pulmonary embolus. Bilateral pleural effusions and diffuse bilateral ground glass infiltrates. pulmonary edema suspected. Repeat CXR with mild CHF and possible mild loculated pleural effusion on right EKG: POSSIBLE LEFT ATRIAL ENLARGEMENT; MARKED LEFT AXIS DEVIATION; ST DEVIATION AND MODERATE T-WAVE ABNORMALITY, CONSIDER LATERAL ISCHEMIA ABNORMAL ECG Since the prior tracing, there has been no significant change UDS and EtOH neg CBC wnl BMP wnl (glucose 177) Tropnin 0.90 -> 0.81-> 0.68 BNP 467->344 Total CK 321-> 311-> 253 CK-MB wnl x3 Lipid panel Trig 200 / Chol 186 / LDL 117 / HDL 28.9 Congestive heart failure/Nonischemic cardiomyopathy 2-D echo concerning for severely reduced left ventricular systolic function is with an estimated ejection fraction less than 20% as well as global left ventricular dysfunction. -Cardiology on board: per Dr Mejia, will need life vest due to concern for high possibility of sudden cardiac ; CM notified -BNP 467(07/03)-->338(07/04)-->321(07/05)-->347(07/06) -ASA 81mg -Lisinopril 5 mg po daily -Coreg 3.125 po BID -Atorvastatin 40mg qhs -Lasix 40mg IV BID (added extra dose at noon on 07/06) -Repeat echocardiogram within 3 months -Patient to be discharged home on aspirin, atorvastatin, carvedilol, Lasix, and lisinopril Dypsnea -Supplemental O2 as above -Duonebs q4h scheduled -Albuterol nebs q4h PRN -Tessalon Perrles 200mg TID prn cough -Pulmonology consulted, appreciate recommendations -Prednisone 20mg po BID -Pulmonology on board * -Continue azithromycin 500 mg IV daily and ceftriaxone 1g QD * -Symbicort 160/4.52 puffs twice a day * -PFT to be completed as outpatient * Patient to follow up with pulmonology with chest x-ray and PFT * -Plan discharge home on azithromycin and Ceftin her antibiotic coverage with prednisone taper starting at 30mg per day tapering to 10mg per day over 3 weeks until discontinuation Diabetes Type II -Newly diagnosed, A1c 8.6 -Accu-Cheks with sliding scale insulin -Plan to discharge starting with Metformin 500mg BID Tobacco abuse -Encourage smoking cessation HLD -Atorvastatin 40 qhs as above -Encourage lifestyle changes in weight and diet -Patient started on atorvastatin 40 mg daily FEN/GI/PPx: Fluids: PO only; pt fluid overloaded Electrolytes: wnl; will monitor and replete as necessary Nutrition: heart healthy diet; Na restriction 2gm per day GI: Protonix 40mg PO daily PPx: Lovenox 40 mg subcutaneous every 24 hours, discontinued on discharge Discussed with Dr. Rincon Discharge Planning Today. (Vinicio Van MD R2) Attending Attestation Patient examined and case discussed with resident physicians. I have read the above note and agree with the assessment/plan as discussed with me. I was involved in all medical decision making for this patient. Norbert Rincon MD (Norbert Rincon MD) Problem List: (1) Acute coronary syndrome ICD Codes: I24.9 - Acute ischemic heart disease, unspecified Status: Acute (2) Shortness of breath ICD Codes: R06.02 - Shortness of breath Status: Acute (3) HLD (hyperlipidemia) ICD Codes: E78.5 - Hyperlipidemia, unspecified (4) Tobacco abuse ICD Codes: Z72.0 - Tobacco use (5) FEN/GI/PPx (Vinicio Van MD R2) Problem Qualifiers (1) HLD (hyperlipidemia): Qualified Codes: E78.2 - Mixed hyperlipidemia Vinicio Van MD R2 Jul 08, 2017 16:14 Norbert Rincon MD Jul 08, 2017 16:29
--- NOTE | 2017-07-08 23:17 | PD.CARD.PN ---
Subjective Subjective Remarks Patient was seen earlier today, late entry No chest pain, SOB better No further wide complex tachycardia since being placed on BB Objective Vital Signs / I&O Vital Signs Date Time Temp Pulse Resp B/P (MAP) Pulse Ox O2 Delivery O2 Flow Rate FiO2 07/08/17 15:02 97 21 07/08/17 13:05 98.7 84 18 109/76 (87) 98 07/08/17 13:00 83 07/08/17 12:00 88 07/08/17 11:33 98.2 83 20 114/73 (87) 97 07/08/17 11:00 84 07/08/17 10:00 82 07/08/17 09:00 86 07/08/17 08:28 98.4 86 18 114/81 (92) 96 07/08/17 08:28 96 Room Air 07/08/17 08:00 84 07/08/17 08:00 82 07/08/17 07:51 97 07/08/17 07:00 82 07/08/17 06:00 82 07/08/17 05:00 88 07/08/17 05:00 85 20 112/55 (74) 99 07/08/17 04:00 Room Air 07/08/17 04:00 86 07/08/17 04:00 89 07/08/17 03:00 86 07/08/17 02:00 92 07/08/17 01:00 84 I/O 07/08/17 07/08/17 07/08/17 07/09/17 07/09/17 07/09/17 07:00 15:00 23:00 07:00 15:00 23:00 Intake Total 480 ml 480 ml 100 ml Output Total 1000 ml 350 ml Balance -520 ml 130 ml 100 ml Intake Oral 480 ml 480 ml IV Total 100 ml Output Urine Total 1000 ml 350 ml # Bowel Movements 1 Physical Exam GENERAL: NAD, AAOx3 SKIN: Warm and dry. HEAD: Atraumatic. Normocephalic. EYES: Pupils equal and round. No scleral icterus. No injection or drainage. ENT: No nasal bleeding or discharge. Mucous membranes pink and moist. NECK: Trachea midline. No JVD. CARDIOVASCULAR: Regular rate and rhythm. RESPIRATORY: No accessory muscle use. Clear to auscultation. Breath sounds equal bilaterally. GASTROINTESTINAL: Abdomen soft, non-tender, nondistended. Hepatic and splenic margins not palpable. MUSCULOSKELETAL: Extremities without clubbing, cyanosis, or edema. No obvious deformities. Right radial no hematoma, neurovascularly intact distally NEUROLOGICAL: Awake and alert. No obvious cranial nerve deficits. Motor grossly within normal limits. Five out of 5 muscle strength in the arms and legs. Normal speech. PSYCHIATRIC: Appropriate mood and affect; insight and judgment normal. Laboratory Laboratory Tests Test 07/08/17 05:44 White Blood Count 15.2 TH/MM3 Red Blood Count 4.78 MIL/MM3 Hemoglobin 13.9 GM/DL Hematocrit 41.3 % Mean Corpuscular Volume 86.3 FL Mean Corpuscular Hemoglobin 29.0 PG Mean Corpuscular Hemoglobin Concent 33.6 % Red Cell Distribution Width 15.4 % Platelet Count 323 TH/MM3 Mean Platelet Volume 8.1 FL Blood Urea Nitrogen 15 MG/DL Creatinine 1.06 MG/DL Random Glucose 171 MG/DL Calcium Level 9.2 MG/DL Sodium Level 135 MEQ/L Potassium Level 4.2 MEQ/L Chloride Level 99 MEQ/L Carbon Dioxide Level 29.9 MEQ/L Anion Gap 6 MEQ/L Estimat Glomerular Filtration Rate 91 ML/MIN Assessment and Plan Problem List: (1) Shortness of breath ICD Codes: R06.02 - Shortness of breath Status: Acute (2) Elevated troponin ICD Codes: R74.8 - Abnormal levels of other serum enzymes (3) NICM (nonischemic cardiomyopathy) ICD Codes: I42.8 - Other cardiomyopathies (4) Tobacco abuse ICD Codes: Z72.0 - Tobacco use Assessment and Plan 1) NICM, EF ~20% Con't ASA/Lipitor/Lisinopril Added Coreg Wide complex tachycardia, asymptomatic, not on BB at the time No further work up at this time, if further episodes will need EP study No further episodes since being placed on BB 2) Lifevest today 3) Repeat echo in 3 months, if EF low then consider ICD 4) Spoke to him about tobacco cessation for greater than 3 mins 5) No further cardiovascular work up, stable for discharge 6) Decrease Lasix to 40mg daily PO on discharge Satinder Hoffmann DO Jul 08, 2017 23:17
== END 2017-07-08 16:11 | disposition home or self-care (01) | DRG 286 ==
LOC: NEPC 08:44 → NEDA 12:27 → HCIN 18:55 → HCIS 07-05 13:14
PROVIDERS: ADMIT Family Medicine; ATTEND Family Medicine
PROC: B2111ZZ Fluoroscopy of Multiple Coronary Arteries using Low Osmolar Contrast (ICD-10-PCS; 2017-07-03)
PROC: B2151ZZ Fluoroscopy of Left Heart using Low Osmolar Contrast (ICD-10-PCS; 2017-07-03)
PROC: 4A023N7 Measurement of Cardiac Sampling and Pressure, Left Heart, Percutaneous Approach (ICD-10-PCS; principal; 2017-07-03 13:45)
DX: I24.9 Acute ischemic heart disease, unspecified (principal); J18.9 Pneumonia, unspecified organism; I50.21 Acute systolic (congestive) heart failure; I42.8 Other cardiomyopathies; Z68.41 Body mass index [BMI] 40.0-44.9, adult; J44.0 Chronic obstructive pulmonary disease with (acute) lower respiratory infection; E11.65 Type 2 diabetes mellitus with hyperglycemia; E78.5 Hyperlipidemia, unspecified; I10 Essential (primary) hypertension; I25.10 Atherosclerotic heart disease of native coronary artery without angina pectoris; E66.9 Obesity, unspecified; F17.210 Nicotine dependence, cigarettes, uncomplicated
CPT/HCPCS: 71045; 71046; 71275; 76937; 80048; 80053; 80061; 80307; 82550; 82552; 82805; 82948; 83036; 83735; 83880; 84100; 84443; 84484; 85025; 85027; 85379; 85610; 85730; 86140; 93005; 93306; 93458; 94060; 94640; 94664; 96372; 96374; C1769; C1893; J0171; J0456; J0461; J0696; J1644; J1650; J1815; J1940; J2060; J2250; J2270; J3010; J7050; J7512; J7613; Q9967

== ENCOUNTER 2018-04-27 02:16 | Inpatient (IN) ==
--- NOTE | 2018-04-27 03:02 | XR ---
EXAM DATE: 04/27/2018 2:56 AM EST AGE/SEX: 47 years / Male INDICATIONS: Skin pain over the site where pacemaker was implanted. CLINICAL DATA: This is the patient's initial encounter. Patient reports that signs and symptoms have been present for 1 day and indicates a pain score of 6/10. MEDICAL/SURGICAL HISTORY: None. Pacemaker. COMPARISON: [facility] [place], CHEST PA & LAT, 07/06/2017. . FINDINGS: Single AP view the chest. Moderate cardiac silhouette enlargement. AICD in place. Lungs are clear. No evidence of pleural effusion or pneumothorax. CONCLUSION: 1. Chronic cardiac silhouette enlargement. 2. Lungs are clear. Electronically signed by: Vishnu John MD 04/27/2018 3:00 AM EST
[2018-04-27 03:04] LABS: Baso # (Auto) 0.1 th/mm3 (0.0-0.2); Baso % (Auto) 1.2 % (0.0-2.0); Eos # (Auto) 0.1 th/mm3 (0.0-0.4); Eos % (Auto) 1.1 % (0.0-4.0); Hemoglobin 14.5 gm/dL (13.0-17.0); Lymph # (Auto) 3.7 th/mm3 (1.0-4.8); Lymph % (Auto) 31.4 % (9.0-44.0); Mean Corpuscular HGB Conc 32.3 % (32.0-36.0); Mean Corpuscular Hemoglobin 27.8 pg (27.0-34.0); Mean Corpuscular Volume 85.9 fL (80.0-100.0); Mean Platelet Volume 8.5 fL (7.0-11.0); Mono # (Auto) 0.9 th/mm3 (0.0-0.9); Mono % (Auto) 7.4 % (0.0-8.0); Neut # (Auto) 6.9 th/mm3 (1.8-7.7); Neut % (Auto) 58.9 % (16.0-70.0); Platelet Count 230 th/mm3 (150-450); Red Blood Count 5.24 mil/mm3 (4.50-5.90); White Blood Count 11.8 th/mm3 (4.0-11.0)
--- NOTE | 2018-04-27 03:05 | ED ---
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 He reports that he additionally noticed that the area where his AICD and pain is along the left side of the chest also appears to be swollen. He denies any injury or trauma to the area he reports that the symptoms began tonight. He additionally reports having chest pain that he reports is mild in the left side of the chest that is worse with taking a deep breath. He reports that the pain is a pressure sensation. He reports having some shortness of breath this evening, however he does report having a history of COPD. He reports that he is down to smoking one half a pack of cigarettes per day. The patient reports a history of congestive heart failure with an ejection fraction of 20% requiring his AICD and pacemaker being placed. He reports that it was placed in February 2018. The patient reports that he ran out of his medications 2 weeks ago. He reports that he is currently homeless and having trouble following up with a primary care physician. On review of systems otherwise, the patient denies having any known recent fevers, cough, congestion, neck pain, abdominal pain, vomiting, diarrhea, urinary symptoms, or neurologic symptoms. Related Data Home Medications Medication Instructions Recorded Confirmed cyclobenzaprine 10 mg PO PRN PRN 04/27/18 04/27/18 ibuprofen 600 mg PO TID PRN 04/27/18 04/27/18 oxycodone 30 mg PO Q4-6H PRN 04/27/18 04/27/18 Allergies Allergy/AdvReac Type Severity Reaction Status Date / Time No Known Allergies Allergy Unknown Uncoded 07/03/17 12:38 Review of Systems ROS: all other systems reviewed are negative [facility] Medical History Medical History Asthma (Acute) COPD (chronic obstructive pulmonary disease) (Acute) Diabetes (Acute) Hx of cardiac pacemaker (Acute) Hypertension (Acute) Surgical History Surgical History Hx of heart surgery (Acute) Social History Social History Substance History: No History of Abuse Smoking Status: Current every day smoker Tobacco Type: Cigarettes Packs Per Day: 0.5 Cigarettes Per Day: 10.0 How Often Do You Have a Drink Containing Alcohol: Never Recent Travel in [facility] within the Last 8 Weeks: No Recent Out of Country Travel within the Last 8 Weeks: No Immunization History Tetanus Immunization: Unsure Exam Const General: cooperative, no acute distress and well developed Nutritional Appearance: well nourished Orientation: alert, awake and oriented x3 HENMT Head: normocephalic and atraumatic Nose: no nasal discharge and no epistaxis Mouth: moist mucous membranes Throat: posterior oropharynx normal and uvula midline Eyes Sclera: normal sclerae Pupils: PERRL Neck Neck: no meningeal signs, trachea midline and no JVD Chest Chest: other Resp Effort & Inspection: no use of accessory muscles Auscultation: clear to auscultation bilaterally Cardio Rate: regular rate Rhythm: regular rhythm Heart Sounds: no murmurs GI Inspection: non-distended Palpation: soft, no hepatosplenomegaly, no guarding, not rigid and nontender Auscultation: normal bowel sounds Back/Spine/Pelvis Back: no CVA tenderness Skin General: dry skin (warm) Neuro General: alert, awake, oriented x3 and other (Grossly nonfocal.) Speech: speech normal Motor: no movement abnormalities noted Extrem General: normal to inspection (2+ pulses in all 4 extremities.), no calf tenderness, no clubbing, no cyanosis and edema (1+ edema bilateral lower extremities with hyperpigmentation consistent with venous stasis changes. He reports that the edema in his legs is better than it has been in the past.) Laterality: bilaterally Psych Mood: congruent mood Affect: normal affect Judgment: judgment good Course Initial Documented Vital Signs Temperature 99.2 F 04/27/18 02:17 Pulse Rate 114 H 04/27/18 02:17 Respiratory Rate 18 04/27/18 02:17 Blood Pressure 132/88 04/27/18 02:17 Pulse Oximetry 92 L 04/27/18 02:17 Last Documented Vital Signs Temperature 99.2 F 04/27/18 02:17 Pulse Rate 91 H 04/27/18 04:26 Respiratory Rate 22 04/27/18 04:26 Blood Pressure 115/59 L 04/27/18 04:26 Pulse Oximetry 99 04/27/18 04:26 Medical Decision Making MDM Narrative Medical decision making narrative: During the course of the patient's emergency department visit, the patient's history, examination, and differential diagnosis were reviewed with the patient. The patient was placed on a athletic monitor with oximetry and frequent blood pressure monitoring. The patient had IV access obtained and blood work sent for analysis. A diagnostic evaluation was started regarding the patient's chest pain. The pacemaker outside dealer sales representative was contacted for interrogation of the patient's AICD. The patient was initially provided aspirin 324 mg p.o. x1, nitroglycerin 1 inch to the chest wall. The patient's diagnostic studies are remarkable for a white count of 11.8, hemoglobin 14.5, platelets 230 with a normal differential , PT 12.9, INR 1.3, PTT 25.5, d-dimer is elevated at 2.14. A CTA to rule out PE was ordered. Chemistry is remarkable for a GFR of 88, glucose 258, calcium 8.0, AST 40, alk phos 122, CPK 164 with 4.3 CK-MB. Troponin I is elevated at 3.50, BNP 480, lipase 72. The patient had a chest xray that shows cardiac silhouette enlargement, lungs are otherwise clear. CTA to rule out PE shows no evidence of pulmonary embolism, right greater than left small pleural effusions, diffuse cardiomegaly, multiple mildly to moderately enlarged mediastinal lymph nodes that are nonspecific, findings were very similar to the prior study of July 03, 2017. The patient was started on heparin as a bolus and a drip per [place] protocol. The patient's pacemaker outside dealer sales representative came in and interrogated the patient's AICD. The patient had a short episode of ventricular tachycardia that was last documented on April 24. None of these episodes have been longer than 10 seconds. The patient's case including history, pertinent physical examination findings, and laboratory studies were discussed with Dr. Mcmahon. It was agreed that the patient would be admitted to the hospitalist service. The patient's results were discussed with the patient, including the plan of care. I explained that further testing and/ or monitoring is indicated based on the patient's history, examination, and/ or laboratory findings. Therefore, I recommended admission for additional evaluation. The patient expressed understanding and was agreeable with this plan. The patient was admitted to the hospital in guarded condition and sent to a bed under the care of the [facility] service. Medical Screen Exam Complete: Yes Emergency Medical Condition: Yes Differential Diagnosis Differential Diagnosis: Acute coronary syndrome, versus pacemaker malfunction, versus AICD fire Medical Records Medical records reviewed: Yes I reviewed the patient's medical records. Lab Data Lab results reviewed: Yes I reviewed the patient's lab results. Result diagrams: 04/27/18 02:45 04/27/18 02:40 Lab Results 04/27/18 04/27/18 04/27/18 Range/Units 02:40 02:45 02:45 WBC 11.8 H (4.0-11.0) th/mm3 RBC 5.24 (4.50-5.90) mil/mm3 Hgb 14.5 (13.0-17.0) gm/dL Hct 45.0 (39.0-51.0) % MCV 85.9 (80.0-100.0) fL MCH 27.8 (27.0-34.0) pg MCHC 32.3 (32.0-36.0) % RDW 17.0 (11.6-17.2) % Plt Count 230 (150-450) th/mm3 MPV 8.5 (7.0-11.0) fL Neut % (Auto) 58.9 (16.0-70.0) % Lymph % (Auto) 31.4 (9.0-44.0) % [place] % (Auto) 7.4 (0.0-8.0) % Eos % (Auto) 1.1 (0.0-4.0) % Baso % (Auto) 1.2 (0.0-2.0) % Neut # (Auto) 6.9 (1.8-7.7) th/mm3 Lymph # (Auto) 3.7 (1.0-4.8) th/mm3 [place] # (Auto) 0.9 (0.0-0.9) th/mm3 Eos # (Auto) 0.1 (0.0-0.4) th/mm3 Baso # (Auto) 0.1 (0.0-0.2) th/mm3 WBC Differential . Differential Comment Auto diff final PT (9.8-11.6) sec INR Ratio APTT (23.4-31.7) sec D-Dimer Quant (PE/DVT) (0.00-0.50) mg/L FEU Sodium 138 (136-145) meq/L Potassium 3.8 (3.5-5.1) meq/L Chloride 101 (98-107) meq/L Carbon Dioxide 27.3 (21.0-32.0) meq/L Anion Gap 10 (5-15) meq/L BUN 13 (7-18) mg/dL Creatinine 1.09 (0.60-1.30) mg/dL Estimated GFR 88 L (>89) mL/min Random Glucose 258 H (74-106) mg/dL Calcium 8.0 L (8.5-10.1) mg/dL Magnesium 1.5 (1.5-2.5) mg/dL Total Bilirubin 0.6 (0.2-1.0) mg/dL AST 40 H (15-37) U/L ALT 45 (12-78) U/L Alkaline Phosphatase 122 H (45-117) U/L Total Creatine Kinase 164 (39-308) U/L CK-MB (CK-2) 4.3 H (0.5-3.6) ng/mL Troponin I 3.50 H* (0.02-0.05) ng/mL B-Natriuretic Peptide 480 H (0-100) pg/mL Total Protein 7.1 (6.4-8.2) g/dL Albumin 2.9 L (3.4-5.0) g/dL Lipase 72 L (73-393) U/L 04/27/18 Range/Units 02:45 WBC (4.0-11.0) th/mm3 RBC (4.50-5.90) mil/mm3 Hgb (13.0-17.0) gm/dL Hct (39.0-51.0) % MCV (80.0-100.0) fL MCH (27.0-34.0) pg MCHC (32.0-36.0) % RDW (11.6-17.2) % Plt Count (150-450) th/mm3 MPV (7.0-11.0) fL Neut % (Auto) (16.0-70.0) % Lymph % (Auto) (9.0-44.0) % [place] % (Auto) (0.0-8.0) % Eos % (Auto) (0.0-4.0) % Baso % (Auto) (0.0-2.0) % Neut # (Auto) (1.8-7.7) th/mm3 Lymph # (Auto) (1.0-4.8) th/mm3 [place] # (Auto) (0.0-0.9) th/mm3 Eos # (Auto) (0.0-0.4) th/mm3 Baso # (Auto) (0.0-0.2) th/mm3 WBC Differential Differential Comment PT 12.9 H (9.8-11.6) sec INR 1.3 Ratio APTT 25.5 (23.4-31.7) sec D-Dimer Quant (PE/DVT) 2.14 H (0.00-0.50) mg/L FEU Sodium (136-145) meq/L Potassium (3.5-5.1) meq/L Chloride (98-107) meq/L Carbon Dioxide (21.0-32.0) meq/L Anion Gap (5-15) meq/L BUN (7-18) mg/dL Creatinine (0.60-1.30) mg/dL Estimated GFR (>89) mL/min Random Glucose (74-106) mg/dL Calcium (8.5-10.1) mg/dL Magnesium (1.5-2.5) mg/dL Total Bilirubin (0.2-1.0) mg/dL AST (15-37) U/L ALT (12-78) U/L Alkaline Phosphatase (45-117) U/L Total Creatine Kinase (39-308) U/L CK-MB (CK-2) (0.5-3.6) ng/mL Troponin I (0.02-0.05) ng/mL B-Natriuretic Peptide (0-100) pg/mL Total Protein (6.4-8.2) g/dL Albumin (3.4-5.0) g/dL Lipase (73-393) U/L Imaging Data Radiologist's impression: Chest X-Ray 04/27/18 02:41 CONCLUSION: 1. Chronic cardiac silhouette enlargement. 2. Lungs are clear. Chest CTA 04/27/18 03:33 CONCLUSION: 1. Examination is somewhat limited for evaluation of pulmonary embolus due to timing of the contrast bolus. No pulmonary embolus identified. 2. Right greater than left small pleural effusions. 3. Diffuse cardiomegaly. 4. Multiple mildly to moderately enlarged mediastinal lymph nodes nonspecific. Findings are very similar to the prior study of 07/03/2017 ECG Data Attestation: I personally reviewed and interpreted this ECG as follows: Interpretation: The patient had a EKG done on arrival. The patient's EKG reveals sinus rhythm with occasional ventricular premature complexes, heart rate of 97, QRS duration 100 ms, QTC [address] segment elevation. T waves are inverted in lead I, aVL, V4, V5, V6. Discharge Plan Discharge Disposition Patient Disposition: 30 Still Patient Discharge Details Diagnosis: Non-ST elevated myocardial infarction (non-STEMI) Physicians Team ED Provider: Aurora Hastings Primary Care Provider: Primary Care Shonda Cristina Attending Provider: Margarita Mcmahon Status ED Status: Admitted Patient
[2018-04-27 03:23] LABS: Alanine Aminotransferase 45 U/L (12-78); Albumin 2.9 g/dL (3.4-5.0); Anion Gap 10 meq/L (5-15); Aspartate Aminotransferase 40 U/L (15-37); Blood Urea Nitrogen 13 mg/dL (7-18); Carbon Dioxide 27.3 meq/L (21.0-32.0); Chloride 101 meq/L (98-107); Glomerular Filtration Rate 88 mL/min (>89); Glucose,Random 258 mg/dL (74-106); Lipase 72 U/L (73-393); Magnesium 1.5 mg/dL (1.5-2.5); Potassium 3.8 meq/L (3.5-5.1); Sodium 138 meq/L (136-145)
[2018-04-27 03:27] LABS: Alkaline Phosphatase 122 U/L (45-117); Creatine Kinase 164 U/L (39-308); Total Protein 7.1 g/dL (6.4-8.2)
[2018-04-27 03:28] LABS: Activated Partial Thrombo Time 25.5 sec (23.4-31.7); D-Dimer 2.14 mg/L FEU (0.00-0.50); INR 1.3 Ratio; Prothrombin Time 12.9 sec (9.8-11.6)
[2018-04-27 03:43] LABS: Creatine Kinase MB 4.3 ng/mL (0.5-3.6)
[2018-04-27] MEDS ORDERED: Heparin 10,000 UNITS/10 ML Vial (for IV use) IV.PUSH STA (04:00)
--- NOTE | 2018-04-27 04:04 | CT ---
EXAM DATE: 04/27/2018 3:52 AM EST AGE/SEX: 47 years / Male INDICATIONS: Chest pressure with elevated d-dimer; rule out pulmonary embolus. CLINICAL DATA: This is the patient's initial encounter. Patient reports that signs and symptoms have been present for 1 day and indicates a pain score of 4/10. MEDICAL/SURGICAL HISTORY: Chronic obstructive pulmonary disease. Diabetes. Hypertension. Asthma Pacemaker. RADIATION DOSE: 10.56 CTDI (mGy) COMPARISON: [facility] [place]UL[place], 07/03/2017. . TECHNIQUE: Volumetric scanning was performed using a multi-row detector CT scanner during bolus infu katina of 75 ml Omnipaque 350 (iohexol) nonionic water-soluble contrast as a single exam dose. The maricruz a was post processed with a variety of visualization algorithms including full volume maximum intensi ty projection and sliding thin slab reformation. Using automated exposure control and adjustment of the mA and/or kV according to patient size, radiation dose was kept as low as reasonably achievable t o obtain optimal diagnostic quality images. DICOM format image data is available electronically for review and comparison. FINDINGS: Pulmonary Arteries: Examination is limited due to timing of the contrast bolus resulting in diffusel y decreased opacification of the segmental and subsegmental branches of the pulmonary arteries, just limiting evaluation for pulmonary embolus in these regions. No pulmonary embolus is identified.. Lung: Mild atelectasis in the lower lobes bilaterally. Lungs are otherwise clear. Effusion: Small pleural effusions right greater than left. Mediastinum: Moderate diffuse cardiac enlargement. Multiple mildly prominent mediastinal lymph nodes including 1.4 cm right paratracheal lymph node, 1.9 cm right paratracheal lymph node, 0.8 cm prevasc ular lymph node, and 2.5 cm subcarinal lymph node. Prominent bilateral hilar lymph nodes are also not ed. Findings are similar to the prior study. Other: The axilla is unremarkable. CONCLUSION: 1. Examination is somewhat limited for evaluation of pulmonary embolus due to timing of the contrast bolus. No pulmonary embolus identified. 2. Right greater than left small pleural effusions. 3. Diffuse cardiomegaly. 4. Multiple mildly to moderately enlarged mediastinal lymph nodes nonspecific. Findings are very sim ilar to the prior study of 07/03/2017 Electronically signed by: Vishnu John MD 04/27/2018 4:03 AM EST
[2018-04-27] MEDS: Heparin Drip 25,000 UNIT/250 ML BAG IV.CONT PRN (04:17)
[2018-04-27] MEDS ORDERED: Bisacodyl 10 MG Supp RECTAL PRN (04:27)
[2018-04-27] MEDS ORDERED: Acetaminophen 325 MG Tablet PO PRN (04:27)
[2018-04-27] MEDS ORDERED: Sodium Chloride 0.9% 2 ML Flush PRN IV.FLUSH (04:33)
[2018-04-27] MEDS ORDERED: Dextrose 50% in Water 50 ML Vial IV.PUSH PRN (04:47)
--- NOTE | 2018-04-27 04:57 | P.HPIM ---
History of Present Illness Primary Care Physician: No Primary Care Physician History of Present Illness: This is a 47-year-old Homeless male with PMH of HTN, Hyperlipidemia, AICD/Pacer , DM, COPD and Tobacco Abuse who presented to the ER w/ c/o chest pain and palpitations starting earlier tonight. Also notes pain around AICD/Pacer site, no recent injury/trauma, no device firing. Previous admit 07/03-07/08/17 for ACS , s/p Cath 07/03/17 w/ normal vessels, concern for non-ischemic cardiomyopathy, Echo 07/04 w/ EF <20%, d/c'd home w/ [employer] and instructed to follow up for repeat Echo in 3months. Per pt, AICD/Pacer placed in Feb 2018 at another facility, has not had regular outpatient follow-up as he is Homeless and has been off all medications x2 wks for financial reasons. Denies fever, chills, cough or SOB. Chest pain is substernal, intermittent, moderate to severe, 8/10 , non-radiating. On arrival, BP 132/88, HR 114, O2 sat 92% on RA, Temp 99.2. WBC 11.8. D-dimer 2.14. Chemistry unremarkable. Troponin III 0.50. BNP 480. CXR with no acute findings. CTA Chest no PE, bilateral pleural effusions right greater than left, nonspecific mediastinal lymph nodes similar to prior study. Pt currently chest pain free. Device pending interrogation. - Diagnosis (1) NSTEMI (non-ST elevated myocardial infarction) (2) CHF (congestive heart failure) (3) Tobacco abuse Inpatient Certification: I certify that the inpatient services were ordered in accordance with Medicare regulations governing the order. This includes certification that hospital inpatient services are reasonable and necessary and in the case of services not specified as inpatient-only under 42 CFR 419.22(n), that they are appropriately provided as inpatient services in accordance to with the 2-midnight benchmark under 43 CFR 412.3(e) Estimated Total Length of Stay (Days): 2 Plans for Post Hospital Care: Not yet determined Review of Systems PAST FAMILY HISTORY: Reviewed. No h/o DM or CAD All other systems reviewed negative except as stated in HPI [facility] - History History Provided By: Patient - Medical History Medical History: Medical History (Last Reviewed 04/27/18 @ 03:01 by Aurora Hastings MD) Asthma COPD (chronic obstructive pulmonary disease) Diabetes Hx of cardiac pacemaker Hypertension - Surgical History Surgical History: Surgical History (Last Reviewed 04/27/18 @ 03:01 by Aurora Hastings MD) Hx of heart surgery - Tobacco History Tobacco Use In Past 30 Days: Yes Smoking Status: Current every day smoker Tobacco Type: Cigarettes Packs Per Day: 0.5 Cigarettes Per Day: 10.0 - Alcohol History How Often Do You Have a Drink Containing Alcohol: Never - Substance Use History Substance History: No History of Abuse - Travel History Recent Travel in the [place] Within the Last 8 Weeks: No Recent Travel Out of the Country Within the Last 8 Weeks: No - Immunization History Tetanus Immunization: Unsure Medications and Allergies Active Medications: Active Medications Acetaminophen (Tylenol) 650 mg PO Q4H PRN PRN Reason: Temp > 100.4 Al Hydroxide/Mg Hydroxide (Milk Of Magnesia Liq) 30 ml PO Q12H PRN PRN Reason: Mild Constipation Bisacodyl (Dulcolax Supp) 10 mg RECTAL DAILY PRN PRN Reason: SEVERE CONSITIPATION Heparin Sodium/Dextrose (Heparin/D5w 25,000 U/250 Ml) 25,000 unit in 250 mls @ 0 mls/hr IV.CONT TITRATE PRN; Protocol PRN Reason: Per Protocol Last Admin: 04/27/18 04:17 Dose: 1,000 units/hr, 10 mls/hr Lactulose (Lactulose Liq) 30 ml PO DAILY PRN PRN Reason: SEVERE CONSITIPATION Morphine Sulfate (Morphine Inj) 2 mg IV.PUSH Q4H PRN PRN Reason: PAIN 6-10 Nitroglycerin (Nitrostat Sl) 0.4 mg SL Q5M PRN PRN Reason: CHEST PAIN Nitroglycerin (Nitro-Bid 2% Oint) 0.5 inch TOPICAL Q6HR PRN PRN Reason: CHEST PAIN Ondansetron HCl (Zofran Inj) 4 mg IV.PUSH Q6H PRN PRN Reason: NAUSEA OR VOMITING Senna/Docusate Sodium (Chasity-Colace) 1 tab PO BID GALO Sennosides (Senokot) 17.2 mg PO Q12H PRN PRN Reason: Moderate Constipation Sodium Chloride (Ns Flush) 2 ml IV.FLUSH BID GLAO Sodium Chloride (Ns Flush) 2 ml IV.FLUSH PRN PRN PRN Reason: FLUSH AFTER USING IV ACCESS Allergies Allergy/AdvReac Type Severity Reaction Status Date / Time No Known Allergies Allergy Unknown Uncoded 07/03/17 12:38 Home Medications Medication Instructions Recorded Confirmed Type cyclobenzaprine 10 mg PO PRN PRN 04/27/18 04/27/18 History ibuprofen 600 mg PO TID PRN 04/27/18 04/27/18 History oxycodone 30 mg PO Q4-6H PRN 04/27/18 04/27/18 History Exam Vital signs: Vital Signs 04/27/18 02:17 04/27/18 02:41 04/27/18 03:30 Temperature 99.2 F Pulse Rate 114 H 98 H Respiratory Rate 18 18 Blood Pressure 132/88 98/61 L Pulse Oximetry 92 L 98 100 04/27/18 03:44 04/27/18 04:26 Temperature Pulse Rate 98 H 91 H Respiratory Rate 18 22 Blood Pressure 110/76 115/59 L Pulse Oximetry 100 99 Intake & Output 04/26/18 04/26/18 04/27/18 06:59 18:59 06:59 Weight 108.862 kg Narrative: PE: GENERAL: Pleasant middle-aged black male in no acute distress. SKIN: Focused skin assessment warm and dry. HEENT: PERRLA, EOMI. No scleral icterus or conjunctival pallor. No lid lag or facial droop. CARDIOVASCULAR: Regular rate and rhythm. No obvious murmurs to auscultation. No chest tenderness to palpation. RESPIRATORY: No obvious rhonchi or wheezing. Clear to auscultation. Breath sounds equal bilaterally. GASTROINTESTINAL: Abdomen soft, non-tender, nondistended. BS normal. MUSCULOSKELETAL: Extremities without clubbing, cyanosis, or edema. No obvious deformities. NEUROLOGICAL: Awake, alert and oriented x4. No focal neurologic deficits. Moving both upper and lower extremities spontaneously. PSYCHIATRIC: Appropriate mood and affect. Insight and judgment normal. Results - Labs CBC & Chem 7: 04/27/18 02:45 04/27/18 02:40 Labs: Short CBC 04/27/18 Range/Units 02:45 WBC 11.8 H (4.0-11.0) th/mm3 Hgb 14.5 (13.0-17.0) gm/dL Hct 45.0 (39.0-51.0) % Plt Count 230 (150-450) th/mm3 BMP 04/27/18 02:40 Sodium 138 Potassium 3.8 Chloride 101 Carbon Dioxide 27.3 BUN 13 Creatinine 1.09 Calcium 8.0 L Cardiac Enzymes 04/27/18 Range/Units 02:40 Total Creatine Kinase 164 (39-308) U/L CK-MB (CK-2) 4.3 H (0.5-3.6) ng/mL Troponin I 3.50 H* (0.02-0.05) ng/mL Liver Function 04/27/18 Range/Units 02:40 Total Bilirubin 0.6 (0.2-1.0) mg/dL AST 40 H (15-37) U/L ALT 45 (12-78) U/L Alkaline Phosphatase 122 H (45-117) U/L Albumin 2.9 L (3.4-5.0) g/dL - Imaging Impressions Chest X-Ray 04/27/18 02:41 CONCLUSION: 1. Chronic cardiac silhouette enlargement. 2. Lungs are clear. Chest CTA 04/27/18 03:33 CONCLUSION: 1. Examination is somewhat limited for evaluation of pulmonary embolus due to timing of the contrast bolus. No pulmonary embolus identified. 2. Right greater than left small pleural effusions. 3. Diffuse cardiomegaly. 4. Multiple mildly to moderately enlarged mediastinal lymph nodes nonspecific. Findings are very similar to the prior study of 07/03/2017 Caprini VTE Risk Assessment Caprini VTE Risk Assessment: No/Low Risk (score <= 1) Caprini Risk Assessment Model: Point Value = 1 Point Value = 2 Point Value = 3 Point Value = 5 Age 41-60 Minor surgery BMI > 25 kg/m2 Swollen legs Varicose veins or History of unexplained or recurrent spontaneous Oral contraceptives or hormone replacement Sepsis (< 1 month) Serious lung disease, including pneumonia (< 1 month) Abnormal pulmonary function Acute myocardial infarction Congestive heart failure (< 1 month) History of inflammatory bowel disease Medical patient at bed rest Age 61-74 Arthroscopic surgery Major open surgery (> 45 min) Laparoscopic surgery (> 45 min) Malignancy Confined to bed (> 72 hours) Immobilizing plaster cast Central venous access Age >= 75 History of VTE Family history of VTE Factor V Leiden Prothrombin 55312H Lupus anticoagulant Anticardiolipin antibodies Elevated serum homocysteine Heparin-induced thrombocytopenia Other congenital or acquired thrombophilia Stroke (< 1 month) Elective arthroplasty Hip, pelvis, or leg fracture Acute spinal cord injury (< 1 month) Prophylaxis Regimen: Total Risk Factor Score Risk Level Prophylaxis Regimen 0-1 Low Early ambulation 2 Moderate Order ONE of the following: *Sequential Compression Device (SCD) *Heparin 5000 units SQ BID 3-4 Higher Order ONE of the following medications: *Heparin 5000 units SQ TID *Enoxaparin/Lovenox 40 mg SQ daily (WT < 150 kg, CrCl > 30 mL/min) *Enoxaparin/Lovenox 30 mg SQ daily (WT < 150 kg, CrCl > 10-29 mL/min) *Enoxaparin/Lovenox 30 mg SQ BID (WT < 150 kg, CrCl > 30 mL/min) AND/OR *Sequential Compression Device (SCD) 5 or more Highest Order ONE of the following medications: *Heparin 5000 units SQ TID (Preferred with Epidurals) *Enoxaparin/Lovenox 40 mg SQ daily (WT < 150 kg, CrCl > 30 mL/min) *Enoxaparin/Lovenox 30 mg SQ daily (WT < 150 kg, CrCl > 10-29 mL/min) *Enoxaparin/Lovenox 30 mg SQ BID (WT < 150 kg, CrCl > 30 mL/min) AND *Sequential Compression Device (SCD) Assessment and Plan - Assessment (1) NSTEMI (non-ST elevated myocardial infarction) Code(s): I21.4 - Non-ST elevation (NSTEMI) myocardial infarction Status: Acute (2) CHF (congestive heart failure) Code(s): I50.9 - Heart failure, unspecified Status: Acute (3) Tobacco abuse Code(s): Z72.0 - Tobacco use Status: Acute - Plan A/P: 1. NSTEMI: acute onset of chest pain, trop 3.50, EKG w/ no ST elevation, currently chest pain free, on Heparin gtt. Admit to [facility], check serial cardiac enzymes, continue w/ NTG/Morphine as needed. Consult Cardiology for further eval/intervention, NPO. 2. CHF: Acute on Chronic. Systolic. Echo 07/04/17 w/ EF <20%, off all medications x2 wks. CTA w/ bilateral pleural effusions, no PE, images reviewed , not clinically overloaded at this time, will monitor closely, I/O, resume diuretic therapy. AICD/Pacer to be interrogated. 3. DM: Sliding scale w/ Accu-Cheks. 4. Tobacco Abuse: Pt counselled. No NicoDerm to avoid vasoconstriction. 5. DVT Prophylaxis: Heparin gtt 6. Social work for d/c planning as needed. 7. Case discussed w/ ER physician at length, labs/records/imaging reviewed by me.
[2018-04-27] MEDS: Insulin NovoLOG Aspart Correctional Sugar Inj SQ SCH ×4 (08:15→20:20)
[2018-04-27] MEDS: Senna/Docusate Sodium 8.6/50 MG Tablet PO SCH ×2 (08:15→20:19)
[2018-04-27] MEDS: Sodium Chloride 0.9% 2 ML Flush BID IV.FLUSH SCH ×2 (08:16→20:20)
[2018-04-27] MEDS: Morphine Sulfate Inj 2 MG/ML Vial IV.PUSH PRN ×2 (08:20→20:22)
[2018-04-27 10:51] LABS: Activated Partial Thrombo Time 35.2 sec (23.4-31.7); INR 1.3 Ratio; Prothrombin Time 12.7 sec (9.8-11.6)
[2018-04-27 10:53] LABS: D-Dimer 2.03 mg/L FEU (0.00-0.50)
--- NOTE | 2018-04-27 12:54 | CATHPROC ---
[employer] HIS Report Study Information Study Number Admission Scheduled Start Study Start [id number] Apr 27 2018 4:29AM 04/27/2018 Apr 27 2018 12:31PM [place] [facility] Cardiac Catheterization Admit Source Facility Department Emergency department [facility] Physician and Clinical Staff Initial MD Hoffmann, Satinder Parts Remover Darren Moe RN Other cathlab, cathlab Recorder Justine Ceja,RT(R) ScrBianca Briseno,BOX SPRING MAKER TECH2 Equipment Time Mortgage Servicing Specialist Description Size Mfg Part Number Used/Scraped TRANSDUCER, TRUWAVE [id number] 12:37 CISNEROS PORTER * Used W/STOCKCOCK *[id number] 12:37 Skyword BLANKET,WARM AIR CCL * Used *[id number] 12:37 Skyword PACK, CCL CUSTOM * Used *[id number] 12:37 Skyword SUPPORT, ARTERIAL ADULT [id number] *[id number] Used [id number] 12:37 Pulse.io MEDICAL WIRE, EXCHANGE 260CM 3MMJ 260CM Used *[id number] 12:37 NAMIC MANIFOLD, 4 PORT * Used *[id number] 12:37 NYCOMED OMNIPAQUE, 350 MG, 150ML 150ML [id number] Used SHEATH, FR6 TRANSRADIAL [id number] 12:37 Intentio MEDICAL FR 6 Used SLENDER 10CM *[id number] History: Allergies Allergy Reaction No Known Allergies History: Risk Factors Family History of Hypertension Dyslipidemia Previous ID Previous Heart Failure Premature CAD No No No No No Prior Valve Prior PCI Prior CABG Surgery No No No Cerebrovascular Peripheral Artery Chronic Lung On Dialysis Diabetes Disease Disease Disease No No No No No History: Symptoms/Diagnosis Selection Items SOB History: Stress Tests Stress or Imaging Studies Performed No History: Other Current Smoker Packs a Day Years Used Pack Years Yes 1 20 20 Chronological Log Time Study Chronological Log 12:49:09 Patient arrived via Bed. 12:49:09 Patient Name, D.O.B, / Armband Verified By R.N. 12:49:10 Consent signed by the physician and the patient and verified by the [facility] staff. 12:49:24 Patient refusing procedure. Patient moved back to bed and returned to his room. aware. End Study - Contrast Media Used In Study Contrast Total Opened (mL) Total Used (mL) Total Wasted (mL) Unspecified 0 0 0 End Study - Radiation Exposure Fluoro Time (minutes) 0.0 End Study - Patient Disposition Complications Transferred To No Telemetry Bed
--- NOTE | 2018-04-27 15:37 | MB ---
cc: Damaris Butterfield MD DATE: 04/27/2018 REASON FOR CONSULTATION: Congestive heart failure, possible defibrillator shock, tachyarrhythmia. HISTORY OF PRESENT ILLNESS: Mr. Costa is a 47-year-old gentleman with history of congestive heart failure, cardiomyopathy, has a previous defibrillator . He is a chronic smoker. He has a defibrillator implanted in February 2018 just being admitted to the hospital due to shortness of breath and chest pain. This gentleman was not taking his normal medication because he cannot afford it and was admitted. I was consulted for evaluation. PAST MEDICAL HISTORY: Reviewed and the patient was evaluated. ALLERGIES: NONE. SOCIAL HISTORY: The gentleman is still smoking at least 1/2 a pack of cigarettes a day. FAMILY HISTORY: Noncontributory to his current medical condition. MEDICATIONS: Mr. Costa is currently on aspirin, heparin, oxycodone 30 mg every 6 hours, Zofran p.r.n. REVIEW OF SYSTEMS: Currently, no chest pain. No chest discomfort. No vomiting. No fever. PHYSICAL EXAMINATION: GENERAL: Alert, fully oriented. VITAL SIGNS: His blood pressure 124/77, pulse 96, respiratory rate 18. LUNGS: Ventilated. CARDIOVASCULAR: S1, S2. Regular. No gallop. ABDOMEN: Soft. No mass. EXTREMITIES: No edema. ELECTROCARDIOGRAM: Sinus rhythm, diffuse ST changes. LABORATORY DATA: Hemoglobin is 14.5, white blood cell 5.4. INR 1.3. Potassium is 3.8, creatinine is 1.09. Troponin 2.98. At the beginning, troponin was 3.50. ASSESSMENT AND RECOMMENDATION: Mr. Costa is currently stable. Need for workup chest pain and shortness of breath. This is the only known chest pain in the past couple of weeks. His troponin is high, coming down. On CT scan, there is no indication of pulmonary embolism. He was not taking his medication for a month. left heart catheterization last June, but at this point, troponin and the gentleman complained of chest pain. He is going to need a left heart catheterization. Case discussed extensively with him. Dr. Hoffmann will be consulted. Also, I will initiate a beta alexandre as well as angiotensin-converting enzyme inhibitor. Before discharge, this gentleman needs to be evaluated by social studies teacher for medication management. MD Christelle Garcia , 12:13 PM , 12:22 PM
--- NOTE | 2018-04-27 17:10 | P.PNADD ---
Addendum to Inpatient Note Reason for Addendum: Additional Documentation Additional information: Cardiology consult appreciated. The patient was taken for catheterization and then refused the procedure. He said he did not want to be "cut up". He denied chest pain or shortness of breath. After being informed about the benefits of catheterization he said that he would be willing to attempt a catheterization again if needed. Continue cardiac regimen including heparin gtt. Follow up with cardiology.
--- NOTE | 2018-04-27 17:25 | ECG ---
Date Performed: 04/27/2018 Time Performed: 02:34:30 PTAGE: 47 years EKG: Sinus rhythm WITH OCCASIONAL VENTRICULAR PREMATURE COMPLEXES POSSIBLE LEFT ATRIAL ENLARGEMENT LEFT ANTERIOR FASCI CULAR BLOCK INFERIOR MYOCARDIAL INFARCTION MODERATE T-WAVE ABNORMALITY ABNORMAL ECG PREVIOUS TRACING : 07/06/2017 09.04 Since the previous tracing, no significant change noted DOCTOR: Aura Jorge Interpretating Date/Time 04/27/2018 17:23:48
[2018-04-27] MEDS ORDERED: Influenza (Quadrivalent) Vaccine 0.5 ML Syringe IM ONE (20:00)
--- NOTE | 2018-04-28 00:49 | MB ---
cc: Satinder Hoffmann DO DATE: 04/27/2018 REASON FOR CONSULTATION: NSTEMI. HISTORY OF PRESENT ILLNESS: Kalia Costa is a 47-year-old male who presented to [facility] due to chest pain and palpitations. He states that this started earlier in the day and he was found to have an elevated troponin. He previously was here in 06/2017 and underwent cardiac catheterization, which showed normal vessels, and was found to have a nonischemic cardiomyopathy. He went home with a LifeVest and in 02/2018, he had an ICD placed at another facility. He has been off all his medications for financial reasons. He was seen by Dr. Butterfield and due to the elevated troponin, I was asked to see him for cardiac catheterization. PAST MEDICAL HISTORY: 1. Asthma. 2. COPD. 3. Diabetes. 4. Hypertension. 5. Nonischemic cardiomyopathy. PAST SURGICAL HISTORY: 1. Cardiac catheterization (07/03/2017) with nonobstructive coronary artery disease. 2. ICD placed (02/2018) at an outside facility. ALLERGIES: NO KNOWN DRUG ALLERGIES. MEDICATIONS: 1. Oxycodone 30 mg every 4-6 hours as needed. 2. Cyclobenzaprine 10 mg as needed. 3. Ibuprofen 600 mg t.i.d. as needed. FAMILY HISTORY: Denies premature coronary artery disease or sudden cardiac within the family. SOCIAL HISTORY: The patient smokes a 1/2 pack of cigarettes daily. Denies alcohol or drug abuse. REVIEW OF SYSTEMS: Fourteen systems were reviewed including osteopathic. Pertinent positives and negatives above, otherwise negative. PHYSICAL EXAMINATION: VITAL SIGNS: Temperature 97.8, heart rate 96, blood pressure 124/77, respirations 16, pulse oximetry 99% on 2 liters. GENERAL: The patient appears well, in no acute distress. Alert, awake and oriented x3. HEENT: Extraocular muscles intact. Mucous membranes moist. NECK: Supple. No JVD at 45 degrees. No carotid bruits heard bilaterally. Carotid upstroke is brisk in nature. HEART: Regular rate and rhythm. Positive first and second heart sounds with no noted murmurs, gallops or rubs. LUNGS: Clear to auscultation bilaterally. No wheezes, rales or rhonchi. ABDOMEN: Soft, nontender, nondistended. No organomegaly noted. EXTREMITIES: Show no clubbing, cyanosis or edema. Femoral and distal pulses intact bilaterally. NEUROLOGIC: No focal deficits. SKIN: Warm, dry and intact. OSTEOPATHIC: No kyphoscoliosis, lordosis or paraspinal tender points. LABORATORY DATA: Hemoglobin 14.5, hematocrit 45.0, platelets 230. Potassium 3.8, BUN 13, creatinine 1.09. Troponin 3.5, decreasing to 2.98. Electrocardiogram (04/27/2018 0234 hours): Sinus rhythm with occasional PVC, possible left atrial enlargement, with left anterior fascicular block, inferior myocardial infarction, ST-T wave changes laterally, cannot exclude ischemia, no significant change from 06/2017. IMPRESSION: 1. Non-ST elevation myocardial infarction. 2. Previous nonischemic cardiomyopathy. 3. Hypertension. 4. Noncompliance due to financial reasons. 5. Acute on chronic congestive heart failure. 6. Tobacco abuse. RECOMMENDATIONS: 1. Mr. Costa presented with chest pain and palpitations with an elevated troponin. 2. He previously underwent cardiac catheterization in 06/2017 and I reviewed the films and agreed, no significant coronary artery disease. 3. Due to the significant elevation of his troponins, I agree with Dr. Butterfield that he should undergo cardiac catheterization to rule out change in his coronary anatomy. 4. Risks, benefits, and alternatives were discussed with him in the room and at that time, he consented. 5. He came back to the medical lab specialist and at that time became combative with the staff and declined the procedure. I saw him after he got back to his room and once again discussed with him the need for cardiac catheterization, and he states that he refuses at this time as he wants no further procedures. 6. I spoke to him for greater than 3 minutes about tobacco cessation. 7. I will defer further management to Dr. Butterfield for his cardiomyopathy. Thank you for allowing me to see Kalia Costa. If there are any questions, please do not hesitate to call. DO CLOTILDE Devine/isra , 12:21 AM , 12:34 AM
[2018-04-28 02:21] LABS: Baso # (Auto) 0.1 th/mm3 (0.0-0.2); Baso % (Auto) 0.9 % (0.0-2.0); Eos # (Auto) 0.2 th/mm3 (0.0-0.4); Eos % (Auto) 1.7 % (0.0-4.0); Hematocrit 43.9 % (39.0-51.0); Hemoglobin 14.1 gm/dL (13.0-17.0); Lymph # (Auto) 3.8 th/mm3 (1.0-4.8); Lymph % (Auto) 34.1 % (9.0-44.0); Mean Corpuscular Hemoglobin 27.6 pg (27.0-34.0); Mean Corpuscular Volume 86.1 fL (80.0-100.0); Mean Platelet Volume 8.5 fL (7.0-11.0); Mono % (Auto) 8.7 % (0.0-8.0); Neut # (Auto) 6.1 th/mm3 (1.8-7.7); Neut % (Auto) 54.6 % (16.0-70.0); Platelet Count 223 th/mm3 (150-450); Red Cell Distribution Width 16.7 % (11.6-17.2); White Blood Count 11.1 th/mm3 (4.0-11.0)
[2018-04-28 02:44] LABS: Alanine Aminotransferase 39 U/L (12-78); Albumin 2.8 g/dL (3.4-5.0); Alkaline Phosphatase 114 U/L (45-117); Anion Gap 10 meq/L (5-15); Aspartate Aminotransferase 30 U/L (15-37); Blood Urea Nitrogen 19 mg/dL (7-18); Calcium 8.9 mg/dL (8.5-10.1); Carbon Dioxide 27.4 meq/L (21.0-32.0); Chloride 101 meq/L (98-107); Glomerular Filtration Rate Greater Than 89 mL/min (>89); Glucose,Random 171 mg/dL (74-106); Sodium 138 meq/L (136-145)
[2018-04-28] MEDS: Heparin Drip 25,000 UNIT/250 ML BAG IV.CONT PRN (02:51)
[2018-04-28] MEDS: Lisinopril 10 MG Tablet PO SCH (09:20)
[2018-04-28] MEDS: Sodium Chloride 0.9% 2 ML Flush BID IV.FLUSH SCH ×2 (09:20→20:24)
[2018-04-28] MEDS: Insulin NovoLOG Aspart Correctional Sugar Inj SQ SCH ×4 (09:22→20:24)
--- NOTE | 2018-04-28 13:59 | P.PN ---
Subjective Interval history: Follow-up non-ST elevation [place] April 28, 2018-patient seen and examined, reports of shortness of breath however denies any chest pain. Now patient is willing to go for left heart catheterization. However this can only be done tomorrow in the afternoon per cardiology with whom the case was discussed this morning. Physical Exam Vital signs: Vital Signs 04/27/18 14:00 04/27/18 15:00 04/27/18 16:00 Temperature 98.2 F Pulse Rate 90 90 90 Respiratory Rate 18 Blood Pressure 131/87 Pulse Oximetry 98 04/27/18 17:00 04/27/18 18:00 04/27/18 19:00 Temperature Pulse Rate 96 H 96 H 98 H Respiratory Rate Blood Pressure Pulse Oximetry 04/27/18 20:00 04/27/18 20:25 04/27/18 21:00 Temperature 99.0 F Pulse Rate 94 H 94 H Respiratory Rate 18 20 Blood Pressure 114/76 Pulse Oximetry 18 L 04/27/18 22:00 04/27/18 23:00 04/28/18 00:00 Temperature 97.3 F L Pulse Rate 92 H 85 92 H Respiratory Rate 18 Blood Pressure 100/77 Pulse Oximetry 96 04/28/18 01:00 04/28/18 01:30 04/28/18 01:52 Temperature Pulse Rate 98 H 88 Respiratory Rate 20 18 Blood Pressure Pulse Oximetry 04/28/18 02:00 04/28/18 03:00 04/28/18 04:00 Temperature 98.6 F Pulse Rate 89 86 83 Respiratory Rate 20 Blood Pressure 102/65 Pulse Oximetry 96 04/28/18 05:00 04/28/18 06:00 04/28/18 08:00 Temperature 97.6 F Pulse Rate 91 H 86 94 H Respiratory Rate 18 Blood Pressure 111/73 Pulse Oximetry 95 04/28/18 12:00 Temperature 97.6 F Pulse Rate 94 H Respiratory Rate 18 Blood Pressure 111/73 Pulse Oximetry 95 Intake & Output 04/27/18 04/28/18 04/28/18 18:59 06:59 18:59 Intake Total 480 / 480 490 / 490 Output Total 700 / 700 1025 / 1025 Balance -220 / -220 -535 / -535 Weight 109.2 kg Intake: IV 250 / 250 Heparin/D5W 25,000 U/250 mL 25, 250 / 250 000 unit In 250 ml @ Per Protocol IV.CONT TITRATE PRN Rx #:[id number] Oral 480 / 480 240 / 240 Output: Urine 700 / 700 1025 / 1025 Other: # Voids 2 1 Date of Last Bowel Movement 04/25/18 Narrative: PE: GENERAL: Pleasant middle-aged black male in no acute distress. SKIN: Focused skin assessment warm and dry. HEENT: PERRLA, EOMI. No scleral icterus or conjunctival pallor. No lid lag or facial droop. CARDIOVASCULAR: Regular rate and rhythm. No obvious murmurs to auscultation. No chest tenderness to palpation. RESPIRATORY: No obvious rhonchi or wheezing. Clear to auscultation. Breath sounds equal bilaterally. GASTROINTESTINAL: Abdomen soft, non-tender, nondistended. BS normal. MUSCULOSKELETAL: Extremities without clubbing, cyanosis, or edema. No obvious deformities. NEUROLOGICAL: Awake, alert and oriented x4. No focal neurologic deficits. Moving both upper and lower extremities spontaneously. PSYCHIATRIC: Appropriate mood and affect. Insight and judgment normal. Results - Labs CBC & Chem 7: 04/28/18 02:03 04/28/18 02:03 Laboratory Results - last 24 hr 04/27/18 04/27/18 04/27/18 16:59 19:52 20:08 WBC RBC Hgb Hct MCV MCH MCHC RDW Plt Count MPV Neut % (Auto) Lymph % (Auto) [place] % (Auto) Eos % (Auto) Baso % (Auto) Neut # (Auto) Lymph # (Auto) [place] # (Auto) Eos # (Auto) Baso # (Auto) WBC Differential Differential Comment APTT Sodium Potassium Chloride Carbon Dioxide Anion Gap BUN Creatinine Estimated GFR POC Glucose 212 H 213 H Random Glucose Calcium Total Bilirubin AST ALT Alkaline Phosphatase Troponin I 2.27 H* Total Protein Albumin 04/27/18 04/28/18 04/28/18 20:08 02:03 02:03 WBC 11.1 H RBC 5.10 Hgb 14.1 Hct 43.9 MCV 86.1 MCH 27.6 MCHC 32.0 RDW 16.7 Plt Count 223 MPV 8.5 Neut % (Auto) 54.6 Lymph % (Auto) 34.1 [place] % (Auto) 8.7 H Eos % (Auto) 1.7 Baso % (Auto) 0.9 Neut # (Auto) 6.1 Lymph # (Auto) 3.8 [place] # (Auto) 1.0 H Eos # (Auto) 0.2 Baso # (Auto) 0.1 WBC Differential . Differential Comment Auto diff final APTT 32.3 H Sodium 138 Potassium 4.0 Chloride 101 Carbon Dioxide 27.4 Anion Gap 10 BUN 19 H Creatinine 1.01 Estimated GFR Greater than 89 POC Glucose Random Glucose 171 H Calcium 8.9 D Total Bilirubin 0.7 AST 30 ALT 39 Alkaline Phosphatase 114 Troponin I Total Protein 7.0 Albumin 2.8 L 04/28/18 04/28/18 04/28/18 02:03 07:45 12:05 WBC RBC Hgb Hct MCV MCH MCHC RDW Plt Count MPV Neut % (Auto) Lymph % (Auto) [place] % (Auto) Eos % (Auto) Baso % (Auto) Neut # (Auto) Lymph # (Auto) [place] # (Auto) Eos # (Auto) Baso # (Auto) WBC Differential Differential Comment APTT 33.8 H Sodium Potassium Chloride Carbon Dioxide Anion Gap BUN Creatinine Estimated GFR POC Glucose 159 H 310 H Random Glucose Calcium Total Bilirubin AST ALT Alkaline Phosphatase Troponin I Total Protein Albumin Assessment and Plan - Assessment (1) NSTEMI (non-ST elevated myocardial infarction) Code(s): I21.4 - Non-ST elevation (NSTEMI) myocardial infarction Status: Acute (2) CHF (congestive heart failure) Code(s): I50.9 - Heart failure, unspecified Status: Acute (3) Tobacco abuse Code(s): Z72.0 - Tobacco use Status: Acute - Plan 47-year-old man with 1. NSTEMI: After initially refusing left heart catheterization, patient is now willing to undergo for procedure. Currently chest pain free, on Heparin gtt, w/ NTG/Morphine as needed. Appreciate input from cardiology will plan for left heart catheterization April 29, 2018 in the afternoon 2. CHF: Acute on Chronic. Systolic. Echo 07/04/17 w/ EF <20%, off all medications x2 wks. CTA w/ bilateral pleural effusions, no PE, images reviewed.monitor closely, I/O, resume diuretic therapy. AICD/Pacer to be interrogated. 3. DM: Sliding scale w/ Accu-Cheks. 4. Tobacco Abuse: Pt counselled. No NicoDerm to avoid vasoconstriction. 5. DVT Prophylaxis: Heparin gtt
[2018-04-28] MEDS: Senna/Docusate Sodium 8.6/50 MG Tablet PO SCH ×2 (14:01→20:24)
[2018-04-28] MEDS: Morphine Sulfate Inj 2 MG/ML Vial IV.PUSH PRN (20:25)
--- NOTE | 2018-04-28 23:07 | P.PNCA ---
Subjective Interval history: Now willing to undergo catheterization Medications and Allergies Active Medications: Active Medications Acetaminophen (Tylenol) 650 mg PO Q4H PRN PRN Reason: Temp > 100.4 Al Hydroxide/Mg Hydroxide (Milk Of Magnesia Liq) 30 ml PO Q12H PRN PRN Reason: Mild Constipation Last Admin: 04/28/18 09:25 Dose: 30 ml Albuterol (Duoneb Neb (Prn)) 1 ampul NEB Q4HR NEB PRN PRN Reason: wheezing, sob Last Admin: 04/28/18 01:49 Dose: 1 ampul Bisacodyl (Dulcolax Supp) 10 mg RECTAL DAILY PRN PRN Reason: SEVERE CONSITIPATION Carvedilol (Coreg) 3.125 mg PO BID [facility] Last Admin: 04/28/18 20:24 Dose: 3.125 mg Dextrose (D50w Vial) 50 ml IV.PUSH UNSCH PRN PRN Reason: PER HYPOGLYCEMIA PROTOCOL Glucagon (Glucagon Inj) 1 mg OTHER PRN PRN PRN Reason: for Hypoglycemia Protocol Heparin Sodium/Dextrose (Heparin/D5w 25,000 U/250 Ml) 25,000 unit in 250 mls @ 0 mls/hr IV.CONT TITRATE PRN; Protocol PRN Reason: Per Protocol Last Admin: 04/28/18 02:51 Dose: 1,300 units/hr, 13 mls/hr Insulin Aspart (Novolog Insulin Correctional Sugar Inj) 0 unit SQ ACHS [facility]; Protocol Last Admin: 04/28/18 20:24 Dose: 5 unit Lactulose (Lactulose Liq) 30 ml PO DAILY PRN PRN Reason: SEVERE CONSITIPATION Lisinopril (Prinivil) 10 mg PO DAILY [facility] Last Admin: 04/28/18 09:20 Dose: 10 mg Morphine Sulfate (Morphine Inj) 2 mg IV.PUSH Q4H PRN PRN Reason: CHEST PAIN Last Admin: 04/28/18 20:25 Dose: 2 mg Nitroglycerin (Nitrostat Sl) 0.4 mg SL Q5M PRN PRN Reason: CHEST PAIN Nitroglycerin (Nitro-Bid 2% Oint) 0.5 inch TOPICAL Q6HR PRN PRN Reason: CHEST PAIN Ondansetron HCl (Zofran Inj) 4 mg IV.PUSH Q6H PRN PRN Reason: NAUSEA OR VOMITING Oxycodone HCl (Roxicodone) 30 mg PO Q6H PRN PRN Reason: pain 6-10 Last Admin: 04/28/18 22:20 Dose: 30 mg Senna/Docusate Sodium (Chasity-Colace) 1 tab PO BID [facility] Last Admin: 04/28/18 20:24 Dose: Not Given Sennosides (Senokot) 17.2 mg PO Q12H PRN PRN Reason: Moderate Constipation Sodium Chloride (Ns Flush) 2 ml IV.FLUSH BID [facility] Last Admin: 04/28/18 20:24 Dose: 2 ml Sodium Chloride (Ns Flush) 2 ml IV.FLUSH PRN PRN PRN Reason: FLUSH AFTER USING IV ACCESS Allergies Allergy/AdvReac Type Severity Reaction Status Date / Time No Known Allergies Allergy Verified 04/27/18 07:51 Home Medications Medication Instructions Recorded Confirmed Type cyclobenzaprine 10 mg PO PRN PRN 04/27/18 04/27/18 History ibuprofen 600 mg PO TID PRN 04/27/18 04/27/18 History oxycodone 30 mg PO Q4-6H PRN 04/27/18 04/27/18 History Physical Exam Vital signs: Vital Signs 04/28/18 00:00 04/28/18 01:00 04/28/18 01:30 Temperature 97.3 F L Pulse Rate 92 H 98 H Respiratory Rate 18 20 Blood Pressure 100/77 Pulse Oximetry 96 04/28/18 01:52 04/28/18 02:00 04/28/18 03:00 Temperature Pulse Rate 88 89 86 Respiratory Rate 18 Blood Pressure Pulse Oximetry 04/28/18 04:00 04/28/18 05:00 04/28/18 06:00 Temperature 98.6 F Pulse Rate 83 91 H 86 Respiratory Rate 20 Blood Pressure 102/65 Pulse Oximetry 96 04/28/18 07:00 04/28/18 08:00 04/28/18 10:00 Temperature 97.6 F Pulse Rate 87 94 H 92 H Respiratory Rate 18 Blood Pressure 111/73 Pulse Oximetry 95 04/28/18 11:00 04/28/18 12:00 04/28/18 14:00 Temperature 97.6 F Pulse Rate 87 96 H 88 Respiratory Rate 18 Blood Pressure 111/73 Pulse Oximetry 95 04/28/18 15:00 04/28/18 16:00 04/28/18 17:00 Temperature 97.6 F Pulse Rate 88 90 90 Respiratory Rate 18 Blood Pressure 104/72 Pulse Oximetry 97 04/28/18 18:00 04/28/18 19:54 04/28/18 20:00 Temperature 98.5 F Pulse Rate 84 88 Respiratory Rate 18 Blood Pressure 101/76 Pulse Oximetry 99 96 Intake & Output 04/28/18 04/28/18 04/29/18 06:59 18:59 06:59 Intake Total 490 / 490 Output Total 1025 / 1025 Balance -535 / -535 Weight 109.2 kg Intake: IV 250 / 250 Heparin/D5W 25,000 U/250 mL 25, 250 / 250 000 unit In 250 ml @ Per Protocol IV.CONT TITRATE PRN Rx #:[id number] Oral 240 / 240 Output: Urine 1025 / 1025 Other: # Voids 1 Date of Last Bowel Movement 04/25/18 04/28/18 Narrative: PE: GENERAL: Pleasant middle-aged black male in no acute distress. SKIN: Focused skin assessment warm and dry. HEENT: PERRLA, EOMI. No scleral icterus or conjunctival pallor. No lid lag or facial droop. CARDIOVASCULAR: Regular rate and rhythm. No obvious murmurs to auscultation. No chest tenderness to palpation. RESPIRATORY: No obvious rhonchi or wheezing. Clear to auscultation. Breath sounds equal bilaterally. GASTROINTESTINAL: Abdomen soft, non-tender, nondistended. BS normal. MUSCULOSKELETAL: Extremities without clubbing, cyanosis, or edema. No obvious deformities. NEUROLOGICAL: Awake, alert and oriented x4. No focal neurologic deficits. Moving both upper and lower extremities spontaneously. PSYCHIATRIC: Appropriate mood and affect. Insight and judgment normal. Results 04/28/18 02:03 04/28/18 02:03 Cardiac Enzymes 04/27/18 04/27/18 04/27/18 Range/Units 02:40 02:45 07:45 AST 40 H (15-37) U/L CK-MB (CK-2) 4.3 H (0.5-3.6) ng/mL Troponin I 3.50 H* 2.98 H* (0.02-0.05) ng/mL B-Natriuretic Peptide 480 H (0-100) pg/mL 11/04/28/18 04/28/18 Range/Units 20:08 02:03 13:01 AST 30 (15-37) U/L CK-MB (CK-2) (0.5-3.6) ng/mL Troponin I 2.27 H* (0.02-0.05) ng/mL B-Natriuretic Peptide 480 H (0-100) pg/mL Coagulation 04/27/18 04/27/18 04/27/18 Range/Units 02:45 02:45 10:20 PT 12.9 H 12.7 H (9.8-11.6) sec APTT 25.5 35.2 H D (23.4-31.7) sec B-Natriuretic Peptide 480 H (0-100) pg/mL 04/27/18 04/28/18 04/28/18 Range/Units 20:08 02:03 13:01 PT (9.8-11.6) sec APTT 32.3 H 33.8 H (23.4-31.7) sec B-Natriuretic Peptide 480 H (0-100) pg/mL 04/28/18 Range/Units 13:04 PT (9.8-11.6) sec APTT 40.6 H D (23.4-31.7) sec B-Natriuretic Peptide (0-100) pg/mL CBC 04/27/18 04/28/18 Range/Units 02:45 02:03 WBC 11.8 H 11.1 H (4.0-11.0) th/mm3 RBC 5.24 5.10 (4.50-5.90) mil/mm3 Hgb 14.5 14.1 (13.0-17.0) gm/dL Hct 45.0 43.9 (39.0-51.0) % Plt Count 230 223 (150-450) th/mm3 Neut # (Auto) 6.9 6.1 (1.8-7.7) th/mm3 Lymph # (Auto) 3.7 3.8 (1.0-4.8) th/mm3 [place] # (Auto) 0.9 1.0 H (0.0-0.9) th/mm3 Eos # (Auto) 0.1 0.2 (0.0-0.4) th/mm3 Baso # (Auto) 0.1 0.1 (0.0-0.2) th/mm3 Comprehensive Metabolic Panel 04/27/18 04/28/18 Range/Units 02:40 02:03 Sodium 138 138 (136-145) meq/L Potassium 3.8 4.0 (3.5-5.1) meq/L Chloride 101 101 (98-107) meq/L Carbon Dioxide 27.3 27.4 (21.0-32.0) meq/L BUN 13 19 H (7-18) mg/dL Creatinine 1.09 1.01 (0.60-1.30) mg/dL Calcium 8.0 L 8.9 D (8.5-10.1) mg/dL AST 40 H 30 (15-37) U/L ALT 45 39 (12-78) U/L Alkaline Phosphatase 122 H 114 (45-117) U/L Total Protein 7.1 7.0 (6.4-8.2) g/dL Albumin 2.9 L 2.8 L (3.4-5.0) g/dL Intake and Output 04/28/18 04/28/18 04/29/18 14:59 22:59 06:59 Other: Date of Last Bowel Movement 04/28/18 - Imaging and Cardiology Imaging: Impressions Chest X-Ray 04/27/18 02:41 CONCLUSION: 1. Chronic cardiac silhouette enlargement. 2. Lungs are clear. Chest CTA 04/27/18 03:33 CONCLUSION: 1. Examination is somewhat limited for evaluation of pulmonary embolus due to timing of the contrast bolus. No pulmonary embolus identified. 2. Right greater than left small pleural effusions. 3. Diffuse cardiomegaly. 4. Multiple mildly to moderately enlarged mediastinal lymph nodes nonspecific. Findings are very similar to the prior study of 07/03/2017 Assessment and Plan - Assessment (1) NSTEMI (non-ST elevated myocardial infarction) Code(s): I21.4 - Non-ST elevation (NSTEMI) myocardial infarction Status: Acute (2) CHF (congestive heart failure) Code(s): I50.9 - Heart failure, unspecified Status: Acute (3) Tobacco abuse Code(s): Z72.0 - Tobacco use Status: Acute - Plan 1) NSTEMI Possible type 2 Quite elevated for CHF Plan for [facility] tomorrow afternoon 2) Acute on chronic CHF 3) NPO after breakfast for afternoon cath 4) Risks, benefits and alternatives discussed with patient
[2018-04-29] MEDS: Heparin Drip 25,000 UNIT/250 ML BAG IV.CONT PRN (04:22)
[2018-04-29] MEDS: Insulin NovoLOG Aspart Correctional Sugar Inj SQ SCH (08:45)
[2018-04-29] MEDS: Lisinopril 10 MG Tablet PO SCH (10:23)
[2018-04-29] MEDS: Sodium Chloride 0.9% 2 ML Flush BID IV.FLUSH SCH (10:23)
[2018-04-29] MEDS: Senna/Docusate Sodium 8.6/50 MG Tablet PO SCH (10:23)
[2018-04-29 10:41] VITALS: BP 106/80; RESP 18; TEMP 99.3; O2SAT 95
[2018-04-29 10:53] VITALS: PULSE 88
--- NOTE | 2018-04-29 10:57 | P.PN ---
Subjective Interval history: Follow-up non-ST elevation CT April 28, 2018-patient seen and examined, reports of shortness of breath however denies any chest pain. Now patient is willing to go for left heart catheterization. However this can only be done tomorrow in the afternoon per cardiology with whom the case was discussed this morning. April 29, 2018-patient seen and examined, denies any chest pain however complaint of lower extremity swelling and pain. Plan for heart catheterization today Physical Exam Vital signs: Vital Signs 04/28/18 11:00 04/28/18 12:00 04/28/18 14:00 Temperature 97.6 F Pulse Rate 87 96 H 88 Respiratory Rate 18 Blood Pressure 111/73 Pulse Oximetry 95 04/28/18 15:00 04/28/18 16:00 04/28/18 17:00 Temperature 97.6 F Pulse Rate 88 90 90 Respiratory Rate 18 Blood Pressure 104/72 Pulse Oximetry 97 04/28/18 18:00 04/28/18 19:00 04/28/18 19:54 Temperature Pulse Rate 84 88 Respiratory Rate Blood Pressure Pulse Oximetry 99 04/28/18 20:00 04/28/18 20:30 04/28/18 21:00 Temperature 98.5 F Pulse Rate 84 86 Respiratory Rate 18 20 Blood Pressure 101/76 Pulse Oximetry 96 04/28/18 22:00 04/28/18 22:50 04/28/18 23:00 Temperature Pulse Rate 83 79 Respiratory Rate 20 Blood Pressure Pulse Oximetry 04/29/18 00:00 04/29/18 01:00 04/29/18 02:00 Temperature 97.6 F Pulse Rate 82 87 90 Respiratory Rate 18 Blood Pressure 102/60 Pulse Oximetry 97 04/29/18 03:00 04/29/18 04:00 04/29/18 05:00 Temperature 98.0 F Pulse Rate 96 H 93 H 97 H Respiratory Rate 18 Blood Pressure 113/65 Pulse Oximetry 93 L 04/29/18 06:00 04/29/18 07:00 04/29/18 07:34 Temperature Pulse Rate 88 84 88 Respiratory Rate 16 Blood Pressure Pulse Oximetry 98 04/29/18 08:00 04/29/18 09:00 04/29/18 10:00 Temperature 99.3 F Pulse Rate 88 92 H 88 Respiratory Rate 18 Blood Pressure 106/80 Pulse Oximetry 95 Intake & Output 04/28/18 04/29/18 04/29/18 18:59 06:59 18:59 Intake Total 730 / 730 Output Total 100 / 100 Balance 630 / 630 Intake: IV 250 / 250 Heparin/D5W 25,000 U/250 mL 25, 250 / 250 000 unit In 250 ml @ Per Protocol IV.CONT TITRATE PRN Rx #:[id number] Oral 480 / 480 Output: Urine 100 / 100 Other: Date of Last Bowel Movement 04/28/18 04/28/18 Narrative: GENERAL: middle-aged black male in no acute distress. SKIN: Focused skin assessment warm and dry. HEENT: PERRLA, EOMI. No scleral icterus or conjunctival pallor. No lid lag or facial droop. CARDIOVASCULAR: Regular rate and rhythm. No obvious murmurs to auscultation. No chest tenderness to palpation. RESPIRATORY: No obvious rhonchi or wheezing. Clear to auscultation. Breath sounds equal bilaterally. GASTROINTESTINAL: Abdomen soft, non-tender, nondistended. BS normal. MUSCULOSKELETAL: Extremities without clubbing, cyanosis. +1BLE edema. No obvious deformities. NEUROLOGICAL: Awake, alert and oriented x4. No focal neurologic deficits. Moving both upper and lower extremities spontaneously. PSYCHIATRIC: Appropriate mood and affect. Insight and judgment normal. Results - Labs CBC & Chem 7: 04/28/18 02:03 04/28/18 02:03 Laboratory Results - last 24 hr 04/28/18 04/28/18 04/28/18 12:05 13:01 13:04 APTT 40.6 H D POC Glucose 310 H B-Natriuretic Peptide 480 H 04/28/18 04/28/18 04/28/18 17:24 19:33 22:25 APTT 28.2 D POC Glucose 450 H 272 H B-Natriuretic Peptide 04/29/18 07:59 APTT POC Glucose 242 H B-Natriuretic Peptide Assessment and Plan - Assessment (1) NSTEMI (non-ST elevated myocardial infarction) Code(s): I21.4 - Non-ST elevation (NSTEMI) myocardial infarction Status: Acute (2) CHF (congestive heart failure) Code(s): I50.9 - Heart failure, unspecified Status: Acute (3) Tobacco abuse Code(s): Z72.0 - Tobacco use Status: Acute - Plan 47-year-old man with 1. NSTEMI: After initially refusing left heart catheterization, patient is now willing to undergo for procedure. Currently chest pain free, on Heparin gtt, w/ NTG/Morphine as needed. Appreciate input from cardiology and plan for left heart catheterization today April 29, 2018 in the afternoon 2. CHF: Acute on Chronic. Systolic. Echo 07/04/17 w/ EF <20%, off all medications x2 wks. CTA w/ bilateral pleural effusions, no PE, images reviewed.monitor closely, I/O, start Lasix therapy. AICD/Pacer to be interrogated. 3. DM: Sliding scale w/ Accu-Cheks. 4. Tobacco Abuse: Pt counselled. No NicoDerm to avoid vasoconstriction. 5. DVT Prophylaxis: Heparin gtt
--- NOTE | 2018-04-29 12:32 | P.DS ---
Date of admission: 04/27/18 04:29 Primary care physician: No Primary Care Physician Brief History from admission: This is a 47-year-old Homeless male with PMH of HTN, Hyperlipidemia, AICD/Pacer , DM, COPD and Tobacco Abuse who presented to the ER w/ c/o chest pain and palpitations starting earlier tonight. Also notes pain around AICD/Pacer site, no recent injury/trauma, no device firing. Previous admit 07/03-07/08/17 for ACS , s/p Cath 07/03/17 w/ normal vessels, concern for non-ischemic cardiomyopathy, Echo 07/04 w/ EF <20%, d/c'd home w/ [facility] and instructed to follow up for repeat Echo in 3months. Per pt, AICD/Pacer placed in Feb 2018 at another facility, has not had regular outpatient follow-up as he is Homeless and has been off all medications x2 wks for financial reasons. Denies fever, chills, cough or SOB. Chest pain is substernal, intermittent, moderate to severe, 8/10 , non-radiating. On arrival, BP 132/88, HR 114, O2 sat 92% on RA, Temp 99.2. WBC 11.8. D-dimer 2.14. Chemistry unremarkable. Troponin III 0.50. BNP 480. CXR with no acute findings. CTA Chest no PE, bilateral pleural effusions right greater than left, nonspecific mediastinal lymph nodes similar to prior study. Pt currently chest pain free. Device pending interrogation. DS: Diagnosis - Discharge Diagnosis (1) NSTEMI (non-ST elevated myocardial infarction) Status: Acute (2) CHF (congestive heart failure) Status: Acute (3) Tobacco abuse Status: Acute DS: Summary Hospital Course: Prior To signing AMA, patient was treated for: 1. NSTEMI: After initially refusing left heart catheterization, patient is now willing to undergo for procedure. Currently chest pain free, on Heparin gtt, w/ NTG/Morphine as needed. Appreciate input from cardiology and plan for left heart catheterization today April 29, 2018 in the afternoon 2. CHF: Acute on Chronic. Systolic. Echo 07/04/17 w/ EF <20%, off all medications x2 wks. CTA w/ bilateral pleural effusions, no PE, images reviewed.monitor closely, I/O, start Lasix therapy. AICD/Pacer to be interrogated. 3. DM: Sliding scale w/ Accu-Cheks. 4. Tobacco Abuse: Pt counselled. No NicoDerm to avoid vasoconstriction. 5. DVT Prophylaxis: Heparin gtt - Time Spent with Patient Total time spent providing and/or coordinating discharge services: Less than 30 minutes - Quality: VTE Deep Vein Thrombosis/Pulmonary Embolism Present on Admission: No Exam Vital signs: Vital Signs 04/28/18 14:00 04/28/18 15:00 04/28/18 16:00 Temperature 97.6 F Pulse Rate 88 88 90 Respiratory Rate 18 Blood Pressure 104/72 Pulse Oximetry 97 04/28/18 17:00 04/28/18 18:00 04/28/18 19:00 Temperature Pulse Rate 90 84 88 Respiratory Rate Blood Pressure Pulse Oximetry 04/28/18 19:54 04/28/18 20:00 04/28/18 20:30 Temperature 98.5 F Pulse Rate 84 Respiratory Rate 18 20 Blood Pressure 101/76 Pulse Oximetry 99 96 04/28/18 21:00 04/28/18 22:00 04/28/18 22:50 Temperature Pulse Rate 86 83 Respiratory Rate 20 Blood Pressure Pulse Oximetry 04/28/18 23:00 04/29/18 00:00 04/29/18 01:00 Temperature 97.6 F Pulse Rate 79 82 87 Respiratory Rate 18 Blood Pressure 102/60 Pulse Oximetry 97 04/29/18 02:00 04/29/18 03:00 04/29/18 04:00 Temperature 98.0 F Pulse Rate 90 96 H 93 H Respiratory Rate 18 Blood Pressure 113/65 Pulse Oximetry 93 L 04/29/18 05:00 04/29/18 06:00 04/29/18 07:00 Temperature Pulse Rate 97 H 88 84 Respiratory Rate Blood Pressure Pulse Oximetry 04/29/18 07:34 04/29/18 08:00 04/29/18 09:00 Temperature 99.3 F Pulse Rate 88 88 92 H Respiratory Rate 16 18 Blood Pressure 106/80 Pulse Oximetry 98 95 04/29/18 10:00 04/29/18 10:57 Temperature Pulse Rate 88 88 Respiratory Rate Blood Pressure Pulse Oximetry Intake & Output 04/28/18 04/29/18 04/29/18 18:59 06:59 18:59 Intake Total 730 / 730 Output Total 100 / 100 Balance 630 / 630 Intake: IV 250 / 250 Heparin/D5W 25,000 U/250 mL 25, 250 / 250 000 unit In 250 ml @ Per Protocol IV.CONT TITRATE PRN Rx #:[id number] Oral 480 / 480 Output: Urine 100 / 100 Other: Date of Last Bowel Movement 04/28/18 04/28/18 Narrative: GENERAL: middle-aged black male in no acute distress. SKIN: Focused skin assessment warm and dry. HEENT: PERRLA, EOMI. No scleral icterus or conjunctival pallor. No lid lag or facial droop. CARDIOVASCULAR: Regular rate and rhythm. No obvious murmurs to auscultation. No chest tenderness to palpation. RESPIRATORY: No obvious rhonchi or wheezing. Clear to auscultation. Breath sounds equal bilaterally. GASTROINTESTINAL: Abdomen soft, non-tender, nondistended. BS normal. MUSCULOSKELETAL: Extremities without clubbing, cyanosis. +1BLE edema. No obvious deformities. NEUROLOGICAL: Awake, alert and oriented x4. No focal neurologic deficits. Moving both upper and lower extremities spontaneously. PSYCHIATRIC: Appropriate mood and affect. Insight and judgment normal. Results Procedures completed during hospitalization: none Labs on day of discharge: Labs from last 24 hours 04/29/18 04/28/18 04/28/18 07:59 22:25 19:33 APTT 28.2 D POC Glucose 242 H 272 H B-Natriuretic Peptide 04/28/18 04/28/18 04/28/18 17:24 13:04 13:01 APTT 40.6 H D POC Glucose 450 H B-Natriuretic Peptide 480 H - Impressions ITS Impressions Chest X-Ray 04/27/18 02:41 CONCLUSION: 1. Chronic cardiac silhouette enlargement. 2. Lungs are clear. Chest CTA 04/27/18 03:33 CONCLUSION: 1. Examination is somewhat limited for evaluation of pulmonary embolus due to timing of the contrast bolus. No pulmonary embolus identified. 2. Right greater than left small pleural effusions. 3. Diffuse cardiomegaly. 4. Multiple mildly to moderately enlarged mediastinal lymph nodes nonspecific. Findings are very similar to the prior study of 07/03/2017 Discharge Plan - Discharge Order Discharge Orders: AMA Discharge (Routine); Ordered 04/29/18 Ordered By: Dino Mckinney - Physicians Team Primary Care Provider: Primary Care Physici,No Attending Provider: Dino Mckinney Other Providers: Satinder Hoffmann DO
== END 2018-04-29 12:30 | disposition left against medical advice (07) ==
LOC: NEPE 02:16 → NEDA 04:29 → HCIS 10:50
PROVIDERS: ADMIT Hospitalist; ATTEND Hospitalist